=== PATIENT | female | born 1950 | race Caucasian/White ===

== ENCOUNTER 2016-12-21 11:32 | Emergency (ER) | payer MEDICARE ==
[2016-12-21] MEDS ORDERED: SODIUM CHLORIDE 0.9% 500 ML IV STA (11:35)
--- NOTE | 2016-12-21 11:39 | ED ---
General Adult HPI - General Stated complaint: Seizure Time Seen by Provider: 12/21/16 11:32 Source: RN notes reviewed - History of Present Illness Initial comments: This is a 66-year-old female who presents to the emergency department with past medical history significant for a previous stroke 2 years ago. Patient states she has right-sided residual weakness. Patient comes in today stating that at home she started to fade off and she could hear everybody talking around her but she couldn't see them and she couldn't speak family states she did not have any seizure-like activity and they also states she was not responding to them as she is indicated. When EMS arrived she still was difficult to arouse but a sternal rub seemed to awake her and she was able to talk to them and is back at her baseline. Patient currently has no complaints per patient denies any recent fever chills or cough per patient denies any chest pain palpitations or difficulty breathing. Patient denies headache patient denies numbness weakness. Patient denies any syncopal or near syncopal episode. Patient denies any injury or trauma. - Related Data Home Medications Medication Instructions Recorded Confirmed Phenytoin Sodium Extended 200 mg PO BID 08/09/15 12/21/16 [Dilantin] Clopidogrel [Plavix] 75 mg PO DAILY 12/21/16 12/21/16 Gabapentin [Neurontin] 100 mg PO BID 12/21/16 12/21/16 Simvastatin [Zocor] 40 mg PO HS 12/21/16 12/21/16 Allergies Allergy/AdvReac Type Severity Reaction Status Date / Time Iodinated Contrast Media - Allergy Anaphylaxis Verified 12/21/16 12:22 Oral and [Iodinated Contrast Media - IV Dye] Penicillins Allergy Swelling Verified 12/21/16 12:22 Review of Systems ROS Statement: Those systems with pertinent positive or pertinent negative responses have been documented in the HPI. ROS Other: All systems not noted in ROS Statement are negative. Past Medical History Past Medical History: COPD, CVA/TIA, Pneumonia, Seizure Disorder Additional Past Medical History / Comment(s): Pt is being admitted with seizure , CVA, AMS. Other HX: epilepsy- pt believes her last true seizure was 9 yrs ago History of Any Multi-Drug Resistant Organisms: None Reported Past Surgical History: Appendectomy, Tubal Ligation Additional Past Surgical History / Comment(s): part of Right ovary removed Past Anesthesia/Blood Transfusion Reactions: No Reported Reaction Additional Past Anesthesia/Blood Transfusion Reaction / Comment(s): Pt states she has never recieved blood. Past Psychological History: No Psychological Hx Reported Additional Psychological History / Comment(s): Pt states she has no psychological conditions. She lives with her spouse and adult manish. She uses no assistive device. She no longer drives-her spouse and manish take her places. She is independent. Smoking Status: Current every day smoker Past Alcohol Use History: None Reported Additional Past Alcohol Use History / Comment(s): Pt states since May 2015 she has cut down on her smoking to about 5 cigarettes a day. She is trying to quit altogether. Past Drug Use History: None Reported - Past Family History Mother Family Medical History: Respiratory Disorder Additional Family Medical History / Comment(s): Mother had pneumo's. She was a heavy smoker. She comitted suicide at 59yrs of age. Father Family Medical History: Congestive Heart Failure (CHF), Myocardial Infarction ( [place]), Renal Disease Additional Family Medical History / Comment(s): Father was an alcoholic. He had CHF and 7 [place]'s. He had one kidney that never developed after age 2yrs. He of kidney failure. General Exam - General Exam Comments Initial Comments: GENERAL: Patient is well-developed and well-nourished. Patient is nontoxic and well- hydrated and is in no acute distress. ENT: Neck is soft and supple. No significant lymphadenopathy is noted. Oropharynx is clear. Moist mucous membranes. Neck has full range of motion without eliciting any pain. EYES: The sclera were anicteric and conjunctiva were pink and moist. Extraocular movements were intact and pupils were equal round and reactive to light. Eyelids were unremarkable. PULMONARY: Unlabored respirations. Good breath sounds bilaterally. No audible rales rhonchi or wheezing was noted. CARDIOVASCULAR: There is a regular rate and rhythm without any murmurs gallops or rubs. ABDOMEN: Soft and nontender with normal bowel sounds. No palpable organomegaly was noted. There is no palpable pulsatile mass. SKIN: Skin is clear with no lesions or rashes and otherwise unremarkable. NEUROLOGIC: Patient is alert and oriented x3. Cranial nerves II through XII are grossly intact. Patient has some right-sided weakness in her leg when compared to the left however she states this is normal for her and it is not any worse than normal.. Normal speech, volume and content. Symmetrical smile. MUSCULOSKELETAL: Normal extremities with adequate strength and full range of motion. No lower extremity swelling or edema. No calf tenderness. LYMPHATICS: No significant lymphadenopathy is noted PSYCHIATRIC: Normal psychiatric evaluation. Normal interpersonal interactions appears functionally intact in deals appropriately with others. No signs of depression. No signs of anxiety. Course Vital Signs 12/21/16 12/21/16 12/21/16 11:33 12:50 13:41 Temperature 97.4 F L Pulse Rate 81 81 93 Respiratory 16 16 16 Rate Blood Pressure 129/76 137/75 134/77 O2 Sat by Pulse 95 96 96 Oximetry Medical Decision Making - Medical Decision Making EKG shows normal sinus rhythm at 77 bpm OK interval 136 QRS is 70 QT interval 388 QTC is 439 per patient's EKG shows no ST segment elevation or depression or T-wave abdomen is noted. showed up after a little well-nourished spoke with him he was 100% convinced that she had had a seizure at home 2. states he has been witnessing seizures for 45 years and is 100% sure today was a seizure. I loaded the patient with 500 of Dilantin. Patient states she did not take her Dilantin yesterday or today - Lab Data Result diagrams: 12/21/16 11:52 12/21/16 11:52 Lab Results 12/21/16 12/21/16 12/21/16 Range/Units 11:52 11:52 11:52 WBC 8.4 (3.8-10.6) k/uL RBC 5.33 (3.80-5.40) m/uL Hgb 16.7 H (11.4-16.0) gm/dL Hct 50.4 H (34.0-46.0) % MCV 94.6 (80.0-100.0) fL MCH 31.4 (25.0-35.0) pg MCHC 33.2 (31.0-37.0) g/dL RDW 12.1 (11.5-15.5) % Plt Count 184 (150-450) k/uL Neutrophils % 78 % Lymphocytes % 16 % Monocytes % 4 % Eosinophils % 1 % Basophils % 0 % Neutrophils # 6.5 (1.3-7.7) k/uL Lymphocytes # 1.3 (1.0-4.8) k/uL Monocytes # 0.4 (0-1.0) k/uL Eosinophils # 0.1 (0-0.7) k/uL Basophils # 0.0 (0-0.2) k/uL PT (9.0-12.0) sec INR (<1.1) APTT (22.0-30.0) sec Sodium 141 (137-145) mmol/L Potassium 4.4 (3.5-5.1) mmol/L Chloride 103 (98-107) mmol/L Carbon Dioxide 26 (22-30) mmol/L Anion Gap 12 mmol/L BUN 7 (7-17) mg/dL Creatinine 0.53 (0.52-1.04) mg/dL Est GFR (MDRD) Af Amer >60 (>60 ml/min/1.73 sqM) Est GFR (MDRD) Non-Af >60 (>60 ml/min/1.73 sqM) Glucose 165 H (74-99) mg/dL Calcium 9.4 (8.4-10.2) mg/dL Total Bilirubin 0.4 (0.2-1.3) mg/dL AST 25 (14-36) U/L ALT 40 (9-52) U/L Alkaline Phosphatase 139 H (38-126) U/L Total Creatine Kinase 50 (30-135) U/L CK-MB (CK-2) 3.7 H* (0.0-2.4) ng/mL CK-MB (CK-2) Rel Index 7.4 Troponin I <0.012 (0.000-0.034) ng/mL Total Protein 7.1 (6.3-8.2) g/dL Albumin 4.1 (3.5-5.0) g/dL Urine Color Urine Appearance (Clear) Urine pH (5.0-8.0) Ur Specific [place] (1.001-1.035) Urine Protein (Negative) Urine Glucose (UA) (Negative) Urine Ketones (Negative) Urine Blood (Negative) Urine Nitrate (Negative) Urine Bilirubin (Negative) Urine Urobilinogen (<2.0) mg/dL Ur Leukocyte Esterase (Negative) Phenytoin ug/mL 12/21/16 12/21/16 12/21/16 Range/Units 11:52 12:06 12:47 WBC (3.8-10.6) k/uL RBC (3.80-5.40) m/uL Hgb (11.4-16.0) gm/dL Hct (34.0-46.0) % MCV (80.0-100.0) fL MCH (25.0-35.0) pg MCHC (31.0-37.0) g/dL RDW (11.5-15.5) % Plt Count (150-450) k/uL Neutrophils % % Lymphocytes % % Monocytes % % Eosinophils % % Basophils % % Neutrophils # (1.3-7.7) k/uL Lymphocytes # (1.0-4.8) k/uL Monocytes # (0-1.0) k/uL Eosinophils # (0-0.7) k/uL Basophils # (0-0.2) k/uL PT 10.1 (9.0-12.0) sec INR 1.0 (<1.1) APTT 23.6 (22.0-30.0) sec Sodium (137-145) mmol/L Potassium (3.5-5.1) mmol/L Chloride (98-107) mmol/L Carbon Dioxide (22-30) mmol/L Anion Gap mmol/L BUN (7-17) mg/dL Creatinine (0.52-1.04) mg/dL Est GFR (MDRD) Af Amer (>60 ml/min/1.73 sqM) Est GFR (MDRD) Non-Af (>60 ml/min/1.73 sqM) Glucose (74-99) mg/dL Calcium (8.4-10.2) mg/dL Total Bilirubin (0.2-1.3) mg/dL AST (14-36) U/L ALT (9-52) U/L Alkaline Phosphatase (38-126) U/L Total Creatine Kinase (30-135) U/L CK-MB (CK-2) (0.0-2.4) ng/mL CK-MB (CK-2) Rel Index Troponin I (0.000-0.034) ng/mL Total Protein (6.3-8.2) g/dL Albumin (3.5-5.0) g/dL Urine Color Light Yellow Urine Appearance Clear (Clear) Urine pH 6.5 (5.0-8.0) Ur Specific [place] 1.002 (1.001-1.035) Urine Protein Negative (Negative) Urine Glucose (UA) Negative (Negative) Urine Ketones Negative (Negative) Urine Blood Negative (Negative) Urine Nitrate Negative (Negative) Urine Bilirubin Negative (Negative) Urine Urobilinogen <2.0 (<2.0) mg/dL Ur Leukocyte Esterase Negative (Negative) Phenytoin 5.4 ug/mL Disposition Clinical Impression: Generalized seizure Disposition: HOME SELF-CARE Condition: Good Instructions: Recurrent Seizures in Adults (ED) Referrals: Anup Ron DO [Primary Care Provider] - 1-2 days Time of Disposition: 14:14
[2016-12-21 11:41] VITALS: RESP 16
[2016-12-21 12:03] LABS: Basophils % (A) 0 %; CH 32.1; CHCM 34.1; Eosinophils # (A) 0.1 k/uL (0-0.7); Eosinophils % (A) 1 %; HCT 50.4 % (34.0-46.0); HDW 2.36; HGB 16.7 gm/dL (11.4-16.0); Luc # (Auto) 0.08; Luc % (Auto) 1; Lymphocytes # (A) 1.3 k/uL (1.0-4.8); Lymphocytes % (A) 16 %; MCH 31.4 pg (25.0-35.0); MCHC 33.2 g/dL (31.0-37.0); MCV 94.6 fL (80.0-100.0); Mean Platelet Volume 7.4; Monocytes # (A) 0.4 k/uL (0-1.0); Monocytes % (A) 4 %; Neutrophils # (A) 6.5 k/uL (1.3-7.7); Neutrophils % (A) 78 %; RBC 5.33 m/uL (3.80-5.40); RDW 12.1 % (11.5-15.5); WBC 8.4 k/uL (3.8-10.6); WBC (Perox) 8.56
[2016-12-21 12:13] LABS: ALT 40 U/L (9-52); AST 25 U/L (14-36); Alkaline Phosphatase 139 U/L (38-126); Anion Gap 12 mmol/L; Blood Urea Nitrogen 7 mg/dL (7-17); Calcium 9.4 mg/dL (8.4-10.2); Carbon Dioxide 26 mmol/L (22-30); Chloride 103 mmol/L (98-107); Glucose 165 mg/dL (74-99); Non-African American GFR(MDRD) >60 (>60 ml/min/1.73 sqM); Potassium 4.4 mmol/L (3.5-5.1); Sodium 141 mmol/L (137-145); Total Bilirubin 0.4 mg/dL (0.2-1.3); Total Protein 7.1 g/dL (6.3-8.2)
[2016-12-21 12:20] LABS: Appearance,Urine Clear (Clear); Bilirubin,Urine Negative (Negative); Glucose,Urine (UA) Negative (Negative); Ketones,Urine Negative (Negative); Leukocyte Esterase,Urine Negative (Negative); Nitrite,Urine Negative (Negative); PH, Urine 6.5 (5.0-8.0); Protein,Urine Negative (Negative); Specific Gravity,Urine 1.002 (1.001-1.035); UA Billing (MACRO vs. MICRO) CHEM; Urobilinogen,Urine <2.0 mg/dL (<2.0)
[2016-12-21 12:21] LABS: Partial Thromboplastin Time 23.6 sec (22.0-30.0); Prothrombin Time 10.1 sec (9.0-12.0)
[2016-12-21 12:23] LABS: Creatine Kinase 50 U/L (30-135)
--- NOTE | 2016-12-21 12:30 | CT ---
EXAMINATION TYPE: CT brain wo con DATE OF EXAM: 12/21/2016 12:23 PM COMPARISON: 04/15/2016 HISTORY: 66-year-old female, left sided weakness, possible seizure TECHNIQUE: Examination was done in axial plane without intravenous contrast. Coronal and sagittal reconstructio ns performed. CT DLP: 930.8 mGycm Automated exposure control for dose reduction was used. FINDINGS: There is no evidence of acute intracranial hemorrhage, acute ischemic changes, mass, mass-effect, or extra-axial fluid collection. There is no effacement of cerebral sulci or basal subarachnoid cister ns. There is no hydrocephalus. There is no midline shift. Chaves-white matter distinction is preserv ed. Mild cerebral atrophy. Paranasal sinuses and mastoid air cells are well pneumatized. Leftward nasal septal deviation. Orbits and globes are intact. IMPRESSION: No acute intracranial abnormality seen. Similar mild atrophy.
--- NOTE | 2016-12-21 12:34 | XR ---
EXAMINATION TYPE: XR chest 2V DATE OF EXAM: 12/21/2016 12:30 PM COMPARISON: 04/15/2016 HISTORY: 66 year-old female altered mental status, seizure, confusion TECHNIQUE: Frontal and lateral views FINDINGS: Heart is normal size. Mild atelectatic arch calcifications. There is some prominence to the central p ulmonary arteries which could signify underlying pulmonary arterial hypertension. Mild interstitial p rominence and mild hyperinflation are unchanged. No consolidation or pleural effusion. IMPRESSION: Chronic changes, possible underlying COPD. No acute process seen.
[2016-12-21 12:35] LABS: Troponin I <0.012 ng/mL (0.000-0.034)
[2016-12-21 12:47] LABS: Creatine Kinase MB 3.7 ng/mL (0.0-2.4)
[2016-12-21] MEDS ORDERED: PHENYTOIN SODIUM INJ 500 MG in SODIUM CHLORIDE 0.9% 100 ML IVPB STA (14:13)
[2016-12-21 14:30] VITALS: BP 128/73; PULSE 77; TEMP 97.8
== END 2016-12-21 15:06 | disposition home or self-care (01) ==
LOC: EC 11:32
DX: G40.909 Epilepsy, unspecified, not intractable, without status epilepticus (principal); I69.351 Hemiplegia and hemiparesis following cerebral infarction affecting right dominant side; Z79.899 Other long term (current) drug therapy; Z79.02 Long term (current) use of antithrombotics/antiplatelets; Z88.0 Allergy status to penicillin; Z91.041 Radiographic dye allergy status; F17.210 Nicotine dependence, cigarettes, uncomplicated
CPT/HCPCS: 36415; 93005; 80053; 82550; 82553; 80185; 84484; 85025; 85610; 85730; 81003; 71020; 70450; 96365; 96361 ×2; 99285; J1165

== ENCOUNTER 2019-07-23 08:16 | Emergency (ER) | payer MEDICARE ==
[2019-07-23] MEDS ORDERED: SODIUM CHLORIDE 0.9% 500 ML 500 ML IV STA (08:23)
[2019-07-23 08:28] LABS: Glucose,Whole Blood 138 mg/dL (75-99)
[2019-07-23] MEDS ORDERED: FAMOTIDINE 20 MG/2 ML VIAL IV STA (08:30)
[2019-07-23] MEDS ORDERED: diphenhydrAMINE 50 MG/ML 1 ML VIAL IVP STA (08:30)
[2019-07-23] MEDS ORDERED: methylPREDNISolone SOD SUCCI 125 MG/2 ML VIAL IV STA (08:30)
[2019-07-23 08:43] LABS: Basophils # (A) 0.1 k/uL (0-0.2); Basophils % (A) 1 %; Eosinophils # (A) 0.1 k/uL (0-0.7); Eosinophils % (A) 1 %; HCT 46.6 % (34.0-46.0); HGB 16.1 gm/dL (11.4-16.0); Lymphocytes # (A) 1.7 k/uL (1.0-4.8); Lymphocytes % (A) 17 %; MCH 31.9 pg (25.0-35.0); MCHC 34.4 g/dL (31.0-37.0); MCV 92.5 fL (80.0-100.0); Mean Platelet Volume 7.8; Monocytes # (A) 0.4 k/uL (0-1.0); Monocytes % (A) 4 %; Neutrophils # (A) 7.5 k/uL (1.3-7.7); Neutrophils % (A) 76 %; Platelet Count 208 k/uL (150-450); RBC 5.04 m/uL (3.80-5.40); RDW 14.1 % (11.5-15.5); WBC 9.9 k/uL (3.8-10.6)
[2019-07-23 08:48] VITALS: TEMP 98.2
[2019-07-23 08:49] LABS: ALT 37 U/L (9-52); AST 27 U/L (14-36); African American GFR (CKD) >90 (>60 ml/min/1.73 sqM); Albumin 4.2 g/dL (3.5-5.0); Alkaline Phosphatase 159 U/L (38-126); Anion Gap 8 mmol/L; Blood Urea Nitrogen 8 mg/dL (7-17); Calcium 9.3 mg/dL (8.4-10.2); Carbon Dioxide 26 mmol/L (22-30); Chloride 102 mmol/L (98-107); Glucose 140 mg/dL (74-99); Potassium 4.6 mmol/L (3.5-5.1); Sodium 136 mmol/L (137-145); Total Bilirubin 0.5 mg/dL (0.2-1.3); Total Protein 7.3 g/dL (6.3-8.2)
[2019-07-23 08:52] LABS: INR 0.9 (<1.2); Partial Thromboplastin Time 25.8 sec (22.0-30.0); Prothrombin Time 9.7 sec (9.0-12.0)
--- NOTE | 2019-07-23 08:57 | ED ---
General Adult HPI - General Chief complaint: Neuro Symptoms/Deficit Stated complaint: POSS CVA Time Seen by Provider: 07/23/19 08:16 Source: EMS, RN notes reviewed Mode of arrival: EMS Limitations: altered mental status, physical limitation - History of Present Illness Initial comments: This is a 69-year-old female who presents emergency Department strokelike symptoms on the left side. Patient has a past history of a stroke on the right side with residual deficit but to what degree is difficult to assess the is a poor historian and the is unable to tell us. Patient did receive TPA in the past and post-TPA did have a intracranial hemorrhage according to the . Patient also has had occasional seizures since the first stroke. Patient comes in today because she started at 7:00 having some tingling to the left side of her face decreased visual acuity out of the left eye and decreased ability to move the left arm and leg. This history comes from the the patient is unable to give me the history she does not appear to fully understand what is going on at this time. Doing an NIH scale because the patient does not fully seem to understand. states yesterday she was complaining of a left ear ache and she did put something in her ear yesterday but aside from that states she was at her normal baseline. - Related Data Home Medications Medication Instructions Recorded Confirmed Phenytoin Sodium Extended 200 mg PO BID 08/09/15 07/23/19 [Dilantin] Clopidogrel [Plavix] 75 mg PO DAILY 12/21/16 07/23/19 Gabapentin [Neurontin] 200 mg PO QAM 12/21/16 07/23/19 Aspirin EC [Ecotrin Low Dose] 81 mg PO DAILY 07/23/19 07/23/19 Gabapentin [Neurontin] 100 mg PO BID@1400,2100 07/23/19 07/23/19 Allergies Allergy/AdvReac Type Severity Reaction Status Date / Time Iodinated Contrast- Oral and Allergy Anaphylaxis Verified 07/23/19 08:58 IV Dye [Iodinated Contrast Media - IV Dye] Penicillins Allergy Swelling Verified 07/23/19 08:58 Review of Systems ROS Statement: Those systems with pertinent positive or pertinent negative responses have been documented in the HPI. ROS Other: All systems not noted in ROS Statement are negative. Past Medical History Past Medical History: COPD, CVA/TIA, Pneumonia, Seizure Disorder Additional Past Medical History / Comment(s): Pt is being admitted with seizure, CVA, AMS. Other HX: epilepsy- pt believes her last true seizure was 9 yrs ago History of Any Multi-Drug Resistant Organisms: None Reported Past Surgical History: Appendectomy, Tubal Ligation Additional Past Surgical History / Comment(s): part of Right ovary removed Past Anesthesia/Blood Transfusion Reactions: No Reported Reaction Additional Past Anesthesia/Blood Transfusion Reaction / Comment(s): Pt states she has never recieved blood. Past Psychological History: No Psychological Hx Reported Smoking Status: Current every day smoker Past Alcohol Use History: None Reported Past Drug Use History: None Reported - Past Family History Mother Family Medical History: Respiratory Disorder Additional Family Medical History / Comment(s): Mother had pneumo's. She was a heavy smoker. She comitted suicide at 59yrs of age. Father Family Medical History: Congestive Heart Failure (CHF), Myocardial Infarction ([place]), Renal Disease Additional Family Medical History / Comment(s): Father was an alcoholic. He had CHF and 7 [place]'s. He had one kidney that never developed after age 2yrs. He of kidney failure. General Exam - General Exam Comments Initial Comments: GENERAL: Patient is well-developed and well-nourished. Patient is nontoxic and well- hydrated and is in mild distress. ENT: Neck is soft and supple. No significant lymphadenopathy is noted. Oropharynx is clear. Moist mucous membranes. Neck has full range of motion without eliciting any pain. EYES: The sclera were anicteric and conjunctiva were pink and moist. Extraocular movements were intact and pupils were equal round and reactive to light. Eyelids were unremarkable. PULMONARY: Unlabored respirations. Good breath sounds bilaterally. No audible rales rhonc hi or wheezing was noted. CARDIOVASCULAR: There is a regular rate and rhythm without any murmurs gallops or rubs. ABDOMEN: Soft and nontender with normal bowel sounds. No palpable organomegaly was noted. There is no palpable pulsatile mass. SKIN: Skin is clear with no lesions or rashes and otherwise unremarkable. NEUROLOGIC: Patient is alert and oriented times one. For the further specifics of the neurologic exam please see the NIH worksheet. Patient's inability to understand the situation makes it very difficult to do an accurate assessment of her neurologic exam MUSCULOSKELETAL: Patient would not move the right side of her body at all for me but states she has some deficit there but normally can move it a little. LYMPHATICS: No significant lymphadenopathy is noted PSYCHIATRIC: Unable to assess since patient does not appear to understand what is going on in the emergency department. Limitations: altered mental status, physical limitation Course Vital Signs 07/23/19 07/23/19 07/23/19 08:18 08:20 08:35 Temperature 98.2 F Pulse Rate 101 H 90 94 Respiratory 22 20 20 Rate Blood Pressure 179/81 154/88 164/85 O2 Sat by Pulse 92 L 96 96 Oximetry 07/23/19 07/23/19 07/23/19 08:50 09:05 09:20 Temperature Pulse Rate 91 86 83 Respiratory 20 16 16 Rate Blood Pressure 157/80 144/77 133/86 O2 Sat by Pulse 98 98 99 Oximetry 07/23/19 10:02 Temperature Pulse Rate 86 Respiratory 16 Rate Blood Pressure 128/74 O2 Sat by Pulse 99 Oximetry Medical Decision Making - Medical Decision Making EKG shows a normal sinus rhythm at 90 bpm MO interval is 132 QRS is 72 QT interval 366 QTC is 447. Patient's EKG shows no ST segment elevation or depression. After seeing the patient family called us code stroke. I spoke with Dr. Karimi about this patient he reviewed the CAT scans and spoke with the family and the patient's symptoms at this time resolving so he determined that no intervention would be necessary at this time. CT of the brain shows no acute abnormality. CTA of the head and neck shows no acute abnormality. I will begin to reevaluate the patient she had complete resolution of her symptoms. I spoke with [facility] they agreed to accept the patient we transfer the patient. - Lab Data Result diagrams: 07/23/19 08:30 07/23/19 08:30 Lab Results 07/23/19 07/23/19 07/23/19 Range/Units 08:20 08:30 08:30 WBC 9.9 (3.8-10.6) k/uL RBC 5.04 (3.80-5.40) m/uL Hgb 16.1 H (11.4-16.0) gm/dL Hct 46.6 H (34.0-46.0) % MCV 92.5 (80.0-100.0) fL MCH 31.9 (25.0-35.0) pg MCHC 34.4 (31.0-37.0) g/dL RDW 14.1 (11.5-15.5) % Plt Count 208 (150-450) k/uL Neutrophils % 76 % Lymphocytes % 17 % Monocytes % 4 % Eosinophils % 1 % Basophils % 1 % Neutrophils # 7.5 (1.3-7.7) k/uL Lymphocytes # 1.7 (1.0-4.8) k/uL Monocytes # 0.4 (0-1.0) k/uL Eosinophils # 0.1 (0-0.7) k/uL Basophils # 0.1 (0-0.2) k/uL PT (9.0-12.0) sec INR (<1.2) APTT (22.0-30.0) sec Sodium 136 L (137-145) mmol/L Potassium 4.6 (3.5-5.1) mmol/L Chloride 102 (98-107) mmol/L Carbon Dioxide 26 (22-30) mmol/L Anion Gap 8 mmol/L BUN 8 (7-17) mg/dL Creatinine 0.56 (0.52-1.04) mg/dL Est GFR (CKD-EPI)AfAm >90 (>60 ml/min/1.73 sqM) Est GFR (CKD-EPI)NonAf >90 (>60 ml/min/1.73 sqM) Glucose 140 H (74-99) mg/dL POC Glucose (mg/dL) 138 H (75-99) mg/dL POC Glu [employer] [place] Calcium 9.3 (8.4-10.2) mg/dL Total Bilirubin 0.5 (0.2-1.3) mg/dL AST 27 (14-36) U/L ALT 37 (9-52) U/L Alkaline Phosphatase 159 H (38-126) U/L Troponin I (0.000-0.034) ng/mL Total Protein 7.3 (6.3-8.2) g/dL Albumin 4.2 (3.5-5.0) g/dL Urine Color Urine Appearance (Clear) Urine pH (5.0-8.0) Ur Specific [place] (1.001-1.035) Urine Protein (Negative) Urine Glucose (UA) (Negative) Urine Ketones (Negative) Urine Blood (Negative) Urine Nitrite (Negative) Urine Bilirubin (Negative) Urine Urobilinogen (<2.0) mg/dL Ur Leukocyte Esterase (Negative) 07/23/19 07/23/19 07/23/19 Range/Units 08:30 08:30 10:20 WBC (3.8-10.6) k/uL RBC (3.80-5.40) m/uL Hgb (11.4-16.0) gm/dL Hct (34.0-46.0) % MCV (80.0-100.0) fL MCH (25.0-35.0) pg MCHC (31.0-37.0) g/dL RDW (11.5-15.5) % Plt Count (150-450) k/uL Neutrophils % % Lymphocytes % % Monocytes % % Eosinophils % % Basophils % % Neutrophils # (1.3-7.7) k/uL Lymphocytes # (1.0-4.8) k/uL Monocytes # (0-1.0) k/uL Eosinophils # (0-0.7) k/uL Basophils # (0-0.2) k/uL PT 9.7 (9.0-12.0) sec INR 0.9 (<1.2) APTT 25.8 (22.0-30.0) sec Sodium (137-145) mmol/L Potassium (3.5-5.1) mmol/L Chloride (98-107) mmol/L Carbon Dioxide (22-30) mmol/L Anion Gap mmol/L BUN (7-17) mg/dL Creatinine (0.52-1.04) mg/dL Est GFR (CKD-EPI)AfAm (>60 ml/min/1.73 sqM) Est GFR (CKD-EPI)NonAf (>60 ml/min/1.73 sqM) Glucose (74-99) mg/dL POC Glucose (mg/dL) (75-99) mg/dL POC Glu [employer] Calcium (8.4-10.2) mg/dL Total Bilirubin (0.2-1.3) mg/dL AST (14-36) U/L ALT (9-52) U/L Alkaline Phosphatase (38-126) U/L Troponin I <0.012 (0.000-0.034) ng/mL Total Protein (6.3-8.2) g/dL Albumin (3.5-5.0) g/dL Urine Color Light Yellow Urine Appearance Clear (Clear) Urine pH 6.5 (5.0-8.0) Ur Specific [place] 1.016 (1.001-1.035) Urine Protein Negative (Negative) Urine Glucose (UA) Negative (Negative) Urine Ketones Negative (Negative) Urine Blood Negative (Negative) Urine Nitrite Negative (Negative) Urine Bilirubin Negative (Negative) Urine Urobilinogen <2.0 (<2.0) mg/dL Ur Leukocyte Esterase Negative (Negative) Critical Care Time Critical Care Time: Yes Total Critical Care Time: 35 Disposition Clinical Impression: TIA (transient ischemic attack) Disposition: OTHER INSTITUTION NOT DEFINED Instructions (If sedation given, give patient instructions): Transient Ischemic Attack (ED) Referrals: Anup Ron DO [Primary Care Provider] - 1-2 days Time of Disposition: 10:13 - Out of Hospital Transfer - Req. Specs Out of Hospital Transfer - Requested Specifics: Other Emergency Center ([facility])
[2019-07-23 09:16] VITALS: RESP 16
--- NOTE | 2019-07-23 09:21 | CT ---
EXAMINATION TYPE: CT brain wo con for TPA DATE OF EXAM: 07/23/2019 COMPARISON: 12/21/2016 INDICATION: Possible CVA DLP: 1473.4 mGycm, Automated exposure control for dose reduction was used. CONTRAST: None CT of the brain is performed utilizing 3 mm thick sections through the posterior fossa and 3 mm thick sections through the remaining calvarium. Study is performed within 24 hours of arrival to the hosp ital. No abnormal hyperdensity is present to suggest an acute intracranial hemorrhage. No mass lesion is evident. No acute infarcts are evident. Subtle periventricular white matter hypodensity may be present likely on the basis of chronic white matter ischemic changes. Ventricles and sulci are mildly prominent for the patient age. Paranasal sinuses and mastoid air cells within the [id number] are clear. IMPRESSIONS: 1. Age-related atrophy with chronic appearing white matter changes. 2. No acute intracranial process radiographically apparent at this time.
[2019-07-23] MEDS ORDERED: ASPIRIN 325 MG TAB PO STA (09:50)
[2019-07-23] MEDS ORDERED: CLOPIDOGREL 75 MG TAB PO STA (09:50)
--- NOTE | 2019-07-23 09:58 | CT ---
EXAMINATION TYPE: CT angio head neck DATE OF EXAM: 07/23/2019 HISTORY: Possible CVA COMPARISON: None CT DLP: 1473.4 mGycm. Automated Exposure Control for Dose Reduction was Utilized. TECHNIQUE: CTA scan of the neck is performed without and with IV Contrast, patient injected with 50 ml mL of Isovue 370, axial images are obtained, coronal and sagittal reformatted images are reviewed. Three-D reconstructed images are created on an independent workstation and reviewed. Source images are reviewed. FINDINGS: Carotid/Vascular Structures: There is a two-vessel arch with the innominate giving rise to the right subclavian and left common carotid artery. Vertebral arteries are codominant. Internal carotid arteri es appear normal without stenosis. Carotid bifurcations and atheromatous plaquing without significant narrowing. This may be greater on the left. Cervical of [place]: Vertebral basilar system appears normal. Posterior cerebral vasculature is unrema rkable. Internal carotid arteries bifurcate normally into A1 and M1 segments. A2 segments are normal. The anterior communicating artery is patent. Posterior communicating arteries appear absent. Other: Lung apices within the [id number] are clear. Emphysematous changes are present. Portion of the thyroid visualized is normal. Vocal cord level appear symmetrical. IMPRESSION: 1. Atheromatous plaquing without significant flow-limiting stenosis is present on the left carotid bi furcation. The right carotid bifurcation has minimal plaquing. 2. Normal round [place]
[2019-07-23 10:03] VITALS: BP 128/74; PULSE 86
[2019-07-23 10:34] LABS: Appearance,Urine Clear (Clear); Bilirubin,Urine Negative (Negative); Blood,Urine Negative (Negative); Color,Urine Light Yellow; Glucose,Urine (UA) Negative (Negative); Ketones,Urine Negative (Negative); Leukocyte Esterase,Urine Negative (Negative); Nitrite,Urine Negative (Negative); PH, Urine 6.5 (5.0-8.0); Protein,Urine Negative (Negative); Specific Gravity,Urine 1.016 (1.001-1.035); Urobilinogen,Urine <2.0 mg/dL (<2.0)
--- NOTE | 2019-07-23 10:53 | XR ---
EXAMINATION TYPE: XR chest 2V DATE OF EXAM: 07/23/2019 COMPARISON: 12/21/2016 INDICATION: Altered mental status TECHNIQUE: Frontal and lateral views of the chest are obtained. FINDINGS: The heart size is normal. The pulmonary vasculature is normal. The lungs are clear. There is hyperinflation flattening the diaphragms compatible COPD. IMPRESSION: 1. No acute pulmonary process. 2. COPD
== END 2019-07-23 10:55 | disposition short-term general hospital (02) ==
LOC: EC 08:16
DX: G45.9 Transient cerebral ischemic attack, unspecified (principal); H92.02 Otalgia, left ear; G40.909 Epilepsy, unspecified, not intractable, without status epilepticus; F17.200 Nicotine dependence, unspecified, uncomplicated; Z88.0 Allergy status to penicillin; Z91.041 Radiographic dye allergy status; Z79.02 Long term (current) use of antithrombotics/antiplatelets; Z79.82 Long term (current) use of aspirin; Z79.899 Other long term (current) drug therapy; Z86.69 Personal history of other diseases of the nervous system and sense organs; Z53.8 Procedure and treatment not carried out for other reasons
CPT/HCPCS: 36415; 93005; 80053; 84484; 85025; 85610; 85730; 81003; 71046; 70496; 70450; 70498; 99291; Q9967

== ENCOUNTER 2021-06-11 14:32 | Inpatient (IN) | payer MEDICARE ==
--- NOTE | 2021-06-11 15:19 | ED ---
General Adult HPI - General Chief complaint: Weakness Stated complaint: [place], problems urinating Time Seen by Provider: 06/11/21 15:19 Source: patient, family Mode of arrival: wheelchair Limitations: no limitations - History of Present Illness Initial comments: Sarina is a 71-year-old female brought to the ER today for evaluation of abdominal pain, nausea and decreased urine output. Patient was in her usual state of health throughout the day yesterday. They ate hamburgers for dinner. Around bedtime she developed some severe abdominal pain. Pain was right-sided associated with nausea and nonbilious vomiting. Pain persisted throughout the day today. Patient had persistent nausea she's not been eating or drinking well. In addition she does feel the urge to urinate but is only dribbling. She said she may be dehydrated. Patient does have a history of a stroke in the past, she suffers from an acute neurologic pain and has had seizures for which she is on Dilantin. - Related Data Home Medications Medication Instructions Recorded Confirmed Phenytoin Sodium Extended 100 mg PO TID 08/09/15 06/11/21 [Dilantin] Clopidogrel [Plavix] 75 mg PO DAILY 12/21/16 06/11/21 Aspirin EC [Ecotrin Low Dose] 81 mg PO DAILY 07/23/19 06/11/21 Gabapentin [Neurontin] 100 mg PO QID 07/23/19 06/11/21 Ascorbic Acid [Vitamin C] 1,000 mg PO DAILY 06/11/21 06/11/21 Calcium Carb/Mag Ox/Zinc Sulf 1 tab PO DAILY 06/11/21 06/11/21 [Uog-Vwd-Tunn 334-134-5 mg Tab] L.acidoph,Paracasei, B.lactis 1 cap PO DAILY 06/11/21 06/11/21 [Probiotic] Ubidecarenone [Co Q-10] 100 mg PO DAILY 06/11/21 06/11/21 Allergies Allergy/AdvReac Type Severity Reaction Status Date / Time Iodinated Contrast Media Allergy Anaphylaxis Verified 06/11/21 16:16 [Iodinated Contrast Media - IV Dye] Penicillins Allergy Swelling Verified 06/11/21 16:16 Review of Systems ROS Statement: Those systems with pertinent positive or pertinent negative responses have been documented in the HPI. ROS Other: All systems not noted in ROS Statement are negative. Past Medical History Past Medical History: COPD, CVA/TIA, Pneumonia, Seizure Disorder Additional Past Medical History / Comment(s): Pt is being admitted with seizure, CVA, AMS. Other HX: epilepsy- pt believes her last true seizure was 9 yrs ago History of Any Multi-Drug Resistant Organisms: None Reported Past Surgical History: Appendectomy, Tubal Ligation Additional Past Surgical History / Comment(s): part of Right ovary removed Past Anesthesia/Blood Transfusion Reactions: No Reported Reaction Additional Past Anesthesia/Blood Transfusion Reaction / Comment(s): Pt states she has never recieved blood. Past Psychological History: No Psychological Hx Reported Smoking Status: Current every day smoker Past Alcohol Use History: None Reported Past Drug Use History: None Reported - Past Family History Mother Family Medical History: Respiratory Disorder Additional Family Medical History / Comment(s): Mother had pneumo's. She was a heavy smoker. She comitted suicide at 59yrs of age. Father Family Medical History: Congestive Heart Failure (CHF), Myocardial Infarction ([place]), Renal Disease Additional Family Medical History / Comment(s): Father was an alcoholic. He had CHF and 7 [place]'s. He had one kidney that never developed after age 2yrs. He of kidney failure. General Exam - General Exam Comments Initial Comments: Physical Exam GENERAL: Patient is well-developed and well-nourished. Patient is nontoxic and well-hydrated and is in no distress. HENT: Normocephalic, Atraumatic. EYES: PERRL, EOMI PULMONARY: Unlabored respirations. CARDIOVASCULAR: RRR Warm and well perfused extremities ABDOMEN: Tenderness to palpation RUQ Scar in RLQ hx of oopherectomy and appendectomy SKIN: No rashes or bruising : Deferred NEUROLOGIC: Alert and oriented MUSCULOSKELETAL: Moving all extremities with no apparent injury PSYCHIATRIC: No SI/HI Limitations: no limitations Course Vital Signs 06/11/21 06/11/21 15:01 18:18 Temperature 98.2 F 97.9 F Pulse Rate 104 H 109 H Respiratory 20 18 Rate Blood Pressure 155/73 149/70 O2 Sat by Pulse 94 L 94 L Oximetry EKG Findings - EKG Comments: EKG Findings:: EKG was obtained as part of the infectious workup, EKG was obtained at 1509 rate is 105 rhythm is sinus tach normal axis normal intervals. 128 QRS 76 QTC is 411 there is no acute ST elevations or depressions no evidence of ischemia or infarction. Medical Decision Making - Medical Decision Making The patient was seen and evaluated history is obtained from patient and family at bedside Patient with 24 hours of abdominal pain nausea vomiting feels generalized weakness not producing much urine Labs and imaging were obtained Labs and imaging are concerning for acute cholecystitis, no signs of obstructive gallstone, no pancreatitis, no fever or jaundice or elevated bili concern for ascending cholangitis at this time Facial be treated with IV antibiotics admitted to the medicine service with Dr. Gomez consult for likely need for cholecystectomy. This plan was discussed with Dr. Gomez and Linda Youssef of the [facility] hospitalist group who accepts the admission, - Lab Data Result diagrams: 06/11/21 16:06 06/11/21 16:06 Lab Results 06/11/21 06/11/21 06/11/21 Range/Units 16:06 16:06 16:06 WBC 20.1 H (3.8-10.6) k/uL RBC 4.91 (3.80-5.40) m/uL Hgb 15.7 (11.4-16.0) gm/dL Hct 46.1 H (34.0-46.0) % MCV 93.9 (80.0-100.0) fL MCH 31.9 (25.0-35.0) pg MCHC 34.0 (31.0-37.0) g/dL RDW 12.1 (11.5-15.5) % Plt Count 248 (150-450) k/uL MPV 8.3 Neutrophils % 89 % Lymphocytes % 5 % Monocytes % 4 % Eosinophils % 1 % Basophils % 0 % Neutrophils # 17.9 H (1.3-7.7) k/uL Lymphocytes # 1.1 (1.0-4.8) k/uL Monocytes # 0.8 (0-1.0) k/uL Eosinophils # 0.1 (0-0.7) k/uL Basophils # 0.0 (0-0.2) k/uL Sodium 128 L (137-145) mmol/L Potassium 4.2 (3.5-5.1) mmol/L Chloride 95 L (98-107) mmol/L Carbon Dioxide 26 (22-30) mmol/L Anion Gap 7 mmol/L BUN 10 (7-17) mg/dL Creatinine 0.36 L (0.52-1.04) mg/dL Est GFR (CKD-EPI)AfAm >90 (>60 ml/min/1.73 sqM) Est GFR (CKD-EPI)NonAf >90 (>60 ml/min/1.73 sqM) Glucose 144 H (74-99) mg/dL Plasma Lactic Acid Al (0.7-2.0) mmol/L Calcium 9.4 (8.4-10.2) mg/dL Total Bilirubin 0.5 (0.2-1.3) mg/dL AST 26 (14-36) U/L ALT 16 (4-34) U/L Alkaline Phosphatase 131 H (38-126) U/L Troponin I (0.000-0.034) ng/mL Total Protein 6.9 (6.3-8.2) g/dL Albumin 4.3 (3.5-5.0) g/dL Lipase 188 (23-300) U/L Urine Color Yellow Urine Appearance Cloudy H (Clear) Urine pH 5.5 (5.0-8.0) Ur Specific [place] 1.031 (1.001-1.035) Urine Protein 1+ H (Negative) Urine Glucose (UA) Negative (Negative) Urine Ketones Negative (Negative) Urine Blood Small H (Negative) Urine Nitrite Negative (Negative) Urine Bilirubin Negative (Negative) Urine Urobilinogen <2.0 (<2.0) mg/dL Ur Leukocyte Esterase Negative (Negative) Urine RBC 8 H (0-5) /hpf Urine WBC 2 (0-5) /hpf Ur Squamous Epith Cells 1 (0-4) /hpf Urine Bacteria Rare H (None) /hpf Urine Mucus Many H (None) /hpf 06/11/21 06/11/21 Range/Units 16:06 16:06 WBC (3.8-10.6) k/uL RBC (3.80-5.40) m/uL Hgb (11.4-16.0) gm/dL Hct (34.0-46.0) % MCV (80.0-100.0) fL MCH (25.0-35.0) pg MCHC (31.0-37.0) g/dL RDW (11.5-15.5) % Plt Count (150-450) k/uL MPV Neutrophils % % Lymphocytes % % Monocytes % % Eosinophils % % Basophils % % Neutrophils # (1.3-7.7) k/uL Lymphocytes # (1.0-4.8) k/uL Monocytes # (0-1.0) k/uL Eosinophils # (0-0.7) k/uL Basophils # (0-0.2) k/uL Sodium (137-145) mmol/L Potassium (3.5-5.1) mmol/L Chloride (98-107) mmol/L Carbon Dioxide (22-30) mmol/L Anion Gap mmol/L BUN (7-17) mg/dL Creatinine (0.52-1.04) mg/dL Est GFR (CKD-EPI)AfAm (>60 ml/min/1.73 sqM) Est GFR (CKD-EPI)NonAf (>60 ml/min/1.73 sqM) Glucose (74-99) mg/dL Plasma Lactic Acid Al 1.4 (0.7-2.0) mmol/L Calcium (8.4-10.2) mg/dL Total Bilirubin (0.2-1.3) mg/dL AST (14-36) U/L ALT (4-34) U/L Alkaline Phosphatase (38-126) U/L Troponin I <0.012 (0.000-0.034) ng/mL Total Protein (6.3-8.2) g/dL Albumin (3.5-5.0) g/dL Lipase (23-300) U/L Urine Color Urine Appearance (Clear) Urine pH (5.0-8.0) Ur Specific [place] (1.001-1.035) Urine Protein (Negative) Urine Glucose (UA) (Negative) Urine Ketones (Negative) Urine Blood (Negative) Urine Nitrite (Negative) Urine Bilirubin (Negative) Urine Urobilinogen (<2.0) mg/dL Ur Leukocyte Esterase (Negative) Urine RBC (0-5) /hpf Urine WBC (0-5) /hpf Ur Squamous Epith Cells (0-4) /hpf Urine Bacteria (None) /hpf Urine Mucus (None) /hpf Disposition Clinical Impression: Acute cholecystitis Disposition: ADMITTED IP TO THIS HOSP Condition: Serious Is patient prescribed a controlled substance at d/c from ED?: No
[2021-06-11] MEDS ORDERED: SODIUM CHLORIDE 0.9% 1,000 ML IV STA (15:56)
[2021-06-11] MEDS ORDERED: MORPHINE SULFATE 4 MG/ML SYRINGE IV STA (15:56)
[2021-06-11] MEDS ORDERED: ONDANSETRON ODT 8 MG TAB.RAPDIS PO STA (15:56)
[2021-06-11 16:14] LABS: Basophils % (A) 0 %; Eosinophils # (A) 0.1 k/uL (0-0.7); Eosinophils % (A) 1 %; HCT 46.1 % (34.0-46.0); HGB 15.7 gm/dL (11.4-16.0); Lymphocytes # (A) 1.1 k/uL (1.0-4.8); Lymphocytes % (A) 5 %; MCH 31.9 pg (25.0-35.0); MCV 93.9 fL (80.0-100.0); Mean Platelet Volume 8.3; Monocytes # (A) 0.8 k/uL (0-1.0); Monocytes % (A) 4 %; Neutrophils # (A) 17.9 k/uL (1.3-7.7); Neutrophils % (A) 89 %; Platelet Count 248 k/uL (150-450); RBC 4.91 m/uL (3.80-5.40); RDW 12.1 % (11.5-15.5); WBC 20.1 k/uL (3.8-10.6)
[2021-06-11 16:25] LABS: Carbon Dioxide 26 mmol/L (22-30); Chloride 95 mmol/L (98-107); Glucose 144 mg/dL (74-99); Potassium 4.2 mmol/L (3.5-5.1); Sodium 128 mmol/L (137-145)
[2021-06-11 16:26] LABS: ALT 16 U/L (4-34); AST 26 U/L (14-36); African American GFR (CKD) >90 (>60 ml/min/1.73 sqM); Albumin 4.3 g/dL (3.5-5.0); Alkaline Phosphatase 131 U/L (38-126); Anion Gap 7 mmol/L; Blood Urea Nitrogen 10 mg/dL (7-17); Calcium 9.4 mg/dL (8.4-10.2); Lipase 188 U/L (23-300); Non-African American GFR(CKD) >90 (>60 ml/min/1.73 sqM); Total Bilirubin 0.5 mg/dL (0.2-1.3); Total Protein 6.9 g/dL (6.3-8.2)
--- NOTE | 2021-06-11 16:26 | XR ---
EXAMINATION TYPE: XR chest 2V DATE OF EXAM: 06/11/2021 COMPARISON: 07/23/2019 INDICATION: Right rib pain TECHNIQUE: Frontal and lateral views of the chest are obtained. FINDINGS: The heart size is normal. The pulmonary vasculature is normal. The lungs are clear. No pneumothorax is evident. IMPRESSION: 1. No acute pulmonary process.
[2021-06-11] MEDS ORDERED: methylPREDNISolone SOD SUCCI 125 MG/2 ML VIAL IV STA (16:29)
[2021-06-11] MEDS ORDERED: diphenhydrAMINE 50 MG/ML 1 ML VIAL IVP STA (16:29)
[2021-06-11] MEDS ORDERED: FAMOTIDINE 20 MG/2 ML VIAL IV STA (16:29)
--- NOTE | 2021-06-11 17:21 | CT ---
EXAMINATION TYPE: CT abdomen pelvis w con DATE OF EXAM: 06/11/2021 COMPARISON: None HISTORY: Generalized pain. CT DLP: 589.8 mGycm Automated exposure control for dose reduction was used. CONTRAST: Performed with IV Contrast, patient injected with 100 mL of Isovue 300. Images obtained from the diaphragm to the floor the pelvis with IV contrast. Lung bases are clear of infiltrate. Heart size is normal. There is no pericardial effusion. There is no pleural effusion. There is minimal atelectasis right posterior lung base. There are small densities in the dependent gallbladder that are probably gallstones. Gallbladder is d istended and measures 4.4 cm. Liver shows no focal defect. The bile ducts are not dilated. Spleen sto mach pancreas appear intact. Liver is slightly enlarged and measures 20.5 cm. There is 1.5 cm low-density right adrenal mass.. Kidneys show satisfactory contrast opacification. Th ere is no hydronephrosis. Delayed images show normal renal excretion. Ureters are not dilated. There is no retroperitoneal adenopathy. The bladder distends smoothly. There is no inguinal hernia. I see n o free fluid in the pelvis. Appendix is not seen. There is no sign of thickened appendix. There is no mesenteric edema. There is no ascites or free air. There is no evidence of bowel obstruction. There is minimal fat stranding at the hepatic flexure of the colon. Lumbar vertebra have normal alignment. Posterior elements are intact. There is no compression fractur e. Disc spaces are fairly normal. Abdominal aorta is atheromatous. The bony pelvis is intact. Hip gregg nts are intact. IMPRESSION: Mildly dilated gallbladder suspicious for cholecystitis. Mild fat stranding at the hepatic flexure of the colon of uncertain significance. There is mild hepat omegaly. Atherosclerotic vascular disease. Small right adrenal mass is likely benign.
[2021-06-11] MEDS ORDERED: metroNIDAZOLE-NS PMX 500 MG in SALINE 1 100ML.BAG IVPB STA (17:27)
[2021-06-11] MEDS ORDERED: CEFEPIME 2 GM in SODIUM CHLORIDE 0.9% 100 ML IVPB STA (17:27)
[2021-06-11 17:31] LABS: Appearance,Urine Cloudy (Clear); Bacteria,Urine Rare /hpf; Bilirubin,Urine Negative (Negative); Blood,Urine Small (Negative); Color,Urine Yellow; Glucose,Urine (UA) Negative (Negative); Ketones,Urine Negative (Negative); Leukocyte Esterase,Urine Negative (Negative); Mucus,Urine Many /hpf; Nitrite,Urine Negative (Negative); PH, Urine 5.5 (5.0-8.0); Protein,Urine 1+ (Negative); RBC,Urine 8 /hpf (0-5); Specific Gravity,Urine 1.031 (1.001-1.035); Squamous Epithelial Cell,Urine 1 /hpf (0-4); Urobilinogen,Urine <2.0 mg/dL (<2.0); WBC,Urine 2 /hpf (0-5)
[2021-06-11] MEDS ORDERED: NALOXONE 0.4 MG/ML 1 ML VIAL IV PRN (17:50)
[2021-06-11] MEDS: PHENYTOIN SODIUM EXTENDED 100 MG CAP PO SCH (22:03)
[2021-06-11] MEDS: SODIUM CHLORIDE 0.9% 1,000 ML IV SCH (22:03)
[2021-06-12] MEDS ORDERED: MORPHINE SULFATE 4 MG/ML SYRINGE ONE (02:40)
[2021-06-12] MEDS ORDERED: ONDANSETRON 4 MG/2 ML VIAL ONE (02:40)
[2021-06-12] MEDS: SODIUM CHLORIDE 0.9% 1,000 ML IV SCH ×2 (06:12→20:00)
[2021-06-12 07:00] LABS: Glucose,Whole Blood 134 mg/dL (75-99)
[2021-06-12] MEDS: MORPHINE SULFATE 4 MG/ML SYRINGE IV PRN ×4 (07:40→20:01)
[2021-06-12] MEDS: PHENYTOIN SODIUM EXTENDED 100 MG CAP PO SCH ×3 (07:40→20:00)
[2021-06-12 08:21] LABS: Basophils % (A) 0 %; Eosinophils % (A) 0 %; HCT 41.3 % (34.0-46.0); HGB 13.6 gm/dL (11.4-16.0); Lymphocytes # (A) 0.7 k/uL (1.0-4.8); Lymphocytes % (A) 5 %; MCH 31.5 pg (25.0-35.0); MCV 95.5 fL (80.0-100.0); Mean Platelet Volume 8.7; Monocytes # (A) 0.9 k/uL (0-1.0); Monocytes % (A) 6 %; Neutrophils # (A) 13.2 k/uL (1.3-7.7); Neutrophils % (A) 88 %; Platelet Count 169 k/uL (150-450); RBC 4.32 m/uL (3.80-5.40); RDW 12.4 % (11.5-15.5); WBC 14.9 k/uL (3.8-10.6)
[2021-06-12 08:50] LABS: ALT 13 U/L (4-34); AST 24 U/L (14-36); African American GFR (CKD) >90 (>60 ml/min/1.73 sqM); Albumin 3.2 g/dL (3.5-5.0); Albumin/Globulin Ratio 1.3; Alkaline Phosphatase 87 U/L (38-126); Anion Gap 2 mmol/L; Blood Urea Nitrogen 6 mg/dL (7-17); Calcium 8.8 mg/dL (8.4-10.2); Carbon Dioxide 29 mmol/L (22-30); Chloride 102 mmol/L (98-107); Globulin 2.5 g/dL; Glucose 127 mg/dL (74-99); Magnesium 1.7 mg/dL (1.6-2.3); Non-African American GFR(CKD) >90 (>60 ml/min/1.73 sqM); Potassium 4.4 mmol/L (3.5-5.1); Sodium 133 mmol/L (137-145); Total Bilirubin 0.5 mg/dL (0.2-1.3); Total Protein 5.7 g/dL (6.3-8.2)
[2021-06-12] MEDS: FAMOTIDINE 20 MG/2 ML VIAL IV SCH ×2 (10:44→20:01)
[2021-06-12] MEDS: CEFEPIME 2 GM in SODIUM CHLORIDE 0.9% 100 ML IVPB SCH ×3 (10:44→23:11)
[2021-06-12] MEDS: metroNIDAZOLE-NS PMX 500 MG in SALINE 1 100ML.BAG IVPB SCH ×3 (10:44→22:09)
[2021-06-12 11:33] LABS: Glucose,Whole Blood 119 mg/dL (75-99)
--- NOTE | 2021-06-12 11:53 | P.GSCN ---
<Rekha Dumas - Last Filed: 06/12/21 13:53> History of Present Illness Consult date: 06/12/21 History of present illness: CHIEF COMPLAINT: Abdominal pain HISTORY OF PRESENT ILLNESS: This is a 71-year-old female with a history of CVA, seizure, COPD, nicotine dependence. Past surgical history includes appendectomy, tubal ligation and removal of part of her right ovary. Patient presents to the hospital with complaints of right upper quadrant pain. She reports that her symptoms started 3 days ago in the evening after eating hamburger. She admits having nausea and vomiting. She has had prior episodes of right upper quadrant pain after eating but they usually resolve on their own. Patient's pain has remained constant and she reports her pain about 11 out of 10 when she presented to the hospital. She had a computed tomography scan of the abdomen and pelvis showing a mildly dilated gallbladder suspicious for cholecystitis. White count was elevated at 20.1 and she has been mildly tachycardic. LFTs remain normal. Patient denies any fevers. Denies any change in bowel habits. She does take Plavix due to her stroke history. Her last dose of Plavix was on June 10. PAST MEDICAL HISTORY: See list. PAST SURGICAL HISTORY: See list. MEDICATIONS: See list. ALLERGIES: See list. SOCIAL HISTORY: No illicit drug use. REVIEW OF SYSTEMS: CONSTITUTIONAL: Denies fever or chills. HEENT: Denies blurred vision, vision changes, or eye pain. Denies hemoptysis CARDIOVASCULAR: Denies chest pain or pressure. RESPIRATORY: No shortness of breath. GASTROINTESTINAL: See HPI for pertinent findings HEMATOLOGIC: Denies bleeding disorders. GENITOURINARY: Denies any blood in urine or increased urinary frequency. SKIN: Denies pruitis. Denies rash. PHYSICAL EXAM: VITAL SIGNS: Reviewed GENERAL: Well-developed in no acute distress. HEENT: No sclera icterus. Extraocular movements grossly intact. Moist buccal mucosa. Head is atraumatic, normocephalic. No nasal drainage. ABDOMEN: Soft. Nondistended. Tenderness with palpation of the right upper quadrant NEUROLOGIC: Alert and oriented. Cranial nerves II through XII grossly intact. LABORATORY DATA: WBC 20.1 down to 14.9 hemoglobin 13.6 platelets 169 sodium 133 potassium 4.4 creatinine 0.41 lactic 1.4 magnesium 1.7 LFTs remain normal. Lipase normal IMAGING: Computed tomography scan and pelvis mildly dilated gallbladder suspicious for cholecystitis. Mild fat stranding at the hepatic flexure of the colon of unc ertain significance. There is mild hepatomegaly. At this chronic vascular disease. Small right adrenal mass is likely benign. ASSESSMENT: 1. Acute cholecystitis PLAN: -Check abdominal ultrasound -Okay to start clear liquids after ultrasound -Continue antibiotics -Continue IV fluids -Continue pain medication as needed -Continue antiemetics -Due to hold Plavix -Further recommendations forthcoming per surgeon Thank you for this consultation Physician Parent Educator note has been reviewed by physician. Signing provider agrees with the documented findings, assessment, and plan of care. Past Medical History Past Medical History: COPD, CVA/TIA, Pneumonia, Seizure Disorder Additional Past Medical History / Comment(s): CVA 6 years ago with right sided weakness, epilepsy History of Any Multi-Drug Resistant Organisms: None Reported Past Surgical History: Appendectomy, Tubal Ligation Additional Past Surgical History / Comment(s): part of Right ovary removed Past Anesthesia/Blood Transfusion Reactions: No Reported Reaction Additional Past Anesthesia/Blood Transfusion Reaction / Comm: Never received b lood Past Psychological History: No Psychological Hx Reported Additional Psychological History / Comment(s): Pt states she has no psychological conditions. She lives with her spouse and adult daughter. he uses no assistive device. She no longer drives-her spouse and manish take her places. She is independent. Smoking Status: Current every day smoker Past Alcohol Use History: None Reported Additional Past Alcohol Use History / Comment(s): Pt states since May 2015 she has cut down on her smoking to about 5 cigarettes a day. She is trying to quit altogether. Past Drug Use History: None Reported - Past Family History Mother Family Medical History: Respiratory Disorder Additional Family Medical History / Comment(s): Mother had pneumo's. She was a heavy smoker. She comitted suicide at 59yrs of age. Father Family Medical History: Congestive Heart Failure (CHF), Myocardial Infarction ([place]), Renal Disease Additional Family Medical History / Comment(s): Father was an alcoholic. He had CHF and 7 AK's. He had one kidney that never developed after age 2yrs. He of kidney failure. Medications and Allergies Home Medications Medication Instructions Recorded Confirmed Type Phenytoin Sodium Extended 100 mg PO TID 08/09/15 06/11/21 History [Dilantin] Clopidogrel [Plavix] 75 mg PO DAILY 12/21/16 06/11/21 History Aspirin EC [Ecotrin Low Dose] 81 mg PO DAILY 07/23/19 06/11/21 History Gabapentin [Neurontin] 100 mg PO QID 07/23/19 06/11/21 History Ascorbic Acid [Vitamin C] 1,000 mg PO DAILY 06/11/21 06/11/21 History Calcium Carb/Mag Ox/Zinc Sulf 1 tab PO DAILY 06/11/21 06/11/21 History [Ssg-Fzn-Tfnz 334-134-5 mg Tab] L.acidoph,Paracasei, B.lactis 1 cap PO DAILY 06/11/21 06/11/21 History [Probiotic] Ubidecarenone [Co Q-10] 100 mg PO DAILY 06/11/21 06/11/21 History Allergies Allergy/AdvReac Type Severity Reaction Status Date / Time Iodinated Contrast Media Allergy Anaphylaxis Verified 06/11/21 16:16 [Iodinated Contrast Media - IV Dye] Penicillins Allergy Swelling Verified 06/11/21 16:16 Surgical - Exam Vital Signs Temp Pulse Resp BP Pulse Ox 98.2 F 104 H 20 155/73 94 L 06/11/21 15:01 06/11/21 15:01 06/11/21 15:01 06/11/21 15:01 06/11/21 15:01 Results - Labs 06/12/21 07:39 06/12/21 07:39 Abnormal Lab Results - Last 24 Hours (Table) 06/11/21 06/11/21 06/11/21 Range/Units 16:06 16:06 16:06 WBC 20.1 H (3.8-10.6) k/uL Hct 46.1 H (34.0-46.0) % Neutrophils # 17.9 H (1.3-7.7) k/uL Lymphocytes # (1.0-4.8) k/uL Sodium 128 L (137-145) mmol/L Chloride 95 L (98-107) mmol/L BUN (7-17) mg/dL Creatinine 0.36 L (0.52-1.04) mg/dL Glucose 144 H (74-99) mg/dL POC Glucose (mg/dL) (75-99) mg/dL Alkaline Phosphatase 131 H (38-126) U/L Total Protein (6.3-8.2) g/dL Albumin (3.5-5.0) g/dL Urine Appearance Cloudy H (Clear) Urine Protein 1+ H (Negative) Urine Blood Small H (Negative) Urine RBC 8 H (0-5) /hpf Urine Bacteria Rare H (None) /hpf Urine Mucus Many H (None) /hpf 06/12/21 06/12/21 06/12/21 Range/Units 06:58 07:39 07:39 WBC 14.9 H (3.8-10.6) k/uL Hct (34.0-46.0) % Neutrophils # 13.2 H (1.3-7.7) k/uL Lymphocytes # 0.7 L (1.0-4.8) k/uL Sodium 133 L (137-145) mmol/L Chloride (98-107) mmol/L BUN 6 L (7-17) mg/dL Creatinine 0.41 L (0.52-1.04) mg/dL Glucose 127 H (74-99) mg/dL POC Glucose (mg/dL) 134 H (75-99) mg/dL Alkaline Phosphatase (38-126) U/L Total Protein 5.7 L (6.3-8.2) g/dL Albumin 3.2 L (3.5-5.0) g/dL Urine Appearance (Clear) Urine Protein (Negative) Urine Blood (Negative) Urine RBC (0-5) /hpf Urine Bacteria (None) /hpf Urine Mucus (None) /hpf 06/12/21 Range/Units 11:21 WBC (3.8-10.6) k/uL Hct (34.0-46.0) % Neutrophils # (1.3-7.7) k/uL Lymphocytes # (1.0-4.8) k/uL Sodium (137-145) mmol/L Chloride (98-107) mmol/L BUN (7-17) mg/dL Creatinine (0.52-1.04) mg/dL Glucose (74-99) mg/dL POC Glucose (mg/dL) 119 H (75-99) mg/dL Alkaline Phosphatase (38-126) U/L Total Protein (6.3-8.2) g/dL Albumin (3.5-5.0) g/dL Urine Appearance (Clear) Urine Protein (Negative) Urine Blood (Negative) Urine RBC (0-5) /hpf Urine Bacteria (None) /hpf Urine Mucus (None) /hpf Diabetes panel 06/11/21 06/12/21 Range/Units 16:06 07:39 Sodium 128 L 133 L (137-145) mmol/L Potassium 4.2 4.4 (3.5-5.1) mmol/L Chloride 95 L 102 (98-107) mmol/L Carbon Dioxide 26 29 (22-30) mmol/L BUN 10 6 L (7-17) mg/dL Creatinine 0.36 L 0.41 L (0.52-1.04) mg/dL Glucose 144 H 127 H (74-99) mg/dL Calcium 9.4 8.8 (8.4-10.2) mg/dL AST 26 24 (14-36) U/L ALT 16 13 (4-34) U/L Alkaline Phosphatase 131 H 87 (38-126) U/L Total Protein 6.9 5.7 L (6.3-8.2) g/dL Albumin 4.3 3.2 L (3.5-5.0) g/dL Calcium panel 06/11/21 06/12/21 Range/Units 16:06 07:39 Calcium 9.4 8.8 (8.4-10.2) mg/dL Albumin 4.3 3.2 L (3.5-5.0) g/dL Pituitary panel 06/11/21 06/12/21 Range/Units 16:06 07:39 Sodium 128 L 133 L (137-145) mmol/L Potassium 4.2 4.4 (3.5-5.1) mmol/L Chloride 95 L 102 (98-107) mmol/L Carbon Dioxide 26 29 (22-30) mmol/L BUN 10 6 L (7-17) mg/dL Creatinine 0.36 L 0.41 L (0.52-1.04) mg/dL Glucose 144 H 127 H (74-99) mg/dL Calcium 9.4 8.8 (8.4-10.2) mg/dL Adrenal panel 06/11/21 06/12/21 Range/Units 16:06 07:39 Sodium 128 L 133 L (137-145) mmol/L Potassium 4.2 4.4 (3.5-5.1) mmol/L Chloride 95 L 102 (98-107) mmol/L Carbon Dioxide 26 29 (22-30) mmol/L BUN 10 6 L (7-17) mg/dL Creatinine 0.36 L 0.41 L (0.52-1.04) mg/dL Glucose 144 H 127 H (74-99) mg/dL Calcium 9.4 8.8 (8.4-10.2) mg/dL Total Bilirubin 0.5 0.5 (0.2-1.3) mg/dL AST 26 24 (14-36) U/L ALT 16 13 (4-34) U/L Alkaline Phosphatase 131 H 87 (38-126) U/L Total Protein 6.9 5.7 L (6.3-8.2) g/dL Albumin 4.3 3.2 L (3.5-5.0) g/dL <Shay Bronson - Last Filed: 06/12/21 18:47> History of Present Illness History of present illness: As above. Patient with right upper quadrant pain. CAT scan and ultrasound reviewed. Diagnostics certainly suggest acute cholecystitis. Continue antibiotics. Hold anticoagulation. Recheck labs tomorrow. Anticipate cholecystectomy Thursday or Thursday. Surgical - Exam Vital Signs Temp Pulse Resp BP Pulse Ox 98.2 F 104 H 20 155/73 94 L 06/11/21 15:01 06/11/21 15:01 06/11/21 15:01 06/11/21 15:01 06/11/21 15:01 Results - Labs 06/12/21 07:39 06/12/21 07:39 Abnormal Lab Results - Last 24 Hours (Table) 06/12/21 06/12/21 06/12/21 Range/Units 06:58 07:39 07:39 WBC 14.9 H (3.8-10.6) k/uL Neutrophils # 13.2 H (1.3-7.7) k/uL Lymphocytes # 0.7 L (1.0-4.8) k/uL Sodium 133 L (137-145) mmol/L BUN 6 L (7-17) mg/dL Creatinine 0.41 L (0.52-1.04) mg/dL Glucose 127 H (74-99) mg/dL POC Glucose (mg/dL) 134 H (75-99) mg/dL Total Protein 5.7 L (6.3-8.2) g/dL Albumin 3.2 L (3.5-5.0) g/dL 06/12/21 Range/Units 11:21 WBC (3.8-10.6) k/uL Neutrophils # (1.3-7.7) k/uL Lymphocytes # (1.0-4.8) k/uL Sodium (137-145) mmol/L BUN (7-17) mg/dL Creatinine (0.52-1.04) mg/dL Glucose (74-99) mg/dL POC Glucose (mg/dL) 119 H (75-99) mg/dL Total Protein (6.3-8.2) g/dL Albumin (3.5-5.0) g/dL Diabetes panel 06/12/21 Range/Units 07:39 Sodium 133 L (137-145) mmol/L Potassium 4.4 (3.5-5.1) mmol/L Chloride 102 (98-107) mmol/L Carbon Dioxide 29 (22-30) mmol/L BUN 6 L (7-17) mg/dL Creatinine 0.41 L (0.52-1.04) mg/dL Glucose 127 H (74-99) mg/dL Calcium 8.8 (8.4-10.2) mg/dL AST 24 (14-36) U/L ALT 13 (4-34) U/L Alkaline Phosphatase 87 (38-126) U/L Total Protein 5.7 L (6.3-8.2) g/dL Albumin 3.2 L (3.5-5.0) g/dL Calcium panel 06/12/21 Range/Units 07:39 Calcium 8.8 (8.4-10.2) mg/dL Albumin 3.2 L (3.5-5.0) g/dL Pituitary panel 06/12/21 Range/Units 07:39 Sodium 133 L (137-145) mmol/L Potassium 4.4 (3.5-5.1) mmol/L Chloride 102 (98-107) mmol/L Carbon Dioxide 29 (22-30) mmol/L BUN 6 L (7-17) mg/dL Creatinine 0.41 L (0.52-1.04) mg/dL Glucose 127 H (74-99) mg/dL Calcium 8.8 (8.4-10.2) mg/dL Adrenal panel 06/12/21 Range/Units 07:39 Sodium 133 L (137-145) mmol/L Potassium 4.4 (3.5-5.1) mmol/L Chloride 102 (98-107) mmol/L Carbon Dioxide 29 (22-30) mmol/L BUN 6 L (7-17) mg/dL Creatinine 0.41 L (0.52-1.04) mg/dL Glucose 127 H (74-99) mg/dL Calcium 8.8 (8.4-10.2) mg/dL Total Bilirubin 0.5 (0.2-1.3) mg/dL AST 24 (14-36) U/L ALT 13 (4-34) U/L Alkaline Phosphatase 87 (38-126) U/L Total Protein 5.7 L (6.3-8.2) g/dL Albumin 3.2 L (3.5-5.0) g/dL
--- NOTE | 2021-06-12 16:01 | US ---
EXAMINATION TYPE: US gallbladder DATE OF EXAM: 06/12/2021 COMPARISON: NONE CLINICAL HISTORY: ruq pain. ruq pain EXAM MEASUREMENTS: Liver Length: 17 cm Gallbladder Wall: .5 cm CBD: .4 cm Right Kidney: 10.3 x 4.6 x 4.9 cm Pancreas: Obscured by bowel gas Liver: wnl Gallbladder: Multiple stones seen. Thickened wall. Evidence for sonographic Almeida's sign: No CBD: wnl Right Kidney: wnl IMPRESSION: 1. Cholelithiasis. Gallbladder wall thickening is diffusely present. Correlate for acute cholecystiti s.
--- NOTE | 2021-06-12 17:10 | P.HPIM ---
History of Present Illness This is a pleasant 71 years old female with past medical history of COPD, CVA/TIA with right hemiparesis, seizure disorder, cigarette smoker Presents because of right upper quadrant abdominal pain of one-day duration, rated as 10/10 by patient on admission no better controlled with pain medication, felt like burning associated with vomiting twice. Pain is nonradiating. She has tried shoulder pain but this is chronic as per patient with no history of recent trauma Vitas looks stable, she is mildly tachycardic with heart rate 98-109. Patient is afebrile. Leukocytosis of 20.1 down to 14.9 K. CBC, liver enzymes and basic metabolic panel are unremarkable. Lipase is normal. Urinalysis is not suspicious of infection. EKG showed sinus tachycardia and [address]-T changes and QTC of 401 CT of the abdomen and pelvis showing moderately dilated gallbladder suspicious for cholecystitis. Mild past stranding of the hepatic flexure of the colon of uncertain significance. There is mild hepatomegaly. Atherosclerotic vascular disease. Small right adrenal mass is likely benign Review of Systems CONSTITUTIONAL: No fever, no malaise, no fatigue. HEENT: No recent visual problems or hearing problems. Denied any sore throat. CARDIOVASCULAR: No orthopnea, PND, no palpitations, no syncope. PULMONARY: No shortness of breath, no cough, no hemoptysis. GASTROINTESTINAL: No diarrhea, no nausea, Normoactive bowel sounds. NEUROLOGICAL: No headaches, no weakness, no numbness. HEMATOLOGICAL: Denies any bleeding or petechiae. GENITOURINARY: Denies any burning micturition, frequency, or urgency. MUSCULOSKELETAL/RHEUMATOLOGICAL: Denies any joint pain, swelling, or any muscle pain. ENDOCRINE: Denies any polyuria or polydipsia. Past Medical History Past Medical History: COPD, CVA/TIA, Pneumonia, Seizure Disorder Additional Past Medical History / Comment(s): CVA 6 years ago with right sided weakness, epilepsy History of Any Multi-Drug Resistant Organisms: None Reported Past Surgical History: Appendectomy, Tubal Ligation Additional Past Surgical History / Comment(s): part of Right ovary removed Past Anesthesia/Blood Transfusion Reactions: No Reported Reaction Additional Past Anesthesia/Blood Transfusion Reaction / Comment(s): Never received blood Past Psychological History: No Psychological Hx Reported Additional Psychological History / Comment(s): Pt states she has no psychological conditions. She lives with her spouse and adult daughter. he uses no assistive device. She no longer drives-her spouse and manish take her places. She is independent. Smoking Status: Current every day smoker Past Alcohol Use History: None Reported Additional Past Alcohol Use History / Comment(s): Pt states since May 2015 she has cut down on her smoking to about 5 cigarettes a day. She is trying to quit altogether. Past Drug Use History: None Reported - Past Family History Mother Family Medical History: Respiratory Disorder Additional Family Medical History / Comment(s): Mother had pneumo's. She was a heavy smoker. She comitted suicide at 59yrs of age. Father Family Medical History: Congestive Heart Failure (CHF), Myocardial Infarction (CA), Renal Disease Additional Family Medical History / Comment(s): Father was an alcoholic. He had CHF and 7 CA's. He had one kidney that never developed after age 2yrs. He of kidney failure. Medications and Allergies Home Medications Medication Instructions Recorded Confirmed Type Phenytoin Sodium Extended 100 mg PO TID 08/09/15 06/11/21 History [Dilantin] Clopidogrel [Plavix] 75 mg PO DAILY 12/21/16 06/11/21 History Aspirin EC [Ecotrin Low Dose] 81 mg PO DAILY 07/23/19 06/11/21 History Gabapentin [Neurontin] 100 mg PO QID 07/23/19 06/11/21 History Ascorbic Acid [Vitamin C] 1,000 mg PO DAILY 06/11/21 06/11/21 History Calcium Carb/Mag Ox/Zinc Sulf 1 tab PO DAILY 06/11/21 06/11/21 History [Hig-Vgg-Klsx 334-134-5 mg Tab] L.acidoph,Paracasei, B.lactis 1 cap PO DAILY 06/11/21 06/11/21 History [Probiotic] Ubidecarenone [Co Q-10] 100 mg PO DAILY 06/11/21 06/11/21 History Allergies Allergy/AdvReac Type Severity Reaction Status Date / Time Iodinated Contrast Media Allergy Anaphylaxis Verified 06/11/21 16:16 [Iodinated Contrast Media - IV Dye] Penicillins Allergy Swelling Verified 06/11/21 16:16 Physical Exam Vitals: Vital Signs Temp Pulse Pulse Resp BP BP Pulse Ox 06/12/21 07:41 98.6 F 98 16 105/62 96 06/11/21 18:18 97.9 F 109 H 18 149/70 94 L 06/11/21 15:01 98.2 F 104 H 20 155/73 94 L Intake and Output 06/11/21 06/12/21 06/12/21 22:59 06:59 14:59 Other: # Voids 1 Weight 56.245 kg 56.245 kg GENERAL: The patient is alert and oriented x3, not in any acute distress. Well developed, well nourished. HEENT: Pupils are round and equally reacting to light. EOMI. No scleral icterus. No conjunctival pallor. Normocephalic, atraumatic. No pharyngeal erythema. No thyromegaly. CARDIOVASCULAR: S1 and S2 present. No murmurs, rubs, or gallops. PULMONARY: Chest is clear to auscultation, no wheezing or crackles. -ABDOMEN: Soft, RUQ tenderness with positive Almeida sign, nondistended, normoactive bowel sounds. No palpable organomegaly. MUSCULOSKELETAL: No joint swelling or deformity. EXTREMITIES: No cyanosis, clubbing, or pedal edema. NEUROLOGICAL: Gross neurological examination did not reveal any focal deficits. SKIN: No rashes. No petechiae Results CBC & Chem 7: 06/12/21 07:39 06/12/21 07:39 Labs: Abnormal Lab Results - Last 24 Hours (Table) 06/11/21 06/11/21 06/11/21 Range/Units 16:06 16:06 16:06 WBC 20.1 H (3.8-10.6) k/uL Hct 46.1 H (34.0-46.0) % Neutrophils # 17.9 H (1.3-7.7) k/uL Lymphocytes # (1.0-4.8) k/uL Sodium 128 L (137-145) mmol/L Chloride 95 L (98-107) mmol/L BUN (7-17) mg/dL Creatinine 0.36 L (0.52-1.04) mg/dL Glucose 144 H (74-99) mg/dL POC Glucose (mg/dL) (75-99) mg/dL Alkaline Phosphatase 131 H (38-126) U/L Total Protein (6.3-8.2) g/dL Albumin (3.5-5.0) g/dL Urine Appearance Cloudy H (Clear) Urine Protein 1+ H (Negative) Urine Blood Small H (Negative) Urine RBC 8 H (0-5) /hpf Urine Bacteria Rare H (None) /hpf Urine Mucus Many H (None) /hpf 06/12/21 06/12/21 06/12/21 Range/Units 06:58 07:39 07:39 WBC 14.9 H (3.8-10.6) k/uL Hct (34.0-46.0) % Neutrophils # 13.2 H (1.3-7.7) k/uL Lymphocytes # 0.7 L (1.0-4.8) k/uL Sodium 133 L (137-145) mmol/L Chloride (98-107) mmol/L BUN 6 L (7-17) mg/dL Creatinine 0.41 L (0.52-1.04) mg/dL Glucose 127 H (74-99) mg/dL POC Glucose (mg/dL) 134 H (75-99) mg/dL Alkaline Phosphatase (38-126) U/L Total Protein 5.7 L (6.3-8.2) g/dL Albumin 3.2 L (3.5-5.0) g/dL Urine Appearance (Clear) Urine Protein (Negative) Urine Blood (Negative) Urine RBC (0-5) /hpf Urine Bacteria (None) /hpf Urine Mucus (None) /hpf Thrombosis Risk Factor Assmnt - Choose All That Apply Any of the Below Risk Factors Present?: No Other Risk Factors: Yes Each Risk Factor Represents 2 Points: Age 61-74 years Other congenital or acquired thrombophilia - If yes, enter type in comment: No Thrombosis Risk Factor Assessment Total Risk Factor Score: 2 Thrombosis Risk Factor Assessment Level: Low Risk Assessment and Plan Assessment: Acute cholecystitis Nicotine dependence Small right adrenal mass is likely benign, patient was informed with recommendation to follow up with her PCP and she agrees COPD, no acute exacerbation History of stroke with right hemiparesis Of seizure disorder Plan: This is a pleasant 71 years old female presents with acute cholecystitis. Surgical consult Nothing by mouth Bowel rest and IV fluids. Continue with antibiotics, currently with cefepime and Flagyl Labs and medication were reviewed.. Continue same treatment. Continue with symptomatic treatment. Resume home medication. Monitor lytes and vitals. DVT and GI prophylaxis. Further recommendations depends on the clinical course of the patient DVT prophylaxis: Subcutaneous heparin GI Prophylaxis: Pepcid Prognosis is guarded
[2021-06-13] MEDS: metroNIDAZOLE-NS PMX 500 MG in SALINE 1 100ML.BAG IVPB SCH ×3 (06:08→23:25)
[2021-06-13] MEDS: CEFEPIME 2 GM in SODIUM CHLORIDE 0.9% 100 ML IVPB SCH ×3 (07:33→23:25)
[2021-06-13] MEDS: HEPARIN SODIUM,PORCINE/PF 5,000 UNIT/0.5 ML SYRINGE SQ SCH ×2 (07:34→21:06)
[2021-06-13] MEDS: SODIUM CHLORIDE 0.9% 1,000 ML IV SCH ×2 (07:34→23:25)
[2021-06-13] MEDS: PHENYTOIN SODIUM EXTENDED 100 MG CAP PO SCH ×3 (07:34→21:06)
[2021-06-13] MEDS: FAMOTIDINE 20 MG/2 ML VIAL IV SCH ×2 (07:34→21:06)
[2021-06-13] MEDS: MORPHINE SULFATE 4 MG/ML SYRINGE IV PRN ×3 (07:36→18:05)
[2021-06-13 09:13] LABS: HGB 13.6 g/dL (12.0-15.0); MCHC 31.6 g/dL (32.0-37.0); MCV 97.9 fL (80.0-97.0); Mean Platelet Volume 11.5 fL (9.5-12.2); Platelet Count 153 X 10*3/uL (140-440); RBC 4.39 X 10*6/uL (4.10-5.20); RDW 12.6 % (11.5-14.5); WBC 18.46 X 10*3/uL (4.50-10.00)
[2021-06-13] MEDS: KETOROLAC 15 MG/ML 1 ML VIAL IVP PRN ×2 (10:07→16:26)
[2021-06-13 11:15] LABS: Basophils # (A) 0.04 X 10*3/uL (0.00-0.10); Basophils % (A) 0.2 %; Eosinophils # (A) 0.01 X 10*3/uL (0.04-0.35); Eosinophils % (A) 0.1 %; Lymphocytes % (A) 6.5 %; Monocytes # (A) 1.58 X 10*3/uL (0.20-1.00); Monocytes % (A) 8.6 %; Neutrophils # (A) 15.55 X 10*3/uL (1.80-7.70); Neutrophils % (A) 84.2 %
--- NOTE | 2021-06-13 11:36 | P.PN ---
<Rekha Dumas - Last Filed: 06/13/21 14:04> Subjective Progress Note Date: 06/13/21 CHIEF COMPLAINT: Abdominal pain HISTORY OF PRESENT ILLNESS: Patient reports that her abdominal pain is about the same. She denies any nausea or vomiting. She has been requiring the morphine. But she reports that it is affecting her memory. She denies any nausea or vomiting. He she is on a clear liquid diet and has not eaten much. Afebrile. Heart rate 106 WBC 18.46 amylase and CMP pending gallbladder ultrasound showing cholelithiasis. Gallbladder wall thickening. Correlate for acute cholecystitis. PHYSICAL EXAM: VITAL SIGNS: Reviewed. GENERAL: Well-developed in no acute distress. HEENT: No sclera icterus. Extraocular movements grossly intact. Moist buccal mucosa. Head is atraumatic, normocephalic. ABDOMEN: Soft. Nondistended. Tenderness right upper quadrant and lower abdomen NEUROLOGIC: Alert and oriented. Cranial nerves II through XII grossly intact. ASSESSMENT: 1. Acute cholecystitis PLAN: -Continue clear liquid diet -Continue antibiotics -Continue to hold Plavix -Possible laparoscopic cholecystectomy Thursday or Thursday. -Further recommendations forthcoming per surgeon -Add Toradol for pain control Physician Knitting Machine Tender note has been reviewed by physician. Signing provider agrees with the documented findings, assessment, and plan of care. Objective - Vital Signs Vital signs: Vital Signs Temp 98.5 F 06/13/21 07:10 Pulse 97 06/13/21 07:10 Resp 17 06/13/21 07:10 BP 120/74 06/13/21 07:10 Pulse Ox 95 06/13/21 07:10 Intake & Output 06/12/21 06/13/21 06/13/21 18:59 06:59 18:59 Intake Total 480 480 Balance 480 480 Weight 56.245 kg Intake: Oral 480 480 Other: Voiding Method Toilet # Voids 4 4 - Labs CBC & Chem 7: 06/13/21 05:36 06/12/21 07:39 Labs: Abnormal Lab Results - Last 24 Hours (Table) 06/12/21 06/13/21 Range/Units 11:21 05:36 WBC 18.46 H (4.50-10.00) X 10*3/uL MCV 97.9 H (80.0-97.0) fL MCHC 31.6 L (32.0-37.0) g/dL Immature Gran # 0.08 H (0.00-0.04) X 10*3/uL Neutrophils # 15.55 H (1.80-7.70) X 10*3/uL Monocytes # 1.58 H (0.20-1.00) X 10*3/uL Eosinophils # 0.01 L (0.04-0.35) X 10*3/uL POC Glucose (mg/dL) 119 H (75-99) mg/dL <Shay Bronson - Last Filed: 06/13/21 14:15> Subjective As above. Patient still having pain and had some episodes of vomiting. White blood cell count remains elevated. CMP and amylase are pending. Spoke with the patient and her by phone. We'll schedule for laparoscopic, possible open cholecystectomy tomorrow. Risks of bleeding, infection, bile leak, bile duct injury, retained common bile duct stone, trocar injury, conversion to an open procedure, hernia, anesthesia related complications were reviewed. The patient understands and wishes to proceed. Objective - Vital Signs Vital signs: Vital Signs Temp 98.7 F 06/13/21 13:18 Pulse 93 06/13/21 13:18 Resp 17 06/13/21 13:18 BP 125/73 06/13/21 13:18 Pulse Ox 90 L 06/13/21 13:18 Intake & Output 06/12/21 06/13/21 06/13/21 18:59 06:59 18:59 Intake Total 480 960 Balance 480 960 Weight 56.245 kg Intake: Oral 480 960 Other: Voiding Method Toilet # Voids 4 4 - Labs CBC & Chem 7: 06/13/21 05:36 06/12/21 07:39 Labs: Abnormal Lab Results - Last 24 Hours (Table) 06/13/21 Range/Units 05:36 WBC 18.46 H (4.50-10.00) X 10*3/uL MCV 97.9 H (80.0-97.0) fL MCHC 31.6 L (32.0-37.0) g/dL Immature Gran # 0.08 H (0.00-0.04) X 10*3/uL Neutrophils # 15.55 H (1.80-7.70) X 10*3/uL Monocytes # 1.58 H (0.20-1.00) X 10*3/uL Eosinophils # 0.01 L (0.04-0.35) X 10*3/uL
[2021-06-13] MEDS: ONDANSETRON 4 MG/2 ML VIAL IVP PRN ×2 (12:22→21:06)
[2021-06-13 19:55] LABS: African American GFR (CKD) 112.1 (60.0-200.0); Albumin 3.5 g/dL (3.80-4.90); Albumin/Globulin Ratio 1.52 (1.60-3.17); Anion Gap 16.1 mmol/L (4.00-12.00); Calcium 8.8 mg/dL (8.7-10.3); Carbon Dioxide 18.9 mmol/L (21.6-31.8); Globulin 2.3 g/dL (1.6-3.3); Non-African American GFR(CKD) 96.7 (60.0-200.0); Total Bilirubin 0.5 mg/dL (0.2-1.2); Total Protein 5.8 g/dL (6.2-8.2)
--- NOTE | 2021-06-13 19:57 | P.PN ---
Subjective This is a pleasant 71 years old female with past medical history of COPD, CVA/TIA with right hemiparesis, seizure disorder, cigarette smoker Presents because of right upper quadrant abdominal pain of one-day duration, rated as 10/10 by patient on admission no better controlled with pain medication, felt like burning associated with vomiting twice. Pain is nonradiating. She has tried shoulder pain but this is chronic as per patient with no history of recent trauma Vitas looks stable, she is mildly tachycardic with heart rate 98-109. Patient is afebrile. Leukocytosis of 20.1 down to 14.9 K. CBC, liver enzymes and basic metabolic panel are unremarkable. Lipase is normal. Urinalysis is not suspicious of infection. EKG showed sinus tachycardia and [address]-T changes and QTC of 401 CT of the abdomen and pelvis showing moderately dilated gallbladder suspicious for cholecystitis. Mild past stranding of the hepatic flexure of the colon of uncertain significance. There is mild hepatomegaly. Atherosclerotic vascular d isease. Small right adrenal mass is likely benign 06/13/2021 patient is with acute cholecystitis and right upper quadrant abdominal pain and tenderness, however lap kwesi is postponed till Thursday or Thursday because patient was on Plavix which is on hold now to decrease risk of bleeding. Vitals are stable and patient is afebrile. She remains with leukocytosis which is slightly increased to 18.4 , rest of labs are stable. Patient remains on cefepime, Flagyl and normal saline at 75 mL/h Objective - Vital Signs Vital signs: Vital Signs Temp 98.7 F 06/13/21 13:18 Pulse 93 06/13/21 13:18 Resp 17 06/13/21 13:18 BP 125/73 06/13/21 13:18 Pulse Ox 90 L 06/13/21 13:18 Intake & Output 06/12/21 06/13/21 06/13/21 18:59 06:59 18:59 Intake Total 480 960 Balance 480 960 Weight 56.245 kg Intake: Oral 480 960 Other: Voiding Method Toilet # Voids 4 4 - Exam GENERAL: The patient is alert and oriented x3, not in any acute distress. Well developed, well nourished. HEENT: Pupils are round and equally reacting to light. EOMI. No scleral icterus. No conjunctival pallor. Normocephalic, atraumatic. No pharyngeal erythema. No thyromegaly. CARDIOVASCULAR: S1 and S2 present. No murmurs, rubs, or gallops. PULMONARY: Chest is clear to auscultation, no wheezing or crackles. -ABDOMEN: Soft, RUQ tenderness with positive Almeida sign, nondistended, normoactive bowel sounds. No palpable organomegaly. MUSCULOSKELETAL: No joint swelling or deformity. EXTREMITIES: No cyanosis, clubbing, or pedal edema. NEUROLOGICAL: Gross neurological examination did not reveal any focal deficits. SKIN: No rashes. No petechiae - Labs CBC & Chem 7: 06/13/21 05:36 06/12/21 07:39 Labs: Abnormal Lab Results - Last 24 Hours (Table) 06/13/21 Range/Units 05:36 WBC 18.46 H (4.50-10.00) X 10*3/uL MCV 97.9 H (80.0-97.0) fL MCHC 31.6 L (32.0-37.0) g/dL Immature Gran # 0.08 H (0.00-0.04) X 10*3/uL Neutrophils # 15.55 H (1.80-7.70) X 10*3/uL Monocytes # 1.58 H (0.20-1.00) X 10*3/uL Eosinophils # 0.01 L (0.04-0.35) X 10*3/uL Assessment and Plan Assessment: Acute cholecystitis Nicotine dependence Small right adrenal mass is likely benign, patient was informed with recommendation to follow up with her PCP and she agrees COPD, no acute exacerbation History of stroke with right hemiparesis Of seizure disorder Plan: This is a pleasant 71 years old female presents with acute cholecystitis. Surgical consult on the case On a clear liquid diet Continue with IV fluids IV fluids. Continue with antibiotics, currently with cefepime and Flagyl Laparoscopic cholecystectomy on Thursday or Thursday Labs and medication were reviewed.. Continue same treatment. Continue with symptomatic treatment. Resume home medication. Monitor lytes and vitals. DVT and GI prophylaxis. Further recommendations depends on the clinical course of the patient DVT prophylaxis: Subcutaneous heparin GI Prophylaxis: Pepcid Prognosis is guarded
[2021-06-14] MEDS: MORPHINE SULFATE 4 MG/ML SYRINGE IV PRN ×2 (00:23→11:36)
[2021-06-14 05:33] LABS: Prothrombin Time 10.3 sec (9.0-12.0)
[2021-06-14 06:09] LABS: ALT 11 U/L (4-34); AST 23 U/L (14-36); African American GFR (CKD) >90 (>60 ml/min/1.73 sqM); Albumin 2.5 g/dL (3.5-5.0); Alkaline Phosphatase 84 U/L (38-126); Anion Gap 3 mmol/L; Blood Urea Nitrogen 13 mg/dL (7-17); Calcium 8.4 mg/dL (8.4-10.2); Carbon Dioxide 26 mmol/L (22-30); Chloride 108 mmol/L (98-107); Globulin 2.4 g/dL; Glucose 86 mg/dL (74-99); Non-African American GFR(CKD) >90 (>60 ml/min/1.73 sqM); Potassium 4.3 mmol/L (3.5-5.1); Sodium 137 mmol/L (137-145); Total Bilirubin 0.3 mg/dL (0.2-1.3); Total Protein 4.9 g/dL (6.3-8.2)
[2021-06-14 08:06] LABS: Basophils % (A) 0 %; Eosinophils # (A) 0.1 k/uL (0-0.7); Eosinophils % (A) 1 %; HCT 37.6 % (34.0-46.0); HGB 12.3 gm/dL (11.4-16.0); Lymphocytes % (A) 11 %; MCH 32.1 pg (25.0-35.0); MCHC 32.7 g/dL (31.0-37.0); MCV 97.9 fL (80.0-100.0); Mean Platelet Volume 9.3; Monocytes # (A) 0.6 k/uL (0-1.0); Monocytes % (A) 6 %; Neutrophils # (A) 7.6 k/uL (1.3-7.7); Neutrophils % (A) 81 %; Platelet Count 145 k/uL (150-450); RBC 3.83 m/uL (3.80-5.40); RDW 12.4 % (11.5-15.5); WBC 9.4 k/uL (3.8-10.6)
[2021-06-14] MEDS: ONDANSETRON 4 MG/2 ML VIAL IVP PRN (08:13)
[2021-06-14] MEDS: KETOROLAC 15 MG/ML 1 ML VIAL IVP PRN ×2 (08:13→15:15)
[2021-06-14] MEDS: PHENYTOIN SODIUM EXTENDED 100 MG CAP PO SCH ×2 (08:14→15:14)
[2021-06-14] MEDS: FAMOTIDINE 20 MG/2 ML VIAL IV SCH (08:14)
[2021-06-14] MEDS: metroNIDAZOLE-NS PMX 500 MG in SALINE 1 100ML.BAG IVPB SCH ×2 (08:15→15:14)
[2021-06-14] MEDS: CEFEPIME 2 GM in SODIUM CHLORIDE 0.9% 100 ML IVPB SCH ×2 (08:15→15:14)
[2021-06-14] MEDS: HEPARIN SODIUM,PORCINE/PF 5,000 UNIT/0.5 ML SYRINGE SQ SCH (08:32)
[2021-06-14] MEDS: SODIUM CHLORIDE 0.9% 1,000 ML IV SCH ×2 (15:13→22:09)
[2021-06-14] MEDS ORDERED: LIDOCAINE 1% INJ 10MG/ML (20 ML MDV) ONE (20:15)
[2021-06-14] MEDS ORDERED: fentaNYL (PF) 50 MCG/ML 2 ML AMP ONE (20:15)
[2021-06-14] MEDS ORDERED: MIDAZOLAM 2 MG/2 ML VIAL ONE (20:15)
[2021-06-14] MEDS ORDERED: PROPOFOL 10 MG/ML 20 ML VIAL IV ONE (20:15)
[2021-06-14] MEDS ORDERED: SUCCINYLCHOLINE CHLORIDE 100 MG/5 ML SYR IV ONE (20:15)
[2021-06-14] MEDS ORDERED: KETOROLAC 15 MG/ML 1 ML VIAL ONE (20:15)
[2021-06-14] MEDS ORDERED: GLYCOPYRROLATE 0.2 MG/ML 2 ML VIAL ONE (20:15)
[2021-06-14] MEDS ORDERED: ROCURONIUM 10 MG/ML (5 ML VIAL) IV ONE (20:15)
[2021-06-14] MEDS ORDERED: NEOSTIGMINE 1 MG/ML 10 ML VIAL ONE (20:15)
[2021-06-14] MEDS ORDERED: ONDANSETRON 4 MG/2 ML VIAL ONE (20:15)
[2021-06-14] MEDS ORDERED: SODIUM CHLORIDE 0.9% 1,000 ML IV ONE (20:15)
[2021-06-14] MEDS ORDERED: DEXAMETHASONE SOD PHOSPHATE 10 MG/ML 1 ML VIAL ONE (20:15)
[2021-06-14] MEDS ORDERED: BUPIVACAINE (PF) 0.25% 30 ML VIAL SQ ONE (21:00)
--- NOTE | 2021-06-14 21:57 | P.OP ---
Date of Procedure: 06/14/21 Procedure(s) Performed: PREOPERATIVE DIAGNOSIS: Acute cholecystitis POSTOPERATIVE DIAGNOSIS: Same PROCEDURE: Laparoscopic cholecystectomy SURGEON: Audie EBL: 50 mL ANESTHESIA: Gen. COMPLICATIONS: None OPERATIVE PROCEDURE: The patient was brought and placed on the operating room table in the supine position. The patient was placed under general anesthesia at that time. The abdomen was prepped and draped in the usual sterile fashion. A small vertical infraumbilical incision was made. The fascia was grasped with the Pat forceps. The fascia was retracted anteriorly. The Veress needle was advanced into the peritoneal cavity. The saline drop test was abnormal. At that time I switched to an optical 5 mm trocar and this was advanced into the right upper quadrant under direct visualization. The umbilicus was inspected. The patient had some adhesions to the omentum there and I suspect this is what was giving us difficulty with the Veress needle. A 5 mm trocar was placed there under direct visualization. A 12 mm trocar in the epigastrium and a lateral 5 mm upper quadrant trocar was then placed. The patient's gallbladder was significantly distended and acutely inflamed. I was able to mobilize this using a combination of blunt dissection and the LigaSure device. The gallbladder was retracted superiorly and laterally. The peritoneum overlying the infundibulum was bluntly dissected. The patient's cystic duct was visualized. The junction between the cystic duct common and hepatic duct was identified. The critical view of safety was achieved after blunt dissection. The cystic duct was edematous. It was ligated after the placement of a 2-0 Ethibond stitch tied down using the timeout device and a 12 mm clip on the patient's side as well as a 12 mm clip on the specimen side. The cystic artery was identified and clipped as well. A small vessel was seen along the gallbladder fossa and clipped as well. The gallbladder was then removed from the liver bed using electrocautery and the LigaSure device. The gallbladder was then removed from the epigastric trocar site with an Endo Catch bag. The gallbladder fossa was irrigated with saline. There was no evidence of any bleeding or biliary drainage seen. A drain was placed in the gallbladder fossa. This exited through the lateral 5 mm trocar site and was sutured to the skin using a 3-0 silk stitch. The fascia at the 12 millimeter site was closed using a short running 0 Vicryl stitch. The trochars were then removed. The skin at all 3 sites was closed using a 4-0 Monocryl stitch. Skin glue was utilized on the incision sites. At the end of this procedure the sponge and needle counts were correct. DISPOSITION: Stable to the recovery room
--- NOTE | 2021-06-14 22:44 | P.PN ---
Subjective This is a pleasant 71 years old female with past medical history of COPD, CVA/TIA with right hemiparesis, seizure disorder, cigarette smoker Presents because of right upper quadrant abdominal pain of one-day duration, rated as 10/10 by patient on admission no better controlled with pain medication, felt like burning associated with vomiting twice. Pain is nonradiating. She has tried shoulder pain but this is chronic as per patient with no history of recent trauma Vitas looks stable, she is mildly tachycardic with heart rate 98-109. Patient is afebrile. Leukocytosis of 20.1 down to 14.9 K. CBC, liver enzymes and basic metabolic panel are unremarkable. Lipase is normal. Urinalysis is not suspicious of infection. EKG showed sinus tachycardia and [address]-T changes and QTC of 401 CT of the abdomen and pelvis showing moderately dilated gallbladder suspicious for cholecystitis. Mild past stranding of the hepatic flexure of the colon of uncertain significance. There is mild hepatomegaly. Atherosclerotic vascular d isease. Small right adrenal mass is likely benign 06/13/2021 patient is with acute cholecystitis and right upper quadrant abdominal pain and tenderness, however lap kwesi is postponed till Thursday or Thursday because patient was on Plavix which is on hold now to decrease risk of bleeding. Vitals are stable and patient is afebrile. She remains with leukocytosis which is slightly increased to 18.4 , rest of labs are stable. Patient remains on cefepime, Flagyl and normal saline at 75 mL/h 06/14/2021 Patient with the same abdominal pain. She is hemodynamically stable. Leukocytosis back to normal. Planned for lap cholecystectomy today Objective - Vital Signs Vital signs: Vital Signs Temp 98 F 06/14/21 13:32 Pulse 92 06/14/21 13:32 Resp 17 06/14/21 13:32 BP 124/71 06/14/21 13:32 Pulse Ox 90 L 06/14/21 13:32 Intake & Output 06/13/21 06/14/21 06/14/21 18:59 06:59 18:59 Intake Total 960 900 Balance 960 900 Weight 56.245 kg Intake: Intake, IV Titration 900 Amount Sodium Chloride 0.9% 1, 900 000 ml @ 75 mls/hr IV . [id number] [facility], [facility] Rx#:[id number] Oral 960 Other: Voiding Method Toilet Toilet # Voids 2 - Exam GENERAL: The patient is alert and oriented x3, not in any acute distress. Well developed, well nourished. HEENT: Pupils are round and equally reacting to light. EOMI. No scleral icterus. No conjunctival pallor. Normocephalic, atraumatic. No pharyngeal erythema. No thyromegaly. CARDIOVASCULAR: S1 and S2 present. No murmurs, rubs, or gallops. PULMONARY: Chest is clear to auscultation, no wheezing or crackles. -ABDOMEN: Soft, RUQ tenderness with positive Almeida sign, nondistended, normoactive bowel sounds. No palpable organomegaly. MUSCULOSKELETAL: No joint swelling or deformity. EXTREMITIES: No cyanosis, clubbing, or pedal edema. NEUROLOGICAL: Gross neurological examination did not reveal any focal deficits. SKIN: No rashes. No petechiae - Labs CBC & Chem 7: 06/14/21 07:14 06/14/21 05:06 Labs: Abnormal Lab Results - Last 24 Hours (Table) 06/13/21 06/14/21 06/14/21 Range/Units 05:36 05:06 07:14 Plt Count 145 L (150-450) k/uL Chloride 108 H (98-107) mmol/L Carbon Dioxide 18.9 L (21.6-31.8) mmol/L Anion Gap 16.10 H (4.00-12.00) mmol/L BUN 8.0 L (9.0-27.0) mg/dL Creatinine 0.5 L 0.35 L (0.6-1.5) mg/dL Total Protein 5.8 L 4.9 L (6.2-8.2) g/dL Albumin 3.50 L 2.5 L (3.80-4.90) g/dL Albumin/Globulin Ratio 1.52 L (1.60-3.17) g/dL Amylase 22 L (23-121) U/L Assessment and Plan Assessment: Acute cholecystitis Nicotine dependence Small right adrenal mass is likely benign, patient was informed with recommendation to follow up with her PCP and she agrees COPD, no acute exacerbation History of stroke with right hemiparesis Of seizure disorder Plan: This is a pleasant 71 years old female presents with acute cholecystitis. Surgical consult on the case On a clear liquid diet Continue with IV fluids IV fluids. Continue with antibiotics, currently with cefepime and Flagyl Laparoscopic cholecystectomy on Thursday or Thursday Labs and medication were reviewed.. Continue same treatment. Continue with symptomatic treatment. Resume home medication. Monitor lytes and vitals. DVT and GI prophylaxis. Further recommendations depends on the clinical course of the patient DVT prophylaxis: Subcutaneous heparin GI Prophylaxis: Pepcid Prognosis is guarded
[2021-06-15] MEDS: HEPARIN SODIUM,PORCINE/PF 5,000 UNIT/0.5 ML SYRINGE SQ SCH ×3 (00:12→20:59)
[2021-06-15] MEDS: PHENYTOIN SODIUM EXTENDED 100 MG CAP PO SCH ×4 (00:16→21:02)
[2021-06-15] MEDS: metroNIDAZOLE-NS PMX 500 MG in SALINE 1 100ML.BAG IVPB SCH ×4 (00:16→23:02)
[2021-06-15] MEDS: FAMOTIDINE 20 MG/2 ML VIAL IV SCH ×3 (00:16→20:58)
[2021-06-15] MEDS: CEFEPIME 2 GM in SODIUM CHLORIDE 0.9% 100 ML IVPB SCH ×4 (01:46→23:02)
[2021-06-15] MEDS: MORPHINE SULFATE 4 MG/ML SYRINGE IV PRN ×3 (02:20→16:53)
[2021-06-15] MEDS: KETOROLAC 15 MG/ML 1 ML VIAL IVP PRN ×2 (06:02→19:14)
[2021-06-15] MEDS: ACETAMINOPHEN TAB 500 MG TAB PO PRN (07:54)
--- NOTE | 2021-06-15 10:44 | P.PN ---
Subjective Progress Note Date: 06/15/21 Principal diagnosis: Acute cholecystitis Patient doing fairly well today. Her pain is improved. HANNAH drain is serosanguineous. Labs pending. She is afebrile. Objective - Vital Signs Vital signs: Vital Signs Temp 98.2 F 06/15/21 08:00 Pulse 87 06/15/21 08:00 Resp 17 06/15/21 08:00 BP 125/65 06/15/21 08:00 Pulse Ox 95 06/15/21 08:00 Intake & Output 06/14/21 06/15/21 06/15/21 18:59 06:59 18:59 Intake Total 1620 Output Total 640 Balance 980 Weight 56.245 kg Intake: IV 820 Intake, IV Titration 800 Amount Cefepime 2 gm In Sodium 100 Chloride 0.9% 100 ml @ 25 mls/hr IVPB Q8HR [facility] Rx# :[id number] Sodium Chloride 0.9% 1, 600 000 ml @ 75 mls/hr IV . [id number] [facility] Rx#:[id number] PMX 500 100 mg In Saline 1 100ml.bag @ 100 mls/hr IVPB Q8HR@ 0700,1500,2300 [facility] Rx#: [id number] Output: Drainage 90 Abdomen 90 Urine 500 Estimated Blood Loss 50 Other: Voiding Method Toilet Toilet Toilet # Voids 2 1 - Exam Abdomen: Soft, mild tenderness, incisions clean and dry, HANNAH serosanguineous - Labs CBC & Chem 7: 06/14/21 07:14 06/14/21 05:06 Assessment and Plan (1) Acute cholecystitis Narrative/Plan: Patient doing pretty well this morning. Continue advancing diet. Continue pain control. Recheck labs tomorrow. Possible discharge tomorrow. Current Visit: Yes Status: Acute Code(s): K81.0 - ACUTE CHOLECYSTITIS SNOMED Code(s): 41344323
[2021-06-15 11:53] LABS: Basophils # (A) 0.03 X 10*3/uL (0.00-0.10); Basophils % (A) 0.3 %; Eosinophils # (A) 0.01 X 10*3/uL (0.04-0.35); Eosinophils % (A) 0.1 %; HCT 38.8 % (37.2-46.3); HGB 12.2 g/dL (12.0-15.0); Lymphocytes # (A) 0.91 X 10*3/uL (0.90-5.00); Lymphocytes % (A) 8.6 %; MCH 31.1 pg (27.0-32.0); MCHC 31.4 g/dL (32.0-37.0); Mean Platelet Volume 11.8 fL (9.5-12.2); Monocytes # (A) 1.09 X 10*3/uL (0.20-1.00); Monocytes % (A) 10.3 %; Neutrophils # (A) 8.56 X 10*3/uL (1.80-7.70); Neutrophils % (A) 80.4 %; Platelet Count 164 X 10*3/uL (140-440); RBC 3.92 X 10*6/uL (4.10-5.20); RDW 12.5 % (11.5-14.5); WBC 10.63 X 10*3/uL (4.50-10.00)
[2021-06-15] MEDS ORDERED: SODIUM CHLORIDE 0.9% 500 ML 500 ML IV ONE (13:14)
[2021-06-15] MEDS: SODIUM CHLORIDE 0.9% 1,000 ML IV SCH (14:55)
[2021-06-15 16:32] LABS: African American GFR (CKD) 105.5 (60.0-200.0); Albumin 3.1 g/dL (3.80-4.90); Albumin/Globulin Ratio 1.48 (1.60-3.17); Anion Gap 11.3 mmol/L (4.00-12.00); BUN/Creat Ratio 23.33 Ratio (12.00-20.00); Calcium 8.2 mg/dL (8.7-10.3); Carbon Dioxide 23.7 mmol/L (21.6-31.8); Globulin 2.1 g/dL (1.6-3.3); Non-African American GFR(CKD) 91.1 (60.0-200.0); Potassium 4.3 mmol/L (3.5-5.5); Total Bilirubin 0.3 mg/dL (0.2-1.2); Total Protein 5.2 g/dL (6.2-8.2)
--- NOTE | 2021-06-15 20:37 | XR ---
EXAMINATION TYPE: XR chest 1V DATE OF EXAM: 06/15/2021 COMPARISON: 06/11/2021 HISTORY: Short of breath TECHNIQUE: FINDINGS: Heart size is normal. There is mild blunting right costophrenic angle. There is no gross he art failure. There are no hilar masses. Thoracic aorta is atheromatous. There is flattening of the di aphragm. There are chest leads. IMPRESSION: COPD. There is a new right pleural effusion compared to recent exam. No obvious heart maritza lure.
[2021-06-15] MEDS: METOPROLOL TARTRATE 25 MG TAB PO SCH (20:58)
[2021-06-15] MEDS ORDERED: FUROSEMIDE 10 MG/ML 4 ML VIAL IV STA (21:02)
[2021-06-15] MEDS ORDERED: methylPREDNISolone SOD SUCCI 125 MG/2 ML VIAL IV STA (21:24)
--- NOTE | 2021-06-15 21:32 | P.PN ---
Subjective This is a pleasant 71 years old female with past medical history of COPD, CVA/TIA with right hemiparesis, seizure disorder, cigarette smoker Presents because of right upper quadrant abdominal pain of one-day duration, rated as 10/10 by patient on admission no better controlled with pain medication, felt like burning associated with vomiting twice. Pain is nonradiating. She has tried shoulder pain but this is chronic as per patient with no history of recent trauma Vitas looks stable, she is mildly tachycardic with heart rate 98-109. Patient is afebrile. Leukocytosis of 20.1 down to 14.9 K. CBC, liver enzymes and basic metabolic panel are unremarkable. Lipase is normal. Urinalysis is not suspicious of infection. EKG showed sinus tachycardia and [address]-T changes and QTC of 401 CT of the abdomen and pelvis showing moderately dilated gallbladder suspicious for cholecystitis. Mild past stranding of the hepatic flexure of the colon of uncertain significance. There is mild hepatomegaly. Atherosclerotic vascular d isease. Small right adrenal mass is likely benign 06/13/2021 patient is with acute cholecystitis and right upper quadrant abdominal pain and tenderness, however lap kwesi is postponed till Thursday or Thursday because patient was on Plavix which is on hold now to decrease risk of bleeding. Vitals are stable and patient is afebrile. She remains with leukocytosis which is slightly increased to 18.4 , rest of labs are stable. Patient remains on cefepime, Flagyl and normal saline at 75 mL/h 06/14/2021 Patient with the same abdominal pain. She is hemodynamically stable. Leukocytosis back to normal. Planned for lap cholecystectomy today 06/15/2021 Patient was complaining of from some expected pain and tenderness at the surgical site. She is a status post laparoscopic cholecystectomy today is postoperative day #1. She was started on diet However patient started becoming tachycardic through the day and night and went up to 150 at time and was fluctuating. Also patient was mildly hypoxic with oxygen saturation in the low 90s related also she was still dyspneic. Repeat chest x-ray from today showed right pleural effusion, some increased congestion when I looked at the chest x-ray. And COPD IV fluid was stopped, 1 dose of Lasix and 1 dose of salmeterol was provided. Also metoprolol is given. Patient also on Toradol received 1 dose today. We will check d-dimer and if positive we will consider VQ scan. Patient is already on DVT prophylaxis and getting it today Patient the meantime kept on cefepime and Flagyl Surgical team on the case Review of systems CONSTITUTIONAL: No fever, no malaise, no fatigue. HEENT: No recent visual problems or hearing problems. Denied any sore throat. CARDIOVASCULAR: No orthopnea, PND, no palpitations, no syncope. PULMONARY: No chest wall tenderness, no hemoptysis. GASTROINTESTINAL: No diarrhea, no nausea, no vomiting, no abdominal pain. Normoactive bowel sounds. NEUROLOGICAL: No headaches, no weakness, no numbness. Active Medications Generic Name Dose Route Start Last Admin Trade Name Freq PRN Reason Stop Dose Admin Acetaminophen 500 mg 06/14/21 21:51 06/15/21 07:54 Acetaminophen Tab 500 Mg Tab PO 500 mg Q4HR PRN Administration Fever and/ or Pain Famotidine 20 mg 06/12/21 09:00 06/15/21 20:58 Famotidine 20 Mg/2 Ml Vial IV 20 mg Q12HR CRISTY Administration Heparin Sodium (Porcine) 5,000 unit 06/13/21 09:00 06/15/21 20:59 Heparin Sodium,Porcine/Pf 5,000 Unit/0.5 Ml Syringe SQ 5,000 unit Q12HR CRISTY Administration Cefepime HCl 2 gm/ Sodium 100 mls @ 25 mls/hr 06/12/21 09:15 06/15/21 16:51 Chloride IVPB 25 mls/hr Q8HR CRISTY Administration Metronidazole 500 mg/ IV 100 mls @ 100 mls/hr 06/12/21 09:30 06/15/21 14:54 Solution IVPB 100 mls/hr Q8HR@0700,1500,2300 CRISTY Administration Ketorolac Tromethamine 15 mg 06/13/21 09:24 06/15/21 19:14 Ketorolac 15 Mg/Ml 1 Ml Vial IVP 06/16/21 09:25 15 mg Q6HR PRN Administration Pain Metoprolol Tartrate 25 mg 06/15/21 20:00 06/15/21 20:58 Metoprolol Tartrate 25 Mg Tab PO 25 mg BID CRISTY Administration Morphine Sulfate 4 mg 06/11/21 17:50 06/15/21 16:53 Morphine Sulfate 4 Mg/Ml Syringe IV 4 mg Q4HR PRN Administration Severe Pain Naloxone HCl 0.2 mg 06/11/21 17:50 Naloxone 0.4 Mg/Ml 1 Ml Vial IV Q2M PRN Opioid Reversal Ondansetron HCl 4 mg 06/11/21 17:50 06/14/21 08:13 Ondansetron 4 Mg/2 Ml Vial IVP 4 mg Q8HR PRN Administration Nausea And Vomiting Phenytoin Sodium 100 mg 06/11/21 22:00 06/15/21 21:02 Phenytoin Sodium Extended 100 Mg Cap PO 100 mg TID CRISTY Administration Objective - Vital Signs Vital signs: Vital Signs Temp 98.0 F 06/15/21 13:25 Pulse 93 06/15/21 13:25 Resp 18 06/15/21 13:25 BP 133/73 06/15/21 13:25 Pulse Ox 94 L 06/15/21 13:25 Intake & Output 06/14/21 06/15/21 06/15/21 18:59 06:59 18:59 Intake Total 1620 Output Total 640 Balance 980 Weight 56.245 kg Intake: IV 820 Intake, IV Titration 800 Amount Cefepime 2 gm In Sodium 100 Chloride 0.9% 100 ml @ 25 mls/hr IVPB Q8HR [facility] Rx# :[id number] Sodium Chloride 0.9% 1, 600 000 ml @ 75 mls/hr IV . [id number] [facility] Rx#:[id number] metroNIDAZOLE-NS PMX 500 100 mg In Saline 1 100ml.bag @ 100 mls/hr IVPB Q8HR@ 0700,1500,2300 [facility] Rx#: [id number] Output: Drainage 90 Abdomen 90 Urine 500 Estimated Blood Loss 50 Other: Voiding Method Toilet Toilet Toilet # Voids 2 1 - Exam GENERAL: The patient is alert and oriented x3, not in any acute distress. Well developed, well nourished. HEENT: Pupils are round and equally reacting to light. EOMI. No scleral icterus. No conjunctival pallor. Normocephalic, atraumatic. No pharyngeal erythema. No thyromegaly. CARDIOVASCULAR: S1 and S2 present. No murmurs, rubs, or gallops. PULMONARY: Chest is clear to auscultation, no wheezing or crackles. -ABDOMEN: Soft, RUQ tenderness with positive Almeida sign, nondistended, normoactive bowel sounds. No palpable organomegaly. MUSCULOSKELETAL: No joint swelling or deformity. EXTREMITIES: No cyanosis, clubbing, or pedal edema. NEUROLOGICAL: Gross neurological examination did not reveal any focal deficits. SKIN: No rashes. No petechiae - Labs CBC & Chem 7: 06/15/21 07:04 06/15/21 07:09 Labs: Abnormal Lab Results - Last 24 Hours (Table) 06/15/21 Range/Units 07:04 WBC 10.63 H (4.50-10.00) X 10*3/uL RBC 3.92 L (4.10-5.20) X 10*6/uL MCV 99.0 H (80.0-97.0) fL MCHC 31.4 L (32.0-37.0) g/dL Neutrophils # 8.56 H (1.80-7.70) X 10*3/uL Monocytes # 1.09 H (0.20-1.00) X 10*3/uL Eosinophils # 0.01 L (0.04-0.35) X 10*3/uL Assessment and Plan Assessment: Acute cholecystitis, status post laparoscopic cholecystectomy on 06/14 Mild pulmonary congestion with tachycardia, secondary to IV fluids which were stopped Nicotine dependence Small right adrenal mass is likely benign, patient was informed with recommendation to follow up with her PCP and she agrees COPD, mild postoperative acute exacerbation History of stroke with right hemiparesis Of seizure disorder Plan: This is a pleasant 71 years old female presents with acute cholecystitis. Surgical consult on the case On a low-fat diet Discontinue IV fluids and 1 dose of IV Lasix 1 dose I IV steroids No suspicion for PE most likely patient tachycardia and dyspnea is a due to COPD/mild CHF. If d-dimer positive will consider VQ scan Continue with antibiotics, currently with cefepime and Flagyl Labs and medication were reviewed.. Continue same treatment. Continue with symptomatic treatment. Resume home medication. Monitor lytes and vitals. DVT and GI prophylaxis. Further recommendations depends on the clinical course of the patient DVT prophylaxis: Subcutaneous heparin GI Prophylaxis: Pepcid Prognosis is guarded
[2021-06-16] MEDS ORDERED: HEPARIN SODIUM,PORCINE/PF 5,000 UNIT/0.5 ML SYRINGE SQ STA (01:18)
[2021-06-16] MEDS ORDERED: HEPARIN SODIUM 1,000 UN/ML (10ML VL) IV PRN ×2 (01:38→10:33)
[2021-06-16] MEDS ORDERED: HEPARIN SODIUM 1,000 UN/ML (10ML VL) IV ONE (01:38)
[2021-06-16] MEDS ORDERED: HEPARIN SOD,PORK IN 0.45% NACL 25,000 UNIT in 0.45% NACL 1 250ML.BAG IV SCH ×2 (01:45→10:45)
[2021-06-16 02:06] LABS: INR 0.9 (<1.2); Prothrombin Time 9.7 sec (9.0-12.0)
[2021-06-16 04:23] LABS: Basophils % (A) 0 %; Eosinophils % (A) 0 %; HCT 41.1 % (34.0-46.0); HGB 13.6 gm/dL (11.4-16.0); Lymphocytes # (A) 0.9 k/uL (1.0-4.8); Lymphocytes % (A) 10 %; MCH 31.8 pg (25.0-35.0); MCHC 33.1 g/dL (31.0-37.0); MCV 96.1 fL (80.0-100.0); Mean Platelet Volume 8.7; Monocytes # (A) 0.4 k/uL (0-1.0); Monocytes % (A) 5 %; Neutrophils # (A) 7.3 k/uL (1.3-7.7); Neutrophils % (A) 83 %; Platelet Count 212 k/uL (150-450); RBC 4.28 m/uL (3.80-5.40); RDW 12.2 % (11.5-15.5); WBC 8.8 k/uL (3.8-10.6)
[2021-06-16] MEDS: ALPRAZolam 0.5 MG TAB PO PRN ×2 (06:46→20:03)
[2021-06-16] MEDS: METOPROLOL TARTRATE 25 MG TAB PO SCH ×2 (06:46→20:02)
[2021-06-16] MEDS: PHENYTOIN SODIUM EXTENDED 100 MG CAP PO SCH ×3 (06:47→20:02)
[2021-06-16] MEDS: FAMOTIDINE 20 MG/2 ML VIAL IV SCH ×2 (06:47→20:02)
[2021-06-16] MEDS: metroNIDAZOLE-NS PMX 500 MG in SALINE 1 100ML.BAG IVPB SCH ×3 (06:50→23:09)
[2021-06-16] MEDS: ACETAMINOPHEN TAB 500 MG TAB PO PRN ×3 (06:55→20:03)
[2021-06-16 07:56] LABS: Basophils % (A) 0 %; Eosinophils % (A) 1 %; HCT 40.5 % (34.0-46.0); HGB 13.5 gm/dL (11.4-16.0); Lymphocytes # (A) 1.5 k/uL (1.0-4.8); Lymphocytes % (A) 17 %; MCH 31.9 pg (25.0-35.0); MCHC 33.2 g/dL (31.0-37.0); MCV 96.1 fL (80.0-100.0); Mean Platelet Volume 8.5; Monocytes # (A) 0.7 k/uL (0-1.0); Monocytes % (A) 7 %; Neutrophils # (A) 6.7 k/uL (1.3-7.7); Neutrophils % (A) 73 %; Platelet Count 235 k/uL (150-450); RBC 4.22 m/uL (3.80-5.40); RDW 12.2 % (11.5-15.5); WBC 9.1 k/uL (3.8-10.6)
[2021-06-16] MEDS ORDERED: HEPARIN SODIUM,PORCINE/PF 5,000 UNIT/0.5 ML SYRINGE SQ SCH (08:00)
[2021-06-16] MEDS: CEFEPIME 2 GM in SODIUM CHLORIDE 0.9% 100 ML IVPB SCH ×3 (09:31→23:09)
--- NOTE | 2021-06-16 09:42 | NM ---
EXAMINATION TYPE: NM pul vent and perfuse DATE OF EXAM: 06/16/2021 COMPARISON: 06/15/2021 HISTORY: Shortness of breath TECHNIQUE: Utilizing inhalation of 30.4 mCi Tc 99m DTPA aerosol and intravenous injection of 5.2 mCi of Tc 99m MAA, ventilation and perfusion images are acquired post injection in multiple projections. FINDINGS: There is limited uptake and ventilation images. There are numerous matched perfusion and ventilation defects. No sizable mismatched defects noted. IMPRESSION: 1. Limited exam due to reduced ventilation uptake. However there are numerous perfusion and ventilati on matched defects. Findings felt to be compatible with a intermediate to high probability for pulmon lora embolus.
--- NOTE | 2021-06-16 10:39 | P.PN ---
Subjective Progress Note Date: 06/16/21 Principal diagnosis: Acute cholecystitis Patient had episodes last night of tachycardia and some mild tachypnea. VQ scan was performed showing possible PE. Patient now on heparin drip. Otherwise she feels well. Denies pain. HANNAH is serosanguineous. Objective - Vital Signs Vital signs: Vital Signs Temp 97.7 F 06/16/21 08:00 Pulse 89 06/16/21 08:00 Resp 16 06/16/21 08:00 BP 112/68 06/16/21 08:00 Pulse Ox 93 L 06/16/21 08:00 Intake & Output 06/15/21 06/16/21 06/16/21 18:59 06:59 18:59 Intake Total 53.992 Output Total 30 Balance -30 53.992 Intake: Intake, IV Titration 53.992 Amount Heparin Sod,Pork in 0.45% 53.992 NaCl 25,000 unit In 0.45 % NaCl 1 250ml.bag @ 12 UNITS/KG/HR 6.749 mls/hr IV .Q24H CRISTY Rx#: [id number] Output: Drainage 30 Abdomen 30 Other: Voiding Method Toilet Toilet Toilet # Voids 5 5 # Bowel Movements 1 - Exam Abdomen: Soft, nondistended, mild tenderness, incisions clean and dry - Labs CBC & Chem 7: 06/16/21 07:33 06/15/21 07:09 Labs: Abnormal Lab Results - Last 24 Hours (Table) 06/15/21 06/15/21 06/15/21 Range/Units 07:04 07:09 21:01 WBC 10.63 H (4.50-10.00) X 10*3/uL RBC 3.92 L (4.10-5.20) X 10*6/uL MCV 99.0 H (80.0-97.0) fL MCHC 31.4 L (32.0-37.0) g/dL Neutrophils # 8.56 H (1.80-7.70) X 10*3/uL Lymphocytes # (1.0-4.8) k/uL Monocytes # 1.09 H (0.20-1.00) X 10*3/uL Eosinophils # 0.01 L (0.04-0.35) X 10*3/uL D-Dimer 2.66 H (<0.60) mg/L FEU BUN/Creatinine Ratio 23.33 H (12.00-20.00) Ratio Calcium 8.2 L (8.7-10.3) mg/dL AST 38 H (13-35) U/L Total Protein 5.2 L (6.2-8.2) g/dL Albumin 3.10 L (3.80-4.90) g/dL Albumin/Globulin Ratio 1.48 L (1.60-3.17) g/dL 06/16/21 Range/Units 03:48 WBC (4.50-10.00) X 10*3/uL RBC (4.10-5.20) X 10*6/uL MCV (80.0-97.0) fL MCHC (32.0-37.0) g/dL Neutrophils # (1.80-7.70) X 10*3/uL Lymphocytes # 0.9 L (1.0-4.8) k/uL Monocytes # (0.20-1.00) X 10*3/uL Eosinophils # (0.04-0.35) X 10*3/uL D-Dimer (<0.60) mg/L FEU BUN/Creatinine Ratio (12.00-20.00) Ratio Calcium (8.7-10.3) mg/dL AST (13-35) U/L Total Protein (6.2-8.2) g/dL Albumin (3.80-4.90) g/dL Albumin/Globulin Ratio (1.60-3.17) g/dL Assessment and Plan (1) Acute cholecystitis Narrative/Plan: Patient with episodes of tachycardia last night. VQ scan suggests possible pulmonary embolism. Continue anticoagulation. Continue low-fat diet. Current Visit: Yes Status: Acute Code(s): K81.0 - ACUTE CHOLECYSTITIS SNOMED Code(s): 34368602
--- NOTE | 2021-06-16 10:39 | P.PN ---
Subjective This is a pleasant 71 years old female with past medical history of COPD, CVA/TIA with right hemiparesis, seizure disorder, cigarette smoker Presents because of right upper quadrant abdominal pain of one-day duration, rated as 10/10 by patient on admission no better controlled with pain medication, felt like burning associated with vomiting twice. Pain is nonradiating. She has tried shoulder pain but this is chronic as per patient with no history of recent trauma Vitas looks stable, she is mildly tachycardic with heart rate 98-109. Patient is afebrile. Leukocytosis of 20.1 down to 14.9 K. CBC, liver enzymes and basic metabolic panel are unremarkable. Lipase is normal. Urinalysis is not suspicious of infection. EKG showed sinus tachycardia and [address]-T changes and QTC of 401 CT of the abdomen and pelvis showing moderately dilated gallbladder suspicious for cholecystitis. Mild past stranding of the hepatic flexure of the colon of uncertain significance. There is mild hepatomegaly. Atherosclerotic vascular d isease. Small right adrenal mass is likely benign 06/13/2021 patient is with acute cholecystitis and right upper quadrant abdominal pain and tenderness, however lap kwesi is postponed till Thursday or Thursday because patient was on Plavix which is on hold now to decrease risk of bleeding. Vitals are stable and patient is afebrile. She remains with leukocytosis which is slightly increased to 18.4 , rest of labs are stable. Patient remains on cefepime, Flagyl and normal saline at 75 mL/h 06/14/2021 Patient with the same abdominal pain. She is hemodynamically stable. Leukocytosis back to normal. Planned for lap cholecystectomy today 06/15/2021 Patient was complaining of from some expected pain and tenderness at the surgical site. She is a status post laparoscopic cholecystectomy today is postoperative day #1. She was started on diet However patient started becoming tachycardic through the day and night and went up to 150 at time and was fluctuating. Also patient was mildly hypoxic with oxygen saturation in the low 90s related also she was still dyspneic. Repeat chest x-ray from today showed right pleural effusion, some increased congestion when I looked at the chest x-ray. And COPD IV fluid was stopped, 1 dose of Lasix and 1 dose of salmeterol was provided. Also metoprolol is given. Patient also on Toradol received 1 dose today. We will check d-dimer and if positive we will consider VQ scan. Patient is already on DVT prophylaxis and getting it today Patient the meantime kept on cefepime and Flagyl Surgical team on the case 06/16/2021 yesterday during the day patient heart rate was 90 to 120 And during the night increased to 150 at times, during the night also she was a little more dyspneic than usual Chest x-ray was showing COPD and little bit more congestion with some right pleural effusion of small amount, but does not improved much with 1 dose of IV L asix and Solu-Medrol 125 mg 1. Also heart rate was still elevated despite start patient on metoprolol 25 mg. During the night her heart rate jumped 126. Ordered d-dimer which was elevated 2.6, because of this we started the patient on low intensity heparin drip and ordered a VQ scan which call him back in to me to high intensity this morning, heparin drip to high intensity and consult pulmonary service. Patient yesterday did not want to do the CTA of the chest because of history of contrast ALLERGY many years ago causing her to cardiac rash and her throat closes. Also patient was on Toradol which was stopped, we'll check and her creatinine today which is still pending. Her creatinine increased yesterday 0.3 up to 0.6 which is still within the reference range. No episodes of hypotension This morning patient was still short of breath especially with exertion, no chest pain no coughing or hemoptysis. Patient was on heparin DVT prophylaxis since admission and held only during the surgery. Patient denies any leg pain or swelling or induration. She is a status post laparoscopic cholecystectomy today postop day #2. Her is low risk for bleeding, however surgery team or informed about the patient of this and is currently on heparin drip. Wiliam pain is improving, patient feels hungry and wants to eat, patient on diet now but she does not have bowel movements. But a lot of gas. Her HANNAH drain showing only scant amount of serosanguineous secretions, no active bleeding. Abdomen looks soft with minimal tenderness at the surgical site which is expected. Review of systems CONSTITUTIONAL: No fever, no malaise, no fatigue. HEENT: No recent visual problems or hearing problems. Denied any sore throat. CARDIOVASCULAR: PND, no palpitations, no syncope. PULMONARY: No chest wall tenderness, no hemoptysis. GASTROINTESTINAL: No diarrhea, no nausea, no vomiting, no abdominal pain. Normoactive bowel sounds. NEUROLOGICAL: No headaches, no weakness, no numbness. Active Medications Generic Name Dose Route Start Last Admin Trade Name Freq PRN Reason Stop Dose Admin Acetaminophen 500 mg 06/14/21 21:51 06/16/21 06:55 Acetaminophen Tab 500 Mg Tab PO 500 mg Q4HR PRN Administration Fever and/ or Pain Alprazolam 0.5 mg 06/16/21 06:30 06/16/21 06:46 Alprazolam 0.5 Mg Tab PO 0.5 mg BID PRN Administration Anxiety Famotidine 20 mg 06/12/21 09:00 06/16/21 06:47 Famotidine 20 Mg/2 Ml Vial IV 20 mg Q12HR CRISTY Administration Heparin Sodium (Porcine) 0 unit 06/16/21 01:38 06/16/21 10:14 Heparin Sodium 1,000 Un/Ml (10ml Vl) IV 2,800 unit PER PROTOCOL PRN Administration Low PTT Protocol Cefepime HCl 2 gm/ Sodium 100 mls @ 25 mls/hr 06/12/21 09:15 06/16/21 09:31 Chloride IVPB 25 mls/hr Q8HR CRISTY Administration Metronidazole 500 mg/ IV 100 mls @ 100 mls/hr 06/12/21 09:30 06/16/21 06:50 Solution IVPB 100 mls/hr Q8HR@0700,1500,2300 CRISTY Administration Heparin Sodium/Sodium Chloride 250 mls @ 6.749 mls/hr 06/16/21 01:45 06/16/21 10:13 25,000 unit/ Sodium Chloride IV 15 units/kg/hr .Q24H CRISTY 8.437 mls/hr Titration Protocol 12 UNITS/KG/HR Metoprolol Tartrate 25 mg 06/15/21 20:00 06/16/21 06:46 Metoprolol Tartrate 25 Mg Tab PO 25 mg BID CRISTY Administration Morphine Sulfate 4 mg 06/11/21 17:50 06/15/21 16:53 Morphine Sulfate 4 Mg/Ml Syringe IV 4 mg Q4HR PRN Administration Severe Pain Naloxone HCl 0.2 mg 06/11/21 17:50 Naloxone 0.4 Mg/Ml 1 Ml Vial IV Q2M PRN Opioid Reversal Ondansetron HCl 4 mg 06/11/21 17:50 06/14/21 08:13 Ondansetron 4 Mg/2 Ml Vial IVP 4 mg Q8HR PRN Administration Nausea And Vomiting Phenytoin Sodium 100 mg 06/11/21 22:00 06/16/21 06:47 Phenytoin Sodium Extended 100 Mg Cap PO 100 mg TID CRISTY Administration Objective - Vital Signs Vital signs: Vital Signs Temp 97.7 F 06/16/21 08:00 Pulse 89 06/16/21 08:00 Resp 16 06/16/21 08:00 BP 112/68 06/16/21 08:00 Pulse Ox 93 L 06/16/21 08:00 Intake & Output 06/15/21 06/16/21 06/16/21 18:59 06:59 18:59 Intake Total 53.992 Output Total 30 Balance -30 53.992 Intake: Intake, IV Titration 53.992 Amount Heparin Sod,Pork in 0.45% 53.992 NaCl 25,000 unit In 0.45 % NaCl 1 250ml.bag @ 12 UNITS/KG/HR 6.749 mls/hr IV .Q24H [facility] Rx#: [id number] Output: Drainage 30 Abdomen 30 Other: Voiding Method Toilet Toilet Toilet # Voids 5 5 # Bowel Movements 1 - Exam GENERAL: The patient is alert and oriented x3, not in any acute distress. Well developed, well nourished. HEENT: Pupils are round and equally reacting to light. EOMI. No scleral icterus. No conjunctival pallor. Normocephalic, atraumatic. No pharyngeal erythema. No thyromegaly. CARDIOVASCULAR: S1 and S2 present. No murmurs, rubs, or gallops. -PULMONARY: Chest is clear to auscultation, no wheezing or crackles. Patient tachypneic And orthopnic -ABDOMEN: Soft, mild tenderness at the surgical site, abdomen soft with no rebound tenderness, nondistended, normoactive bowel sounds. No palpable organomegaly. MUSCULOSKELETAL: No joint swelling or deformity. EXTREMITIES: No cyanosis, clubbing, or pedal edema. NEUROLOGICAL: Gross neurological examination did not reveal any focal deficits. SKIN: No rashes. No petechiae - Labs CBC & Chem 7: 06/16/21 07:33 06/15/21 07:09 Labs: Abnormal Lab Results - Last 24 Hours (Table) 06/15/21 06/15/21 06/15/21 Range/Units 07:04 07:09 21:01 WBC 10.63 H (4.50-10.00) X 10*3/uL RBC 3.92 L (4.10-5.20) X 10*6/uL MCV 99.0 H (80.0-97.0) fL MCHC 31.4 L (32.0-37.0) g/dL Neutrophils # 8.56 H (1.80-7.70) X 10*3/uL Lymphocytes # (1.0-4.8) k/uL Monocytes # 1.09 H (0.20-1.00) X 10*3/uL Eosinophils # 0.01 L (0.04-0.35) X 10*3/uL D-Dimer 2.66 H (<0.60) mg/L FEU BUN/Creatinine Ratio 23.33 H (12.00-20.00) Ratio Calcium 8.2 L (8.7-10.3) mg/dL AST 38 H (13-35) U/L Total Protein 5.2 L (6.2-8.2) g/dL Albumin 3.10 L (3.80-4.90) g/dL Albumin/Globulin Ratio 1.48 L (1.60-3.17) g/dL 06/16/21 Range/Units 03:48 WBC (4.50-10.00) X 10*3/uL RBC (4.10-5.20) X 10*6/uL MCV (80.0-97.0) fL MCHC (32.0-37.0) g/dL Neutrophils # (1.80-7.70) X 10*3/uL Lymphocytes # 0.9 L (1.0-4.8) k/uL Monocytes # (0.20-1.00) X 10*3/uL Eosinophils # (0.04-0.35) X 10*3/uL D-Dimer (<0.60) mg/L FEU BUN/Creatinine Ratio (12.00-20.00) Ratio Calcium (8.7-10.3) mg/dL AST (13-35) U/L Total Protein (6.2-8.2) g/dL Albumin (3.80-4.90) g/dL Albumin/Globulin Ratio (1.60-3.17) g/dL Assessment and Plan Assessment: Acute cholecystitis, status post laparoscopic cholecystectomy on 06/14 Intermediate to high probability for pulmonary embolism per VQ scan Nicotine dependence Small right adrenal mass is likely benign, patient was informed with recommendation to follow up with her PCP and she agrees COPD, mild postoperative acute exacerbation History of stroke with right hemiparesis Of seizure disorder Plan: This is a pleasant 71 years old female presents with acute cholecystitis. Surgical consult on the case On a low-fat diet Discontinue IV fluids Continue with heparin drip and increased to high intensity. Consult pulmonary services Check ultrasound of the legs and richardson for Continue with antibiotics, currently with cefepime and Flagyl Labs and medication were reviewed.. Continue same treatment. Continue with symptomatic treatment. Resume home medication. Monitor lytes and vitals. DVT and GI prophylaxis. Further recommendations depends on the clinical course of the patient DVT prophylaxis: heparin drip GI Prophylaxis: Pepcid Prognosis is guarded Patient discussed her problems and management plan and she agrees. Also I explained to her risk of bleeding with heparin drip including but not limited to bleeding into the brain and she verbalized understanding and acceptance
[2021-06-16 10:54] LABS: African American GFR (CKD) 112.1 (60.0-200.0); Albumin 3.3 g/dL (3.80-4.90); Albumin/Globulin Ratio 1.5 (1.60-3.17); Anion Gap 9.9 mmol/L (4.00-12.00); Calcium 8.4 mg/dL (8.7-10.3); Carbon Dioxide 24.1 mmol/L (21.6-31.8); Globulin 2.2 g/dL (1.6-3.3); Non-African American GFR(CKD) 96.7 (60.0-200.0); Potassium 3.8 mmol/L (3.5-5.5); Total Bilirubin 0.3 mg/dL (0.2-1.2); Total Protein 5.5 g/dL (6.2-8.2)
--- NOTE | 2021-06-16 11:18 | US ---
EXAMINATION TYPE: US venous doppler duplex LE DATE OF EXAM: 06/16/2021 11:11 AM COMPARISON: NONE CLINICAL HISTORY: Rule out DVT. Probable PE SIDE PERFORMED: Bilateral TECHNIQUE: The lower extremity deep venous system is examined utilizing real time linear array sonog nikhil with graded compression, doppler sonography and color-flow sonography. VESSELS IMAGED: Common Femoral Vein Deep Femoral Vein Greater Saphenous Vein * Femoral Vein Popliteal Vein Small Saphenous Vein * Proximal Calf Veins (* superficial vessels) Right Leg: Negative for DVT Left Leg: Negative for DVT IMPRESSION: Grayscale, color doppler, spectral doppler imaging performed of the deep veins of the lo wer extremities. There is normal flow, compressibility, vascular waveforms.
[2021-06-16] MEDS ORDERED: PREGABALIN 50 MG CAP PO SCH (11:30)
--- NOTE | 2021-06-16 12:37 | P.CNPUL ---
History of Present Illness Consult date: 06/16/21 Reason for consult: dyspnea History of present illness: I was consulted on this 69-year-old female patient with a possibility of pulmonary embolism. The patient is known to have COPD. The patient is known to have previous history of CVA with some right-sided weakness. Apparently she had TPA back in 2014 for a CVA and she had bleeding complication. Her memory is not the best. She has history of seizure disorder. She came into the hospital because of abdominal pain and nausea and emesis. She had leukocytosis. CAT scan of the abdomen and pelvis showed moderately dilated gallbladder suspicious for cholecystitis. There was mild hepatomegaly. The patient was diagnosed having acute cholecystitis. The patient was started on IV antibiotics. Gen. surgery was consulted. She was given a combination of cefepime and Flagyl. Following that, the patient underwent a laparoscopic cholecystectomy on 06/14/2021. Postop, the patient was having some difficulties in breathing. Chest x-ray showed air COPD with some mild pulmonary vascular congestion. She was given a dose of Lasix. She was given Solu-Medrol. She was given breathing treatments of albuterol updrafts. Later on, she was given a d-dimer that came back at 2.6. The patient was given a VQ scan that came back multiple matching filling defect and this was called to be of an intermediate probability. CT angiogram was not done as the patient has significant ALLERGIES hours contrast material. Doppler of the lower extremity negative. The patient is currently on room air oxygen with a pulse ox of 95%. She is on IV heparin. No swelling in the lower extremities. No calf pain or swelling in the lower extremities. She is postop day #2 for now. She has adequate pain control. HANNAH drain is putting out serous extremities material at the surgical wound site. Review of Systems Constitutional: Reports fatigue, Reports weakness Eyes: denies as per HPI, denies blurred vision, denies bulging eye, denies decreased vision, denies diplopia, denies discharge, denies dry eye, denies irritation, denies itching, denies pain, denies photophobia, denies loss of peripheral vision, denies loss of vision, denies tunnel vision/blind spots Ears: deny: decreased hearing, ear discharge, earache, tinnitus Ears, nose, mouth and throat: Reports as per HPI Breasts: absent: as per HPI, change in shape, gynecomastia, masses, nipple discharge, pain, skin changes, swelling Cardiovascular: Reports decreased exercise tolerance, Reports dyspnea on exertion Respiratory: Reports cough, Reports dyspnea Gastrointestinal: Reports abdominal pain, Reports nausea, Reports vomiting Genitourinary: Reports as per HPI Menstruation: Reports as per HPI Musculoskeletal: Reports as per HPI Musculoskeletal: absent: ankle pain, ankle stiffness, ankle swelling Integumentary: Reports as per HPI Neurological: Reports weakness Psychiatric: Reports as per HPI Endocrine: Reports as per HPI Hematologic/Lymphatic: Reports as per HPI Allergic/Immunologic: Reports as per HPI Past Medical History Past Medical History: COPD, CVA/TIA, Pneumonia, Seizure Disorder Additional Past Medical History / Comment(s): CVA 6 years ago with right sided weakness, epilepsy History of Any Multi-Drug Resistant Organisms: None Reported Past Surgical History: Appendectomy, Tubal Ligation Additional Past Surgical History / Comment(s): part of Right ovary removed Past Anesthesia/Blood Transfusion Reactions: No Reported Reaction Additional Past Anesthesia/Blood Transfusion Reaction / Comment(s): Never received blood Past Psychological History: No Psychological Hx Reported Additional Psychological History / Comment(s): Pt states she has no psychological conditions. She lives with her spouse and adult daughter. he uses no assistive device. She no longer drives-her spouse and manish take her places. She is independent. Smoking Status: Current every day smoker Past Alcohol Use History: None Reported Additional Past Alcohol Use History / Comment(s): Pt states since May 2015 she has cut down on her smoking to about 5 cigarettes a day. She is trying to quit altogether. Past Drug Use History: None Reported - Past Family History Mother Family Medical History: Respiratory Disorder Additional Family Medical History / Comment(s): Mother had pneumo's. She was a heavy smoker. She comitted suicide at 59yrs of age. Father Family Medical History: Congestive Heart Failure (CHF), Myocardial Infarction ([place]), Renal Disease Additional Family Medical History / Comment(s): Father was an alcoholic. He had CHF and 7 AR's. He had one kidney that never developed after age 2yrs. He of kidney failure. Medications and Allergies Home Medications Medication Instructions Recorded Confirmed Type Phenytoin Sodium Extended 100 mg PO TID 08/09/15 06/11/21 History [Dilantin] Clopidogrel [Plavix] 75 mg PO DAILY 12/21/16 06/11/21 History Aspirin EC [Ecotrin Low Dose] 81 mg PO DAILY 07/23/19 06/11/21 History Gabapentin [Neurontin] 100 mg PO QID 07/23/19 06/11/21 History Ascorbic Acid [Vitamin C] 1,000 mg PO DAILY 06/11/21 06/11/21 History Calcium Carb/Mag Ox/Zinc Sulf 1 tab PO DAILY 06/11/21 06/11/21 History [Ibn-Fnm-Xfxo 334-134-5 mg Tab] L.acidoph,Paracasei, B.lactis 1 cap PO DAILY 06/11/21 06/11/21 History [Probiotic] Ubidecarenone [Co Q-10] 100 mg PO DAILY 06/11/21 06/11/21 History Allergies Allergy/AdvReac Type Severity Reaction Status Date / Time Iodinated Contrast Media Allergy Anaphylaxis Verified 06/11/21 16:16 [Iodinated Contrast Media - IV Dye] Penicillins Allergy Swelling Verified 06/11/21 16:16 Physical Exam Vitals: Vital Signs Temp Pulse Resp BP Pulse Ox 06/16/21 08:00 97.7 F 89 16 112/68 93 L 06/16/21 07:45 16 06/16/21 05:58 130 H 18 100/65 95 06/16/21 03:31 122 H 115/73 93 L 06/16/21 01:28 97.6 F 126 H 18 104/73 92 L 06/15/21 22:31 108/70 06/15/21 20:00 93 18 06/15/21 19:00 98.4 F 96 123/67 91 L 06/15/21 14:45 126/75 06/15/21 13:25 98.0 F 93 18 133/73 94 L Intake and Output 06/15/21 06/16/21 06/16/21 22:59 06:59 14:59 Intake Total 53.992 Output Total 40 Balance 13.992 Intake: Intake, IV Titration 53.992 Amount Heparin Sod,Pork in 0.45% 53.992 NaCl 25,000 unit In 0.45 % NaCl 1 250ml.bag @ 12 UNITS/KG/HR 6.749 mls/hr IV .Q24H [facility] Rx#: [id number] Output: Drainage 40 Abdomen 40 Other: Voiding Method Toilet Toilet # Voids 5 5 # Bowel Movements 1 In appearance the patient is calm and comfortable. She is not having any sign ificant respiratory distress at this point in time. Head exam was generally normal. There was no scleral icterus or corneal arcus. Mucous membranes were moist. Neck was supple and without jugular venous distension, thyromegaly, or carotid bruits. Carotids were easily palpable bilaterally. There was no adenopathy. Lungs sounds are diminished and the patient scattered rhonchi scattered expiratory wheezes throughout the lung his bilaterally Cardiac exam revealed the PMI to be normally situated and sized. The rhythm was regular and no extrasystoles were noted during several minutes of auscultation. The first and second heart sounds were normal and physiologic splitting of the second heart sound was noted. There were no murmurs, rubs, clicks, or gallops. Abdomen abdomen surgical wound site is dry clean and intact and the patient has no direct tenderness or rebound tensile guarding. HANNAH drain is in place Examination of the extremities revealed easily palpable radial, femoral and pedal pulses. There was no cyanosis, clubbing or edema. Examination of the skin revealed no evidence of significant rashes, suspicious appearing nevi or other concerning lesions. Neurologically the patient has some right-sided weakness rates to previous CVA. Results - Laboratory Findings CBC and BMP: 06/16/21 07:33 06/16/21 03:48 PT/INR, D-dimer PT 9.7 sec (9.0-12.0) 06/15/21 21:01 INR 0.9 (<1.2) 06/15/21 21:01 D-Dimer 2.66 mg/L FEU (<0.60) H 06/15/21 21:01 Abnormal lab findings: Abnormal Labs 06/11/21 06/11/21 06/11/21 16:06 16:06 16:06 WBC 20.1 H RBC Hct 46.1 H MCV MCHC Plt Count Immature Gran # Neutrophils # 17.9 H Lymphocytes # Monocytes # Eosinophils # D-Dimer Sodium 128 L Chloride 95 L Carbon Dioxide Anion Gap BUN Creatinine 0.36 L BUN/Creatinine Ratio Glucose 144 H POC Glucose (mg/dL) Calcium AST Alkaline Phosphatase 131 H Total Protein Albumin Albumin/Globulin Ratio Amylase Urine Appearance Cloudy H Urine Protein 1+ H Urine Blood Small H Urine RBC 8 H Urine Bacteria Rare H Urine Mucus Many H 06/12/21 06/12/21 06/12/21 06:58 07:39 07:39 WBC 14.9 H RBC Hct MCV MCHC Plt Count Immature Gran # Neutrophils # 13.2 H Lymphocytes # 0.7 L Monocytes # Eosinophils # D-Dimer Sodium 133 L Chloride Carbon Dioxide Anion Gap BUN 6 L Creatinine 0.41 L BUN/Creatinine Ratio Glucose 127 H POC Glucose (mg/dL) 134 H Calcium AST Alkaline Phosphatase Total Protein 5.7 L Albumin 3.2 L Albumin/Globulin Ratio Amylase Urine Appearance Urine Protein Urine Blood Urine RBC Urine Bacteria Urine Mucus 06/12/21 06/13/21 06/13/21 11:21 05:36 05:36 WBC 18.46 H RBC Hct MCV 97.9 H MCHC 31.6 L Plt Count Immature Gran # 0.08 H Neutrophils # 15.55 H Lymphocytes # Monocytes # 1.58 H Eosinophils # 0.01 L D-Dimer Sodium Chloride Carbon Dioxide 18.9 L Anion Gap 16.10 H BUN 8.0 L Creatinine 0.5 L BUN/Creatinine Ratio Glucose POC Glucose (mg/dL) 119 H Calcium AST Alkaline Phosphatase Total Protein 5.8 L Albumin 3.50 L Albumin/Globulin Ratio 1.52 L Amylase 22 L Urine Appearance Urine Protein Urine Blood Urine RBC Urine Bacteria Urine Mucus 06/14/21 06/14/21 06/15/21 05:06 07:14 07:04 WBC 10.63 H RBC 3.92 L Hct MCV 99.0 H MCHC 31.4 L Plt Count 145 L Immature Gran # Neutrophils # 8.56 H Lymphocytes # Monocytes # 1.09 H Eosinophils # 0.01 L D-Dimer Sodium Chloride 108 H Carbon Dioxide Anion Gap BUN Creatinine 0.35 L BUN/Creatinine Ratio Glucose POC Glucose (mg/dL) Calcium AST Alkaline Phosphatase Total Protein 4.9 L Albumin 2.5 L Albumin/Globulin Ratio Amylase Urine Appearance Urine Protein Urine Blood Urine RBC Urine Bacteria Urine Mucus 06/15/21 06/15/21 06/16/21 07:09 21:01 03:48 WBC RBC Hct MCV MCHC Plt Count Immature Gran # Neutrophils # Lymphocytes # Monocytes # Eosinophils # D-Dimer 2.66 H Sodium Chloride Carbon Dioxide Anion Gap BUN Creatinine 0.5 L BUN/Creatinine Ratio 23.33 H Glucose 162 H POC Glucose (mg/dL) Calcium 8.2 L 8.4 L AST 38 H Alkaline Phosphatase Total Protein 5.2 L 5.5 L Albumin 3.10 L 3.30 L Albumin/Globulin Ratio 1.48 L 1.50 L Amylase Urine Appearance Urine Protein Urine Blood Urine RBC Urine Bacteria Urine Mucus 06/16/21 03:48 WBC RBC Hct MCV MCHC Plt Count Immature Gran # Neutrophils # Lymphocytes # 0.9 L Monocytes # Eosinophils # D-Dimer Sodium Chloride Carbon Dioxide Anion Gap BUN Creatinine BUN/Creatinine Ratio Glucose POC Glucose (mg/dL) Calcium AST Alkaline Phosphatase Total Protein Albumin Albumin/Globulin Ratio Amylase Urine Appearance Urine Protein Urine Blood Urine RBC Urine Bacteria Urine Mucus - Diagnostic Findings Chest x-ray: image reviewed Assessment and Plan Plan: 1 laparoscopic cholecystectomy for acute cholecystitis. The patient is postop day #2 2 shortness of breath likely on the basis of COPD. The patient has advanced emphysematous changes bilaterally. Pulse ox is 95% on room air. Doppler of the lower extremities negative. D-dimer is mildly elevated and this is anticipated post cholecystectomy and post cholecystitis. Intermediate VQ scan is of no value in terms of diagnosing pulmonary embolism or ruling in or out the possibility of pulmonary embolism. Clinical suspicion is low. Presentation is more typical of COPD. Doppler of lower extremity edema negative 3 previous history of CVA with right-sided weakness 4 history of seizure disorder 5 history of smoking Plan Discontinue IV heparin Lovenox 40 mg subcu for DVT prophylaxis DuoNeb nebulized treatments around the clock Incentive spirometer Continue same antibiotic coverage monitor the output from the HANNAH drain Pain control We'll follow No need for CT angiogram of the chest pressure with the patient's significant contrast ALLERGIES. May consider CT angiogram with premedication if there is any change in her breathing status.
[2021-06-16] MEDS ORDERED: ENOXAPARIN 40 MG/0.4 ML SYRINGE SQ SCH (12:45)
[2021-06-16] MEDS: ONDANSETRON 4 MG/2 ML VIAL IVP PRN (13:42)
[2021-06-16] MEDS: IPRATROPIUM-ALBUTEROL 3 ML NEB INHALATION SCH ×2 (15:09→18:17)
--- NOTE | 2021-06-16 15:09 | P.CRDCN ---
History of Present Illness History of present illness: HISTORY OF PRESENTING ILLNESS This is a pleasant 71-year-old with past medical history significant for COPD, stroke, seizure disorder, tobacco abuse who presented with right upper quadrant pain and was found to have acute cholecystitis. She underwent cholecystectomy and had been recovering well. She started feeling "unwell" and then had palpitations and fluttering of her chest. Telemetry revealed new tachycardia with heart rates in the 130s to 140s. Telemetry reveals intermittent atrial flutter with variable conduction. By the time EKG was performed only shows sinus rhythm with PACs however telemetry clearly shows atrial flutter. Unclear if typical or atypical. She is concerned about coming off of Plavix that she has been on this for her stroke however discussed that her stroke may have in fact been from atrial flutter in the past. REVIEW OF SYSTEMS At the time of my exam: CONSTITUTIONAL: Denies fever or chills. CARDIOVASCULAR: Denies chest pain, shortness of breath, orthopnea, PND or +palpitations. RESPIRATORY: Denies cough. GASTROINTESTINAL: Denies abdominal pain, diarrhea, constipation, nausea or vomiting. MUSCULOSKELETAL: Denies myalgias. NEUROLOGIC: Denies numbness, tingling or weakness. ENDOCRINE: Denies fatigue, weight change, polydipsia or polyurina. GENITOURINARY: Denies burning, hematuria or urgency with micturation. HEMATOLOGIC: Denies history of anemia or bleeding. PHYSICAL EXAMINATION Vital signs reviewed. CONSTITUTIONAL: No apparent distress. HEENT: Head is normocephalic. Pupils are equal, round. Sclerae anicteric. Mucous membranes of the mouth are moist. No JVD. No carotid bruit. CHEST EXAMINATION: Lungs are clear to auscultation. No chest wall tenderness is noted on palpation or with deep breathing. HEART EXAMINATION: Regular rate and rhythm. S1, S2 heard. No murmurs, gallops or rub. ABDOMEN: Soft, nontender. Positive bowel sounds. EXTREMITIES: 2+ peripheral pulses, no lower extremity edema and no calf tenderness. NEUROLOGIC EXAMINATION: Patient is awake, alert and oriented x3. ASSESSMENT 1. New-onset atrial flutter, unclear if typical or atypical. Currently sinus rhythm 2. Acute cholecystitis status post cholecystectomy 3. Hypertension 4. History of stroke 5. History of seizure disorder 6. COPD PLAN Currently heart rates appear controlled on Lopressor twice a day. Continue with Lopressor for rate control. Telemetry clearly shows flutter waves and therefore we will proceed with anticoagulation. Stop aspirin and Plavix and initiate Eliquis 5 mg twice a day. Check 2-D echo. Further recommendations of follow- up. Past Medical History Past Medical History: COPD, CVA/TIA, Pneumonia, Seizure Disorder Additional Past Medical History / Comment(s): CVA 6 years ago with right sided weakness, epilepsy History of Any Multi-Drug Resistant Organisms: None Reported Past Surgical History: Appendectomy, Tubal Ligation Additional Past Surgical History / Comment(s): part of Right ovary removed Past Anesthesia/Blood Transfusion Reactions: No Reported Reaction Additional Past Anesthesia/Blood Transfusion Reaction / Comment(s): Never received blood Past Psychological History: No Psychological Hx Reported Additional Psychological History / Comment(s): Pt states she has no psychological conditions. She lives with her spouse and adult daughter. he uses no assistive device. She no longer drives-her spouse and manish take her places. She is independent. Smoking Status: Current every day smoker Past Alcohol Use History: None Reported Additional Past Alcohol Use History / Comment(s): Pt states since May 2015 she has cut down on her smoking to about 5 cigarettes a day. She is trying to quit altogether. Past Drug Use History: None Reported - Past Family History Mother Family Medical History: Respiratory Disorder Additional Family Medical History / Comment(s): Mother had pneumo's. She was a heavy smoker. She comitted suicide at 59yrs of age. Father Family Medical History: Congestive Heart Failure (CHF), Myocardial Infarction ([place]), Renal Disease Additional Family Medical History / Comment(s): Father was an alcoholic. He had CHF and 7 OH's. He had one kidney that never developed after age 2yrs. He of kidney failure. Medications and Allergies Home Medications Medication Instructions Recorded Confirmed Type Phenytoin Sodium Extended 100 mg PO TID 08/09/15 06/11/21 History [Dilantin] Clopidogrel [Plavix] 75 mg PO DAILY 12/21/16 06/11/21 History Aspirin EC [Ecotrin Low Dose] 81 mg PO DAILY 07/23/19 06/11/21 History Gabapentin [Neurontin] 100 mg PO QID 07/23/19 06/11/21 History Ascorbic Acid [Vitamin C] 1,000 mg PO DAILY 06/11/21 06/11/21 History Calcium Carb/Mag Ox/Zinc Sulf 1 tab PO DAILY 06/11/21 06/11/21 History [Ftw-Msz-Wezy 334-134-5 mg Tab] L.acidoph,Paracasei, B.lactis 1 cap PO DAILY 06/11/21 06/11/21 History [Probiotic] Ubidecarenone [Co Q-10] 100 mg PO DAILY 06/11/21 06/11/21 History Allergies Allergy/AdvReac Type Severity Reaction Status Date / Time Iodinated Contrast Media Allergy Anaphylaxis Verified 06/11/21 16:16 [Iodinated Contrast Media - IV Dye] Penicillins Allergy Swelling Verified 06/11/21 16:16 Physical Exam Vitals: Vital Signs Temp Pulse Resp BP Pulse Ox 06/16/21 14:00 98.2 F 82 16 116/63 95 06/16/21 08:00 97.7 F 89 16 112/68 93 L 06/16/21 07:45 16 06/16/21 05:58 130 H 18 100/65 95 06/16/21 03:31 122 H 115/73 93 L 06/16/21 01:28 97.6 F 126 H 18 104/73 92 L 06/15/21 22:31 108/70 06/15/21 20:00 93 18 06/15/21 19:00 98.4 F 96 123/67 91 L Intake and Output 06/16/21 06/16/21 06/16/21 06:59 14:59 22:59 Intake Total 53.992 Output Total 40 Balance 13.992 Intake: Intake, IV Titration 53.992 Amount Heparin Sod,Pork in 0.45% 53.992 NaCl 25,000 unit In 0.45 % NaCl 1 250ml.bag @ 12 UNITS/KG/HR 6.749 mls/hr IV .Q24H [facility] Rx#: [id number] Output: Drainage 40 Abdomen 40 Other: Voiding Method Toilet # Voids 5 # Bowel Movements 1 Results 06/16/21 07:33 06/16/21 03:48 Cardiac Enzymes 06/15/21 06/16/21 Range/Units 07:09 03:48 AST 38 H 24 (13-35) U/L Coagulation 06/15/21 06/16/21 Range/Units 21:01 07:33 PT 9.7 (9.0-12.0) sec APTT 25.0 25.6 (22.0-30.0) sec CBC 06/16/21 06/16/21 Range/Units 03:48 07:33 WBC 8.8 9.1 (3.8-10.6) k/uL RBC 4.28 4.22 (3.80-5.40) m/uL Hgb 13.6 13.5 (11.4-16.0) gm/dL Hct 41.1 40.5 (34.0-46.0) % Plt Count 212 235 (150-450) k/uL Comprehensive Metabolic Panel 06/15/21 06/16/21 Range/Units 07:09 03:48 Sodium 142 140 (135-145) mmol/L Potassium 4.3 3.8 (3.5-5.5) mmol/L Chloride 107 106 (96-109) mmol/L Carbon Dioxide 23.7 24.1 (21.6-31.8) mmol/L BUN 14.0 10.0 (9.0-27.0) mg/dL Creatinine 0.6 0.5 L (0.6-1.5) mg/dL Glucose 94 162 H (70-110) mg/dL Calcium 8.2 L 8.4 L (8.7-10.3) mg/dL AST 38 H 24 (13-35) U/L ALT 26 22 (8-44) U/L Alkaline Phosphatase 91 91 (41-126) U/L Total Protein 5.2 L 5.5 L (6.2-8.2) g/dL Albumin 3.10 L 3.30 L (3.80-4.90) g/dL Current Medications Generic Name Dose Route Start Last Admin Trade Name Freq PRN Reason Stop Dose Admin Acetaminophen 500 mg 06/14/21 21:51 06/16/21 14:12 Acetaminophen Tab 500 Mg Tab PO 500 mg Q4HR PRN Administration Fever and/ or Pain Albuterol/Ipratropium 3 ml 06/16/21 16:00 Ipratropium-Albuterol 3 Ml Neb INHALATION RT-QID [facility] Alprazolam 0.5 mg 06/16/21 06:30 06/16/21 06:46 Alprazolam 0.5 Mg Tab PO 0.5 mg BID PRN Administration Anxiety Enoxaparin Sodium 40 mg 06/16/21 12:45 06/16/21 12:49 Enoxaparin 40 Mg/0.4 Ml Syringe SQ 40 mg DAILY [facility] Administration Famotidine 20 mg 06/12/21 09:00 06/16/21 06:47 Famotidine 20 Mg/2 Ml Vial IV 20 mg Q12HR [facility] Administration Heparin Sodium (Porcine) 0 unit 06/16/21 01:38 06/16/21 10:14 Heparin Sodium 1,000 Un/Ml (10ml Vl) IV 2,800 unit PER PROTOCOL PRN Administration Low PTT Protocol Heparin Sodium (Porcine) 0 unit 06/16/21 10:33 Heparin Sodium 1,000 Un/Ml (10ml Vl) IV PER PROTOCOL PRN Low PTT Protocol Cefepime HCl 2 gm/ Sodium 100 mls @ 25 mls/hr 06/12/21 09:15 06/16/21 09:31 Chloride IVPB 25 mls/hr Q8HR [facility] Administration Metronidazole 500 mg/ IV 100 mls @ 100 mls/hr 06/12/21 09:30 06/16/21 06:50 Solution IVPB 100 mls/hr Q8HR@0700,1500,2300 [facility] Administration Metoprolol Tartrate 25 mg 06/15/21 20:00 06/16/21 06:46 Metoprolol Tartrate 25 Mg Tab PO 25 mg BID [facility] Administration Morphine Sulfate 4 mg 06/11/21 17:50 06/15/21 16:53 Morphine Sulfate 4 Mg/Ml Syringe IV 4 mg Q4HR PRN Administration Severe Pain Naloxone HCl 0.2 mg 06/11/21 17:50 Naloxone 0.4 Mg/Ml 1 Ml Vial IV Q2M PRN Opioid Reversal Ondansetron HCl 4 mg 06/11/21 17:50 06/16/21 13:42 Ondansetron 4 Mg/2 Ml Vial IVP 4 mg Q8HR PRN Administration Nausea And Vomiting Phenytoin Sodium 100 mg 06/11/21 22:00 06/16/21 06:47 Phenytoin Sodium Extended 100 Mg Cap PO 100 mg TID [facility] Administration Intake and Output 06/16/21 06/16/21 06/16/21 06:59 14:59 22:59 Intake Total 53.992 Output Total 40 Balance 13.992 Intake: Intake, IV Titration 53.992 Amount Heparin Sod,Pork in 0.45% 53.992 NaCl 25,000 unit In 0.45 % NaCl 1 250ml.bag @ 12 UNITS/KG/HR 6.749 mls/hr IV .Q24H [facility] Rx#: [id number] Output: Drainage 40 Abdomen 40 Other: Voiding Method Toilet # Voids 5 # Bowel Movements 1 06/16/21 07:33 06/16/21 03:48
[2021-06-16] MEDS: APIXABAN 5 MG TAB PO SCH (20:02)
[2021-06-17] MEDS: ACETAMINOPHEN TAB 500 MG TAB PO PRN ×2 (01:57→09:00)
[2021-06-17 05:55] LABS: Basophils % (A) 1 %; Eosinophils # (A) 0.2 k/uL (0-0.7); Eosinophils % (A) 3 %; HCT 37.9 % (34.0-46.0); Lymphocytes # (A) 1.9 k/uL (1.0-4.8); Lymphocytes % (A) 23 %; MCH 32.6 pg (25.0-35.0); MCHC 34.3 g/dL (31.0-37.0); Mean Platelet Volume 8.5; Monocytes # (A) 0.7 k/uL (0-1.0); Monocytes % (A) 9 %; Neutrophils # (A) 5.2 k/uL (1.3-7.7); Neutrophils % (A) 63 %; Platelet Count 207 k/uL (150-450); RBC 3.99 m/uL (3.80-5.40); RDW 12.1 % (11.5-15.5); WBC 8.2 k/uL (3.8-10.6)
[2021-06-17 06:19] LABS: INR 0.9 (<1.2); Prothrombin Time 10.1 sec (9.0-12.0)
[2021-06-17] MEDS: METOPROLOL TARTRATE 25 MG TAB PO SCH (08:48)
[2021-06-17] MEDS: FAMOTIDINE 20 MG/2 ML VIAL IV SCH ×2 (08:48→20:50)
[2021-06-17] MEDS: PHENYTOIN SODIUM EXTENDED 100 MG CAP PO SCH ×3 (08:48→20:50)
[2021-06-17] MEDS: APIXABAN 5 MG TAB PO SCH ×2 (08:48→20:49)
[2021-06-17] MEDS: metroNIDAZOLE-NS PMX 500 MG in SALINE 1 100ML.BAG IVPB SCH (08:49)
[2021-06-17] MEDS ORDERED: METOPROLOL TARTRATE 25 MG TAB PO STA (09:13)
[2021-06-17] MEDS: IPRATROPIUM-ALBUTEROL 3 ML NEB INHALATION SCH ×4 (09:20→19:43)
[2021-06-17] MEDS: CEFEPIME 2 GM in SODIUM CHLORIDE 0.9% 100 ML IVPB SCH ×3 (11:02→23:06)
--- NOTE | 2021-06-17 11:06 | P.PN ---
Subjective Progress Note Date: 06/17/21 Principal diagnosis: Acute cholecystitis Patient doing well today. Denies abdominal pain. No trouble breathing or shortness of breath at this time. She is afebrile. HANNAH drain serosanguineous. Objective - Vital Signs Vital signs: Vital Signs Temp 98.2 F 06/17/21 08:00 Pulse 77 06/17/21 08:00 Resp 16 06/17/21 08:00 BP 157/79 06/17/21 08:00 Pulse Ox 94 L 06/17/21 08:00 Intake & Output 06/16/21 06/17/21 06/17/21 18:59 06:59 18:59 Intake Total 53.992 Output Total 40 Balance 13.992 Intake: Intake, IV Titration 53.992 Amount Heparin Sod,Pork in 0.45% 53.992 NaCl 25,000 unit In 0.45 % NaCl 1 250ml.bag @ 12 UNITS/KG/HR 6.749 mls/hr IV .Q24H [facility] Rx#: [id number] Output: Drainage 40 Abdomen 40 Other: Voiding Method Toilet Toilet Toilet # Voids 5 3 - Exam Abdomen: Soft, nondistended, incisions clean and dry - Labs CBC & Chem 7: 06/17/21 05:21 06/16/21 03:48 Assessment and Plan (1) Acute cholecystitis Narrative/Plan: Patient doing well from our standpoint. May discharge from a surgical point of view. Remove HANNAH drain prior to discharge. Current Visit: Yes Status: Acute Code(s): K81.0 - ACUTE CHOLECYSTITIS SNOMED Code(s): 20054608
--- NOTE | 2021-06-17 12:03 | P.PN ---
Subjective This is a pleasant 71 years old female with past medical history of COPD, CVA/TIA with right hemiparesis, seizure disorder, cigarette smoker Presents because of right upper quadrant abdominal pain of one-day duration, rated as 10/10 by patient on admission no better controlled with pain medication, felt like burning associated with vomiting twice. Pain is nonradiating. She has tried shoulder pain but this is chronic as per patient with no history of recent trauma Vitas looks stable, she is mildly tachycardic with heart rate 98-109. Patient is afebrile. Leukocytosis of 20.1 down to 14.9 K. CBC, liver enzymes and basic metabolic panel are unremarkable. Lipase is normal. Urinalysis is not suspicious of infection. EKG showed sinus tachycardia and [address]-T changes and QTC of 401 CT of the abdomen and pelvis showing moderately dilated gallbladder suspicious for cholecystitis. Mild past stranding of the hepatic flexure of the colon of uncertain significance. There is mild hepatomegaly. Atherosclerotic vascular d isease. Small right adrenal mass is likely benign 06/13/2021 patient is with acute cholecystitis and right upper quadrant abdominal pain and tenderness, however lap kwesi is postponed till Thursday or Thursday because patient was on Plavix which is on hold now to decrease risk of bleeding. Vitals are stable and patient is afebrile. She remains with leukocytosis which is slightly increased to 18.4 , rest of labs are stable. Patient remains on cefepime, Flagyl and normal saline at 75 mL/h 06/14/2021 Patient with the same abdominal pain. She is hemodynamically stable. Leukocytosis back to normal. Planned for lap cholecystectomy today 06/15/2021 Patient was complaining of from some expected pain and tenderness at the surgical site. She is a status post laparoscopic cholecystectomy today is postoperative day #1. She was started on diet However patient started becoming tachycardic through the day and night and went up to 150 at time and was fluctuating. Also patient was mildly hypoxic with oxygen saturation in the low 90s related also she was still dyspneic. Repeat chest x-ray from today showed right pleural effusion, some increased congestion when I looked at the chest x-ray. And COPD IV fluid was stopped, 1 dose of Lasix and 1 dose of salmeterol was provided. Also metoprolol is given. Patient also on Toradol received 1 dose today. We will check d-dimer and if positive we will consider VQ scan. Patient is already on DVT prophylaxis and getting it today Patient the meantime kept on cefepime and Flagyl Surgical team on the case 06/16/2021 yesterday during the day patient heart rate was 90 to 120 And during the night increased to 150 at times, during the night also she was a little more dyspneic than usual Chest x-ray was showing COPD and little bit more congestion with some right pleural effusion of small amount, but does not improved much with 1 dose of IV L asix and Solu-Medrol 125 mg 1. Also heart rate was still elevated despite start patient on metoprolol 25 mg. During the night her heart rate jumped 126. Ordered d-dimer which was elevated 2.6, because of this we started the patient on low intensity heparin drip and ordered a VQ scan which call him back in to me to high intensity this morning, heparin drip to high intensity and consult pulmonary service. Patient yesterday did not want to do the CTA of the chest because of history of contrast ALLERGY many years ago causing her to cardiac rash and her throat closes. Also patient was on Toradol which was stopped, we'll check and her creatinine today which is still pending. Her creatinine increased yesterday 0.3 up to 0.6 which is still within the reference range. No episodes of hypotension This morning patient was still short of breath especially with exertion, no chest pain no coughing or hemoptysis. Patient was on heparin DVT prophylaxis since admission and held only during the surgery. Patient denies any leg pain or swelling or induration. She is a status post laparoscopic cholecystectomy today postop day #2. Her is low risk for bleeding, however surgery team or informed about the patient of this and is currently on heparin drip. Wiliam pain is improving, patient feels hungry and wants to eat, patient on diet now but she does not have bowel movements. But a lot of gas. Her HANNAH drain showing only scant amount of serosanguineous secretions, no active bleeding. Abdomen looks soft with minimal tenderness at the surgical site which is expected. 06/17/2021 I discussed the case with pulmonary team yesterday, patient most likely with no PE but acute COPD exacerbation. Heparin drip was stopped However telemetry showing A. fib, cardiology started her on metoprolol 25 mg twice a day and Eliquis 5 mg twice a day. Risk of bleeding are explained for the patient's lack yesterday and she verbalized understanding and acceptance to continue with Eliquis. Heart rate was still going up at 2 days or increase her metoprolol to 50 mg twice a day. Hemoglobin is stable with no bleeding. Surgery team cleared The patient. Patient told me she is willing to quit smoking Possible discharge in 24-48 hours if she keeps improved Objective - Vital Signs Vital signs: Vital Signs Temp 98.2 F 06/17/21 08:00 Pulse 77 06/17/21 08:00 Resp 16 06/17/21 08:00 BP 157/79 06/17/21 08:00 Pulse Ox 94 L 06/17/21 08:00 Intake & Output 06/16/21 06/17/21 06/17/21 18:59 06:59 18:59 Intake Total 53.992 Output Total 40 Balance 13.992 Intake: Intake, IV Titration 53.992 Amount Heparin Sod,Pork in 0.45% 53.992 NaCl 25,000 unit In 0.45 % NaCl 1 250ml.bag @ 12 UNITS/KG/HR 6.749 mls/hr IV .Q24H C[facility]STY Rx#: [id number] Output: Drainage 40 Abdomen 40 Other: Voiding Method Toilet Toilet Toilet # Voids 5 3 - Exam GENERAL: The patient is alert and oriented x3, not in any acute distress. Well developed, well nourished. HEENT: Pupils are round and equally reacting to light. EOMI. No scleral icterus. No conjunctival pallor. Normocephalic, atraumatic. No pharyngeal erythema. No thyromegaly. CARDIOVASCULAR: S1 and S2 present. No murmurs, rubs, or gallops. -PULMONARY: Chest is clear to auscultation, no wheezing or crackles. Patient tachypneic And orthopnic -ABDOMEN: Soft, mild tenderness at the surgical site, abdomen soft with no rebound tenderness, nondistended, normoactive bowel sounds. No palpable organomegaly. MUSCULOSKELETAL: No joint swelling or deformity. EXTREMITIES: No cyanosis, clubbing, or pedal edema. NEUROLOGICAL: Gross neurological examination did not reveal any focal deficits. SKIN: No rashes. No petechiae - Labs CBC & Chem 7: 08/02/21 05:21 06/16/21 03:48 Assessment and Plan Assessment: Acute cholecystitis, status post laparoscopic cholecystectomy on 06/14 Intermediate to high probability for pulmonary embolism per VQ scan Nicotine dependence Small right adrenal mass is likely benign, patient was informed with recommendation to follow up with her PCP and she agrees COPD, mild postoperative acute exacerbation History of stroke with right hemiparesis Of seizure disorder Plan: This is a pleasant 71 years old female presents with acute cholecystitis. Surgical consult on the case. The patient for discharge Continue with breathing treatment as needed Discontinue heparin drip Increase metoprolol to 50 mg twice a day. Continue with the Eliquis. Continue with antibiotics, currently with cefepime and Flagyl. Switch to oral antibiotics upon discharge, foreshortened oral course Labs and medication were reviewed.. Continue same treatment. Continue with symptomatic treatment. Resume home medication. Monitor lytes and vitals. DVT and GI prophylaxis. Further recommendations depends on the clinical course of the patient DVT prophylaxis: Eliquis GI Prophylaxis: Pepcid Prognosis is guarded Patient discussed her problems and management plan and she agrees. Also I explained to her risk of bleeding with heparin drip including but not limited to bleeding into the brain and she verbalized understanding and acceptance
--- NOTE | 2021-06-17 12:57 | P.PN ---
Subjective Progress Note Date: 06/17/21 Principal diagnosis: Dyspnea I was consulted on this 69-year-old female patient with a possibility of pulmonary embolism. The patient is known to have COPD. The patient is known to have previous history of CVA with some right-sided weakness. Apparently she had TPA back in 2014 for a CVA and she had bleeding complication. Her memory is not the best. She has history of seizure disorder. She came into the hospital because of abdominal pain and nausea and emesis. She had leukocytosis. CAT scan of the abdomen and pelvis showed moderately dilated gallbladder suspicious for cholecystitis. There was mild hepatomegaly. The patient was diagnosed having acute cholecystitis. The patient was started on IV antibiotics. Gen. surgery was consulted. She was given a combination of cefepime and Flagyl. Following that, the patient underwent a laparoscopic cholecystectomy on 06/14/2021. Postop, the patient was having some difficulties in breathing. Chest x-ray showed air COPD with some mild pulmonary vascular congestion. She was given a dose of Lasix. She was given Solu-Medrol. She was given breathing treatments of albuterol updrafts. Later on, she was given a d-dimer that came back at 2.6. The patient was given a VQ scan that came back multiple matching filling defect and this was called to be of an intermediate probability. CT angiogram was not done as the patient has significant ALLERGIES hours contrast material. Doppler of the lower extremity negative. The patient is currently on room air oxygen with a pulse ox of 95%. She is on IV heparin. No swelling in the lower extremities. No calf pain or swelling in the lower extremities. She is postop day #2 for now. She has adequate pain control. HANNAH drain is putting out serous extremities material at the surgical wound site. On 06/17/2021 patient seen in follow-up on medical surgical floor. She is breathing comfortably. Her lung sounds are clear to auscultation on today's exam, her sats are 94-96% on room air, she is resting quietly in bed, she is responding appropriately, she denies any issues with her breathing, no cough, no chest pain. She is on 0.9 normal saline at a rate of 20 ML per hour, patient Is status post laparoscopic cholecystectomy for acute cholecystitis, and today is postoperative day number 3. She was found to have new onset atrial flutter in the postoperative period, she was having symptoms of chest palpitations, fluttering in her chest and some shortness of breath related to that. Patient was started on oral anticoagulation in the form of Eliquis, Lopressor was used for rate control. Patient had since converted back to sinus mechanism, in which she remains today. She is breathing quite comfortably. Her Dopplers of lower extremities were negative, she had a mildly elevated d-dimer however she is already started on oral Eliquis. Her chest x-ray from 06/15/2021 showed a new mild blunting of the right costophrenic angle consistent with the small right pleural effusion. Incentive spirometer will be provided and use will be encouraged. Today she seems completely asymptomatic from pulmonary perspective. Recovering well from her cholecystectomy. Abdomen is soft, her incisions are clean dry and intact, she still has a HANNAH drain in the right abdomen with thin serosanguineous output. Objective - Vital Signs Vital signs: Vital Signs Temp 98.2 F 06/17/21 08:00 Pulse 77 06/17/21 08:00 Resp 16 06/17/21 08:00 BP 157/79 06/17/21 08:00 Pulse Ox 94 L 06/17/21 08:00 Intake & Output 06/16/21 06/17/21 06/17/21 18:59 06:59 18:59 Intake Total 53.992 Output Total 40 Balance 13.992 Intake: Intake, IV Titration 53.992 Amount Heparin Sod,Pork in 0.45% 53.992 NaCl 25,000 unit In 0.45 % NaCl 1 250ml.bag @ 12 UNITS/KG/HR 6.749 mls/hr IV .Q24H [facility]ST[facility] Rx#: [id number] Output: Drainage 40 Abdomen 40 Other: Voiding Method Toilet Toilet Toilet # Voids 5 3 - Exam GENERAL EXAM: Alert, very pleasant, 71-year-old white female, on room air, with pulse ox of 94% comfortable in no apparent distress. HEAD: Normocephalic/atraumatic. EYES: Normal reaction of pupils, equal size. Conjunctiva pink, sclera white. NOSE: Clear with pink turbinates. THROAT: No erythema or exudates. NECK: No masses, no JVD, no thyroid enlargement, no adenopathy. CHEST: No chest wall deformity. Symmetrical expansion. LUNGS: Equal air entry with no crackles, wheeze, rhonchi or dullness. CVS: Regular rate and rhythm, normal S1 and S2, no gallops, no murmurs, no rubs ABDOMEN: Soft, nontender. No hepatosplenomegaly, normal bowel sounds, no guarding or rigidity. Laparoscopic abdominal incisions are clean dry and intact, there is a HANNAH drain in the right upper quadrant, with a small amount of serosanguineous and output EXTREMITIES: No clubbing, no edema, no cyanosis, 2+ pulses and upper and lower extremities. MUSCULOSKELETAL: Muscle strength and tone normal. SPINE: No scoliosis or deformity SKIN: No rashes CENTRAL NERVOUS SYSTEM: Alert and oriented -3. No focal deficits, tone is normal in all 4 extremities. PSYCHIATRIC: Alert and oriented -3. Appropriate affect. Intact judgment and insight. - Labs CBC & Chem 7: 06/17/21 05:21 06/16/21 03:48 Assessment and Plan Plan: Assessment: #1. Shortness of breath, possibly related to mild exacerbation of COPD, and new onset A. fib flutter. Chest x-ray showed small right pleural effusion. D-dimer was mildly elevated however this was nonspecific, and lower extremity Dopplers were negative for DVT. Patient had been started on Eliquis for new onset atrial flutter #2. New onset atrial flutter, patient is currently on Lopressor and Eliquis, has converted to sinus mechanism #3. Acute cholecystitis, status post laparoscopic cholecystectomy, postoperative day #3 #4. Previous history of CVA with right-sided weakness #5. History of seizure disorder #6. History of smoking Plan: She is breathing comfortably on today's exam Lung sounds are clear Encourage deep breathing and coughing Patient has been started on oral anticoagulation for new onset A. fib flutter, no need for CTA chest She is currently on room air, Continue encouraging deep breathing and coughing Incentive spirometry use I performed a history & physical examination of the patient and discussed their management with my nurse practitioner, Aliza Mcintyre. I reviewed the nurse practitioner's note and agree with the documented findings and plan of care. Lung sounds are positive for clear breath sounds throughout the lung love. The findings and the impression was discussed with the patient. I attest to the documentation by the nurse practitioner. Time with Patient: Less than 30
[2021-06-17] MEDS: ALPRAZolam 0.5 MG TAB PO PRN (13:19)
--- NOTE | 2021-06-17 13:30 | P.PN ---
Subjective Progress Note Date: 06/17/21 HISTORY OF PRESENT ILLNESS: This is a pleasant 71-year-old with past medical history significant for COPD, stroke, seizure disorder, tobacco abuse who presented with right upper quadrant pain and was found to have acute cholecystitis. She underwent cholecystectomy and had been recovering well. She started feeling "unwell" and then had palpitations and fluttering of her chest. Telemetry revealed new tachycardia with heart rates in the 130s to 140s. Telemetry reveals intermittent atrial flutter with variable conduction. By the time EKG was performed only shows sinus rhythm with PACs however telemetry clearly shows atrial flutter. Unclear if typical or atypical. She is concerned about coming off of Plavix that she has been on this for her stroke however discussed that her stroke may have in fact been from atrial flutter in the past. 06/17/2021 Patient examined this morning at the bedside. She denies chest pain or pressure. Denies shortness of breath. Telemetry reveals sinus mechanism with frequent PACs. She has been started on Eliquis. However, her co-pay is $120 a month which she states she can not afford. PHYSICAL EXAM: VITAL SIGNS: Reviewed. GENERAL: Well-developed in no acute distress. NECK: Supple. No JVD or thyromegaly LUNGS: Respirations even and unlabored. Lungs essentially clear to auscultation bilaterally. HEART: Telemetry reveals sinus mechanism with frequent PACs. Irregular rate and rhythm. S1 and S2 heard. EXTREMITIES: Normal range of motion. No clubbing or cyanosis. Peripheral pulses intact. No lower extremity edema ASSESSMENT: 1. New-onset paroxysmal atrial flutter, unclear if typical or atypical 2. Acute cholecystitis status post cholecystectomy 3. Hypertension 4. History of stroke 5. History of seizure disorder 6. COPD PLAN: Continue telemetry monitoring. Continue Eliquis. Patient will be given a 1 month supply of Eliquis at discharge. She is to follow up with Dr. Villalobos. Anticoagulation options can be discussed further at her follow up appointment. Nurse practitioner note has been reviewed by physician. Signing provider agrees with the documented findings, assessment, and plan of care. Objective - Vital Signs Vital signs: Vital Signs Temp 98.2 F 06/17/21 08:00 Pulse 77 06/17/21 08:00 Resp 16 06/17/21 08:00 BP 157/79 06/17/21 08:00 Pulse Ox 94 L 06/17/21 08:00 Intake & Output 06/16/21 06/17/21 06/17/21 18:59 06:59 18:59 Intake Total 53.992 Output Total 40 Balance 13.992 Intake: Intake, IV Titration 53.992 Amount Heparin Sod,Pork in 0.45% 53.992 NaCl 25,000 unit In 0.45 % NaCl 1 250ml.bag @ 12 UNITS/KG/HR 6.749 mls/hr IV .Q24H [facility] Rx#: [id number] Output: Drainage 40 Abdomen 40 Other: Voiding Method Toilet Toilet Toilet # Voids 5 3 - Labs CBC & Chem 7: 06/17/21 05:21 06/16/21 03:48
[2021-06-17] MEDS: metroNIDAZOLE 500 MG TAB PO SCH ×2 (16:44→20:49)
[2021-06-17 20:39] LABS: Glucose,Whole Blood 104 mg/dL (75-99)
[2021-06-17] MEDS: GABAPENTIN 100 MG CAP PO SCH ×2 (20:49→23:06)
[2021-06-17] MEDS: METOPROLOL TARTRATE 50 MG TAB PO SCH (20:49)
[2021-06-18] MEDS: ALPRAZolam 0.5 MG TAB PO PRN (04:23)
[2021-06-18] MEDS: IPRATROPIUM-ALBUTEROL 3 ML NEB INHALATION SCH ×3 (07:19→15:31)
[2021-06-18] MEDS: APIXABAN 5 MG TAB PO SCH (08:10)
[2021-06-18] MEDS: METOPROLOL TARTRATE 50 MG TAB PO SCH (08:10)
[2021-06-18] MEDS: GABAPENTIN 100 MG CAP PO SCH ×2 (08:10→14:14)
[2021-06-18] MEDS: PHENYTOIN SODIUM EXTENDED 100 MG CAP PO SCH ×2 (08:10→15:47)
[2021-06-18] MEDS: metroNIDAZOLE 500 MG TAB PO SCH ×2 (08:11→15:47)
[2021-06-18] MEDS: CEFEPIME 2 GM in SODIUM CHLORIDE 0.9% 100 ML IVPB SCH (10:01)
[2021-06-18] MEDS: FAMOTIDINE 20 MG/2 ML VIAL IV SCH (10:01)
--- NOTE | 2021-06-18 11:36 | P.PN ---
Subjective Progress Note Date: 06/18/21 Principal diagnosis: Dyspnea I was consulted on this 69-year-old female patient with a possibility of pulmonary embolism. The patient is known to have COPD. The patient is known to have previous history of CVA with some right-sided weakness. Apparently she had TPA back in 2014 for a CVA and she had bleeding complication. Her memory is not the best. She has history of seizure disorder. She came into the hospital because of abdominal pain and nausea and emesis. She had leukocytosis. CAT scan of the abdomen and pelvis showed moderately dilated gallbladder suspicious for cholecystitis. There was mild hepatomegaly. The patient was diagnosed having acute cholecystitis. The patient was started on IV antibiotics. Gen. surgery was consulted. She was given a combination of cefepime and Flagyl. Following that, the patient underwent a laparoscopic cholecystectomy on 06/14/2021. Postop, the patient was having some difficulties in breathing. Chest x-ray showed air COPD with some mild pulmonary vascular congestion. She was given a dose of Lasix. She was given Solu-Medrol. She was given breathing treatments of albuterol updrafts. Later on, she was given a d-dimer that came back at 2.6. The patient was given a VQ scan that came back multiple matching filling defect and this was called to be of an intermediate probability. CT angiogram was not done as the patient has significant ALLERGIES hours contrast material. Doppler of the lower extremity negative. The patient is currently on room air oxygen with a pulse ox of 95%. She is on IV heparin. No swelling in the lower extremities. No calf pain or swelling in the lower extremities. She is postop day #2 for now. She has adequate pain control. HANNAH drain is putting out serous extremities material at the surgical wound site. On 06/17/2021 patient seen in follow-up on medical surgical floor. She is breathing comfortably. Her lung sounds are clear to auscultation on today's exam, her sats are 94-96% on room air, she is resting quietly in bed, she is responding appropriately, she denies any issues with her breathing, no cough, no chest pain. She is on 0.9 normal saline at a rate of 20 ML per hour, patient Is status post laparoscopic cholecystectomy for acute cholecystitis, and today is postoperative day number 3. She was found to have new onset atrial flutter in the postoperative period, she was having symptoms of chest palpitations, fluttering in her chest and some shortness of breath related to that. Patient was started on oral anticoagulation in the form of Eliquis, Lopressor was used for rate control. Patient had since converted back to sinus mechanism, in which she remains today. She is breathing quite comfortably. Her Dopplers of lower extremities were negative, she had a mildly elevated d-dimer however she is already started on oral Eliquis. Her chest x-ray from 06/15/2021 showed a new mild blunting of the right costophrenic angle consistent with the small right pleural effusion. Incentive spirometer will be provided and use will be encouraged. Today she seems completely asymptomatic from pulmonary perspective. Recovering well from her cholecystectomy. Abdomen is soft, her incisions are clean dry and intact, she still has a HNANAH drain in the right abdomen with thin serosanguineous output. On 06/18/2021 patient seen in follow-up on medical surgical floor. She is awake and alert, in no acute distress, she is breathing comfortably on today's exam, she is on room air pulse ox of 95%, she's had no fever or chills, blood pressure is been stable, she is still slightly tachycardic on the monitor, with a rate of 110-120 BPM, and patient is currently on a beta scott with metoprolol 50 mg twice daily and being followed by cardiology, she was also started on Eliquis. She remains on combination of cefepime and Flagyl. She denies any difficulty breathing, no cough or congestion, no phlegm production, lung sounds are diminished at the bases, no wheezing, no rhonchi. She states she never really had shortness of breath, she does report some heart palpitations when the heart rate increases, no chest pain. She remains on nebulized bronchodilators. She's been working on incentive spirometer. Objective - Vital Signs Vital signs: Vital Signs Temp 97.6 F 06/18/21 08:02 Pulse 106 H 06/18/21 08:02 Resp 18 06/18/21 08:02 BP 114/70 06/18/21 08:02 Pulse Ox 95 06/18/21 09:20 Intake & Output 06/17/21 06/18/21 06/18/21 18:59 06:59 18:59 Intake Total 600 Output Total 30 560 Balance 570 -560 Weight 56.245 kg Intake: Intake, IV Titration 200 Amount Cefepime 2 gm In Sodium 100 Chloride 0.9% 100 ml @ 25 mls/hr IVPB Q8HR [facility] Rx# :[id number] metroNIDAZOLE-NS PMX 500 100 mg In Saline 1 100ml.bag @ 100 mls/hr IVPB Q8HR@ 0700,1500,2300 [facility] Rx#: [id number] Oral 400 Output: Drainage 30 60 Abdomen 30 60 Urine 500 Other: Voiding Method Toilet Toilet # Voids 5 3 - Exam GENERAL EXAM: Alert, very pleasant, 71-year-old white female, on room air, with pulse ox of 94% comfortable in no apparent distress. HEAD: Normocephalic/atraumatic. EYES: Normal reaction of pupils, equal size. Conjunctiva pink, sclera white. NOSE: Clear with pink turbinates. THROAT: No erythema or exudates. NECK: No masses, no JVD, no thyroid enlargement, no adenopathy. CHEST: No chest wall deformity. Symmetrical expansion. LUNGS: Equal air entry with no crackles, wheeze, rhonchi or dullness. CVS: Regular rate and rhythm, normal S1 and S2, no gallops, no murmurs, no rubs ABDOMEN: Soft, nontender. No hepatosplenomegaly, normal bowel sounds, no guarding or rigidity. Laparoscopic abdominal incisions are clean dry and intact, there is a HANNAH drain in the right upper quadrant, with a small amount of serosanguineous and output EXTREMITIES: No clubbing, no edema, no cyanosis, 2+ pulses and upper and lower extremities. MUSCULOSKELETAL: Muscle strength and tone normal. SPINE: No scoliosis or deformity SKIN: No rashes CENTRAL NERVOUS SYSTEM: Alert and oriented -3. No focal deficits, tone is no rmal in all 4 extremities. PSYCHIATRIC: Alert and oriented -3. Appropriate affect. Intact judgment and insight. - Labs CBC & Chem 7: 06/17/21 05:21 06/16/21 03:48 Labs: Abnormal Lab Results - Last 24 Hours (Table) 06/17/21 Range/Units 20:35 POC Glucose (mg/dL) 104 H (75-99) mg/dL Assessment and Plan Plan: Assessment: #1. Shortness of breath, possibly related to mild exacerbation of COPD, and new onset A. fib flutter. Chest x-ray showed small right pleural effusion. D-dimer was mildly elevated however this was nonspecific, and lower extremity Dopplers were negative for DVT. Patient had been started on Eliquis for new onset atrial flutter #2. New onset atrial flutter, patient is currently on Lopressor and Eliquis, has converted to sinus mechanism, still a bit tachycardic, she received an extra dose of Lopressor 25 mg today #3. Acute cholecystitis, status post laparoscopic cholecystectomy, postoperative day #5 #4. Previous history of CVA with right-sided weakness #5. History of seizure disorder #6. History of smoking Plan: She encouraging deep breathing and coughing and incentive spirometry use She reports no shortness of breath, no cough, no phlegm production Vital signs are stable She is maintaining stable O2 saturations on room air She still a bit tachycardic on the monitor, she was given an extra dose of Lopressor today and she has been started on Eliquis Increase activity as tolerated, No fever or chills, no pulmonary symptoms Continue current medical treatment I performed a history & physical examination of the patient and discussed their management with my nurse practitioner, Aliza Mcintyre. I reviewed the nurse pra ctitioner's note and agree with the documented findings and plan of care. Lung sounds are positive for clear breath sounds throughout the lung love. The findings and the impression was discussed with the patient. I attest to the documentation by the nurse practitioner. Time with Patient: Less than 30
--- NOTE | 2021-06-18 11:44 | P.PN ---
<Rekha Dumas - Last Filed: 06/18/21 11:37> Subjective Progress Note Date: 06/18/21 CHIEF COMPLAINT: Abdominal pain HISTORY OF PRESENT ILLNESS: Patient is status post laparoscopic cholecystectomy. Postop day #4. Patient sitting up at bedside chair. She denies any abdominal pain. Denies any nausea or vomiting. She tolerated breakfast. She is having flatus and did have a bowel movement this morning. She has been up and ambulating. She's afebrile. HANNAH drain with serosanguineous output. She had 60 mL through the night and 60 mL this morning. PHYSICAL EXAM: VITAL SIGNS: Reviewed. GENERAL: Well-developed in no acute distress. HEENT: No sclera icterus. Extraocular movements grossly intact. Moist buccal mucosa. Head is atraumatic, normocephalic. ABDOMEN: Soft. Nondistended. Incision sites clean dry and intact NEUROLOGIC: Alert and oriented. Cranial nerves II through XII grossly intact. ASSESSMENT: 1. Acute cholecystitis status post laparoscopic cholecystectomy PLAN: -Patient stable from surgical standpoint for discharge Physician Water Quality Control Engineer note has been reviewed by physician. Signing provider agrees with the documented findings, assessment, and plan of care. Objective - Vital Signs Vital signs: Vital Signs Temp 97.6 F 06/18/21 08:02 Pulse 106 H 06/18/21 08:02 Resp 18 06/18/21 08:02 BP 114/70 06/18/21 08:02 Pulse Ox 95 06/18/21 09:20 Intake & Output 06/17/21 06/18/21 06/18/21 18:59 06:59 18:59 Intake Total 600 Output Total 30 560 Balance 570 -560 Weight 56.245 kg Intake: Intake, IV Titration 200 Amount Cefepime 2 gm In Sodium 100 Chloride 0.9% 100 ml @ 25 mls/hr IVPB Q8HR [facility] Rx# :[id number] metroNIDAZOLE-NS PMX 500 100 mg In Saline 1 100ml.bag @ 100 mls/hr IVPB Q8HR@ 0700,1500,2300 [facility] Rx#: [id number] Oral 400 Output: Drainage 30 60 Abdomen 30 60 Urine 500 Other: Voiding Method Toilet Toilet # Voids 5 3 - Labs CBC & Chem 7: 06/17/21 05:21 06/16/21 03:48 Labs: Abnormal Lab Results - Last 24 Hours (Table) 06/17/21 Range/Units 20:35 POC Glucose (mg/dL) 104 H (75-99) mg/dL <Shay Bronson - Last Filed: 06/18/21 15:55> Subjective As above. Patient doing well today. May remove the HANNAH drain and discharge from our point of view. Follow-up one week Objective - Vital Signs Vital signs: Vital Signs Temp 97.9 F 06/18/21 14:00 Pulse 85 06/18/21 14:00 Resp 16 06/18/21 14:00 BP 109/66 06/18/21 14:00 Pulse Ox 94 L 06/18/21 14:00 Intake & Output 06/17/21 06/18/21 06/18/21 18:59 06:59 18:59 Intake Total 600 Output Total 30 560 60 Balance 570 -560 -60 Weight 56.245 kg Intake: Intake, IV Titration 200 Amount Cefepime 2 gm In Sodium 100 Chloride 0.9% 100 ml @ 25 mls/hr IVPB Q8HR [facility] Rx# :[id number] metroNIDAZOLE-NS PMX 500 100 mg In Saline 1 100ml.bag @ 100 mls/hr IVPB Q8HR@ 0700,1500,2300 [facility] Rx#: [id number] Oral 400 Output: Drainage 30 60 60 Abdomen 30 60 60 Urine 500 Other: Voiding Method Toilet Toilet # Voids 5 3 - Labs CBC & Chem 7: 06/17/21 05:21 06/16/21 03:48 Labs: Abnormal Lab Results - Last 24 Hours (Table) 06/17/21 Range/Units 20:35 POC Glucose (mg/dL) 104 H (75-99) mg/dL Assessment and Plan (1) Acute cholecystitis Current Visit: Yes Status: Acute Code(s): K81.0 - ACUTE CHOLECYSTITIS SNOMED Code(s): 69623634
--- NOTE | 2021-06-18 12:50 | P.PN ---
Subjective Progress Note Date: 06/18/21 HISTORY OF PRESENT ILLNESS: This is a pleasant 71-year-old with past medical history significant for COPD, stroke, seizure disorder, tobacco abuse who presented with right upper quadrant pain and was found to have acute cholecystitis. She underwent cholecystectomy and had been recovering well. She started feeling "unwell" and then had palpitations and fluttering of her chest. Telemetry revealed new tachycardia with heart rates in the 130s to 140s. Telemetry reveals intermittent atrial flutter with variable conduction. By the time EKG was performed only shows sinus rhythm with PACs however telemetry clearly shows atrial flutter. Unclear if typical or atypical. She is concerned about coming off of Plavix that she has been on this for her stroke however discussed that her stroke may have in fact been from atrial flutter in the past. 06/17/2021 Patient examined this morning at the bedside. She denies chest pain or pressure. Denies shortness of breath. Telemetry reveals sinus mechanism with frequent PACs. She has been started on Eliquis. However, her co-pay is $120 a month which she states she can not afford. 06/18/2021 Patient examined at the bedside. She denies chest pain or pressure. Denies shortness of breath. Telemetry reveals sinus mechanism with PACs. She remains anticoagulated with Eliquis. PHYSICAL EXAM: VITAL SIGNS: Reviewed. GENERAL: Well-developed in no acute distress. NECK: Supple. No JVD or thyromegaly LUNGS: Respirations even and unlabored. Lungs essentially clear to auscultation bilaterally. HEART: Telemetry reveals sinus mechanism with frequent PACs. Irregular rate and rhythm. S1 and S2 heard. EXTREMITIES: Normal range of motion. No clubbing or cyanosis. Peripheral pulses intact. No lower extremity edema ASSESSMENT: 1. New-onset paroxysmal atrial flutter, unclear if typical or atypical 2. Acute cholecystitis status post cholecystectomy 3. Hypertension 4. History of stroke 5. History of seizure disorder 6. COPD PLAN: Continue telemetry monitoring. Continue Eliquis. Patient will be given a 1 month supply of Eliquis at discharge. She is to follow up with Dr. Villalobos. Anticoagulation options can be discussed further at her follow up appointment. Stable for DC from cardiac standpoint. We will sign off. Please reconsult if needed. Nurse practitioner note has been reviewed by physician. Signing provider agrees with the documented findings, assessment, and plan of care. Objective - Vital Signs Vital signs: Vital Signs Temp 97.6 F 06/18/21 08:02 Pulse 80 06/18/21 11:48 Resp 18 06/18/21 08:02 BP 114/70 06/18/21 08:02 Pulse Ox 95 06/18/21 09:20 Intake & Output 06/17/21 06/18/21 06/18/21 18:59 06:59 18:59 Intake Total 600 Output Total 30 560 60 Balance 570 -560 -60 Weight 56.245 kg Intake: Intake, IV Titration 200 Amount Cefepime 2 gm In Sodium 100 Chloride 0.9% 100 ml @ 25 mls/hr IVPB Q8HR [facility] Rx# :[id number] metroNIDAZOLE-NS PMX 500 100 mg In Saline 1 100ml.bag @ 100 mls/hr IVPB Q8HR@ 0700,1500,2300 [facility] Rx#: [id number] Oral 400 Output: Drainage 30 60 60 Abdomen 30 60 60 Urine 500 Other: Voiding Method Toilet Toilet # Voids 5 3 - Labs CBC & Chem 7: 06/17/21 05:21 06/16/21 03:48 Labs: Abnormal Lab Results - Last 24 Hours (Table) 06/17/21 Range/Units 20:35 POC Glucose (mg/dL) 104 H (75-99) mg/dL
[2021-06-18 14:43] VITALS: BP 109/66; PULSE 85; RESP 16; TEMP 97.9
[2021-06-18] MEDS ORDERED: FAMOTIDINE 20 MG TAB PO SCH (21:00)
--- NOTE | 2021-06-19 00:01 | P.DS ---
Providers Date of admission: 06/11/21 17:50 Attending physician: Mau Akers Consults: 06/13/21 14:05 Consult Physician Routine Consulting Provider: Shay Bronson Consult Reason/Comments: acute Lucrecia Do you want consulting provider notified?: Already Contacted 06/16/21 10:07 Consult Physician Urgent Consulting Provider: Jeimy Leyva Consult Reason/Comments: abn V/Q scan for PE Do you want consulting provider notified?: Yes Primary care physician: Anup Ron Hospital Course: Diagnoses: Acute cholecystitis, status post laparoscopic cholecystectomy on 06/14 Intermediate to high probability for pulmonary embolism per VQ scan Nicotine dependence Small right adrenal mass is likely benign, patient was informed with recommendation to follow up with her PCP and she agrees COPD, mild postoperative acute exacerbation History of stroke with right hemiparesis Of seizure disorder Hospital course: This is a pleasant 71 years old female with past medical history of COPD, CVA/TIA with right hemiparesis, seizure disorder, cigarette smoker Presents because of right upper quadrant abdominal pain of one-day duration, found to have acute cholecystitis, she underwent laparoscopic cholecystectomy on 06/[address] cortes. Postoperatively patient was noticed to have episodes of tachycardia up to 126 and at times up to 150 with telemetry showing atrial fibrillation/atrial flutter Also she was mildly dyspneic secondary to COPD exacerbation as she is cigarette smoker. Been evaluated by pulp making plant operator and buyer renter She was started on Eliquis. Was about 120 color per month which she cannot afford, therefore a coupon of one month of free Eliquis is provided for the patient with recommendation to follow up with her pulp making plant operator in 1 week and primary doctor for further discussion regarding future anticoagulation, patient verbalized understanding and acceptance. Her heart rate was controlled with metoprolol 50 mg twice a day She was checked if she needs home oxygen with exertion, she does not qualify and she does not need home oxygen The last 2 days patient was eager to go home, her dyspnea is significantly improved and she was saturating 95-96% on room air. No chest pain. She to lerates diet well and minimal abdominal pain and she has regular bowel movements. explained to the patient risk of bleeding with antiplatelets and anti- coagulation medication including but not limited to the risk of bleeding into the brain, GI bleed, extensive bleeding secondary to trauma and/or and she verbalized understanding and acceptance to take these medications Also physical/occupational therapy requested prior to discharge and they found she can go home with home health care which was ordered Patient was cleared for discharge by all consultants including general surgery, pulp making plant operator and buyer renter Problems and management plan were discussed with the patient and he verbalized understanding and acceptance Patient was found stable and can be discharged home however he needs follow-up as an outpatient. Patient was instructed to follow up with PCP lithotomy within one week and patient agrees With appointments made for her on stating she will follow-up With the appointments made for her with buyer renter Dr. morris on 06/27. Patient was instructed to follow up with cardiology associates and her surgeon Dr. Bronson in one week and she agrees to call and make her on the appointments Physical exam Gen: patient is a AAOx3, no distress CVS: S1-S2, RRR, no murmur Lungs: B/L CTA, no wheezing -Abdomen: soft, no distention, no tenderness, positive bowel sounds. Puncture wounds in her abdomen from laparoscopic surgery are healing and closed Extremity: no leg edema or induration. Time spent more than 35 minutes Patient Condition at Discharge: Serious Plan - Discharge Summary Discharge Rx Participant: Yes New Discharge Prescriptions: New Metoprolol Tartrate [Lopressor] 50 mg PO BID #60 tab Famotidine [Pepcid] 20 mg PO BID #30 tab Apixaban [Eliquis] 5 mg PO BID #60 tab Albuterol Inhaler [Ventolin Hfa Inhaler] 1 puff INHALATION RT-QID #1 vial Continue Phenytoin Sodium Extended [Dilantin] 100 mg PO TID Clopidogrel [Plavix] 75 mg PO DAILY Aspirin EC [Ecotrin Low Dose] 81 mg PO DAILY Gabapentin [Neurontin] 100 mg PO QID Calcium Carb/Mag Ox/Zinc Sulf [Bpr-Zsx-Rdcg 334-134-5 mg Tab] 1 tab PO DAILY Ascorbic Acid [Vitamin C] 1,000 mg PO DAILY Ubidecarenone [Co Q-10] 100 mg PO DAILY L.acidoph,Paracasei, B.lactis [Probiotic] 1 cap PO DAILY Discharge Medication List Phenytoin Sodium Extended [Dilantin] 100 mg PO TID 08/09/15 [History] Clopidogrel [Plavix] 75 mg PO DAILY 12/21/16 [History] Aspirin EC [Ecotrin Low Dose] 81 mg PO DAILY 07/23/19 [History] Gabapentin [Neurontin] 100 mg PO QID 07/23/19 [History] Ascorbic Acid [Vitamin C] 1,000 mg PO DAILY 06/11/21 [History] Calcium Carb/Mag Ox/Zinc Sulf [Gkp-Znq-Ofdo 334-134-5 mg Tab] 1 tab PO DAILY 06/11/21 [History] L.acidoph,Paracasei, B.lactis [Probiotic] 1 cap PO DAILY 06/11/21 [History] Ubidecarenone [Co Q-10] 100 mg PO DAILY 06/11/21 [History] Apixaban [Eliquis] 5 mg PO BID #60 tab 06/17/21 [Rx] Albuterol Inhaler [Ventolin Hfa Inhaler] 1 puff INHALATION RT-QID #1 vial 06/18/21 [Rx] Famotidine [Pepcid] 20 mg PO BID #30 tab 06/18/21 [Rx] Metoprolol Tartrate [Lopressor] 50 mg PO BID #60 tab 06/18/21 [Rx] Follow up Appointment(s)/Referral(s): [facility] [Provider Group] - 1 Week (Office will call with appointment date and time.) Shay Bronson MD [Medical Doctor] - 1 Week Jimbo Macdonald MD [STAFF PHYSICIAN] - 06/27/21 1:00 pm [facility], [NON-STAFF] - Anup Ron DO [Primary Care Provider] - 06/20/21 2:00 pm (with Conchita) Activity/Diet/Wound Care/Special Instructions: heart healthy diet activity is restricted till you see your doctor Discharge Disposition: HOME WITH HOME HEALTH SERVICES
== END 2021-06-18 17:30 | disposition home health service (06) | DRG 418 ==
LOC: EC 14:32 → 4SSUR 17:50
PROVIDERS: ADMIT Hospitalist; ATTEND Hospitalist
PROC: 0FT44ZZ Resection of Gallbladder, Percutaneous Endoscopic Approach (ICD-10-PCS; principal; 2021-06-11)
DX: K81.0 Acute cholecystitis (principal); I48.92 Unspecified atrial flutter; I69.351 Hemiplegia and hemiparesis following cerebral infarction affecting right dominant side; J44.1 Chronic obstructive pulmonary disease with (acute) exacerbation; J90 Pleural effusion, not elsewhere classified; I49.1 Atrial premature depolarization; I10 Essential (primary) hypertension; I48.0 Paroxysmal atrial fibrillation; G89.29 Other chronic pain; M25.519 Pain in unspecified shoulder; Z20.822 Contact with and (suspected) exposure to COVID-19; E27.8 Other specified disorders of adrenal gland; F17.210 Nicotine dependence, cigarettes, uncomplicated; R16.0 Hepatomegaly, not elsewhere classified; G40.909 Epilepsy, unspecified, not intractable, without status epilepticus; R11.2 Nausea with vomiting, unspecified; R00.0 Tachycardia, unspecified; R09.89 Other specified symptoms and signs involving the circulatory and respiratory systems; Z79.01 Long term (current) use of anticoagulants; Z79.02 Long term (current) use of antithrombotics/antiplatelets; Z79.82 Long term (current) use of aspirin; Z79.899 Other long term (current) drug therapy; Z90.721 Acquired absence of ovaries, unilateral; Z91.041 Radiographic dye allergy status; Z88.0 Allergy status to penicillin; Z71.6 Tobacco abuse counseling; Z90.49 Acquired absence of other specified parts of digestive tract; Z87.01 Personal history of pneumonia (recurrent); Z98.51 Tubal ligation status
CPT/HCPCS: 36415; 51798; 71045; 71046; 74177; 76705; 78582; 80053; 81001; 82150; 83605; 83690; 83735; 84443; 84484; 85025; 85379; 85610; 85730; 88304; 93005; 93970; 94640; 96360; 96361; 96365; 96368; 96375; 99285

== ENCOUNTER 2021-07-11 17:17 | Observation (INO) | payer MEDICARE ==
[2021-07-11 17:21] LABS: Glucose,Whole Blood 97 mg/dL (75-99)
[2021-07-11] MEDS ORDERED: diphenhydrAMINE 50 MG/ML 1 ML VIAL IVP STA (17:31)
[2021-07-11] MEDS ORDERED: methylPREDNISolone SOD SUCCI 125 MG/2 ML VIAL IV STA (17:31)
[2021-07-11] MEDS ORDERED: FAMOTIDINE 20 MG/2 ML VIAL IV STA (17:31)
--- NOTE | 2021-07-11 17:40 | ED ---
Neuro HPI - General Chief Complaint: Neuro Symptoms/Deficit Stated Complaint: Possible stroke Time Seen by Provider: 07/11/21 17:24 Source: patient, EMS Mode of arrival: EMS - History of Present Illness Is the patient presenting with stroke symptoms?: Yes Initial Comments: 71-year-old female with past medical history of CVA, proximal A. fib, seizure disorder presents emergency room with reported stroke like symptoms. EMS provides most the history. They state that 1625 she had sudden onset of right- sided facial droop and right upper and lower extremity weakness. She has had previous history of stroke however regained most of her strength. Patient denies any visual complaints. No recent head trauma. No speech difficulties noted from the patient. She is on eliquis or her recent diagnosis of A. fib. Patient is currently wearing a heart monitor. Admits that she had sudden onset of palpitations and her strokelike symptoms came on. Recent fevers or chills. No other alleviating, precipitating or modifying factors - Related Data Home Medications: Home Medications Medication Instructions Recorded Confirmed Gabapentin [Neurontin] 100 mg PO QID 07/23/19 07/11/21 Ascorbic Acid [Vitamin C] 1,000 mg PO DAILY 06/11/21 07/11/21 Calcium Carb/Mag Ox/Zinc Sulf 1 tab PO DAILY 06/11/21 07/11/21 [Cdb-Tan-Kevx 334-134-5 mg Tab] L.acidoph,Paracasei, B.lactis 1 cap PO DAILY 06/11/21 07/11/21 [Probiotic] Ubidecarenone [Co Q-10] 100 mg PO DAILY 06/11/21 07/11/21 Metoprolol Tartrate [Lopressor] 50 mg PO BID 07/11/21 07/11/21 Previous Rx's Medication Instructions Recorded Apixaban [Eliquis] 5 mg PO BID #60 tab 06/17/21 Albuterol Inhaler [Ventolin Hfa 1 puff INHALATION RT-QID #1 vial 06/18/21 Inhaler] Famotidine [Pepcid] 20 mg PO BID #30 tab 06/18/21 Atorvastatin [Lipitor] 40 mg PO DAILY #30 tab 07/13/21 Phenytoin Sodium Extended 100 mg PO QID #120 cap 07/13/21 [Dilantin] Allergies/Adverse Reactions: Allergies Allergy/AdvReac Type Severity Reaction Status Date / Time Iodinated Contrast Media Allergy Anaphylaxis Verified 06/11/21 16:16 [Iodinated Contrast Media - IV Dye] Penicillins Allergy Swelling Verified 06/11/21 16:16 Review of Systems ROS Statement: Those systems with pertinent positive or pertinent negative responses have been documented in the HPI. ROS Other: All systems not noted in ROS Statement are negative. General Exam General appearance: alert, anxious Head exam: Present: atraumatic, normocephalic Eye exam: Present: normal appearance, PERRL, EOMI. Absent: scleral icterus, conjunctival injection, periorbital swelling ENT exam: Present: other (flattening right nasolabial fold) Respiratory exam: Present: normal lung sounds bilaterally. Absent: respiratory distress, wheezes, rales, rhonchi, stridor Cardiovascular Exam: Present: regular rate, normal rhythm, normal heart sounds. Absent: systolic murmur, diastolic murmur, rubs, gallop, clicks GI/Abdominal exam: Present: soft, normal bowel sounds. Absent: distended, tenderness, guarding, rebound, rigid Extremities exam: Present: other (2/5 strength RUE, 2/5 strength RLE) Neurological exam: Present: alert, CN II-XII intact, other (no dysarthia. no aphasia) Psychiatric exam: Present: anxious Skin exam: Present: warm, dry, intact, normal color. Absent: rash Stroke MDM - Lab Data Result diagrams: 07/12/21 07:55 07/12/21 07:55 Lab Results 07/11/21 07/11/21 07/11/21 Range/Units 17:19 17:26 17:26 WBC 7.8 (3.8-10.6) k/uL RBC 4.94 (3.80-5.40) m/uL Hgb 16.0 D (11.4-16.0) gm/dL Hct 46.8 H (34.0-46.0) % MCV 94.9 (80.0-100.0) fL MCH 32.5 (25.0-35.0) pg MCHC 34.2 (31.0-37.0) g/dL RDW 13.5 (11.5-15.5) % Plt Count 197 (150-450) k/uL MPV 8.5 Neutrophils % 50 % Lymphocytes % 37 % Monocytes % 7 % Eosinophils % 3 % Basophils % 1 % Neutrophils # 3.9 (1.3-7.7) k/uL Lymphocytes # 2.9 (1.0-4.8) k/uL Monocytes # 0.5 (0-1.0) k/uL Eosinophils # 0.2 (0-0.7) k/uL Basophils # 0.1 (0-0.2) k/uL PT 10.5 (9.0-12.0) sec INR 1.0 (<1.2) APTT 23.0 (22.0-30.0) sec Sodium (137-145) mmol/L Potassium (3.5-5.1) mmol/L Chloride (98-107) mmol/L Carbon Dioxide (22-30) mmol/L Anion Gap mmol/L BUN (7-17) mg/dL Creatinine (0.52-1.04) mg/dL Est GFR (CKD-EPI)AfAm (>60 ml/min/1.73 sqM) Est GFR (CKD-EPI)NonAf (>60 ml/min/1.73 sqM) Glucose (74-99) mg/dL POC Glucose (mg/dL) 97 (75-99) mg/dL POC Glu Radiologic Electronic Specialist ID [place] Calcium (8.4-10.2) mg/dL Total Bilirubin (0.2-1.3) mg/dL AST (14-36) U/L ALT (4-34) U/L Alkaline Phosphatase (38-126) U/L Troponin I (0.000-0.034) ng/mL Total Protein (6.3-8.2) g/dL Albumin (3.5-5.0) g/dL Triglycerides (0.0-149.0) mg/dL Cholesterol (0-200) mg/dL LDL Cholesterol, Calc (0.0-131.0) mg/dL VLDL Cholesterol, Calc (5.00-40.00) mg/dL HDL Cholesterol (40.0-60.0) mg/dL Cholesterol/HDL Ratio Phenytoin ug/mL 07/11/21 07/11/21 07/11/21 Range/Units 17:26 17:26 17:26 WBC (3.8-10.6) k/uL RBC (3.80-5.40) m/uL Hgb (11.4-16.0) gm/dL Hct (34.0-46.0) % MCV (80.0-100.0) fL MCH (25.0-35.0) pg MCHC (31.0-37.0) g/dL RDW (11.5-15.5) % Plt Count (150-450) k/uL MPV Neutrophils % % Lymphocytes % % Monocytes % % Eosinophils % % Basophils % % Neutrophils # (1.3-7.7) k/uL Lymphocytes # (1.0-4.8) k/uL Monocytes # (0-1.0) k/uL Eosinophils # (0-0.7) k/uL Basophils # (0-0.2) k/uL PT (9.0-12.0) sec INR (<1.2) APTT (22.0-30.0) sec Sodium 135 L (137-145) mmol/L Potassium 4.5 (3.5-5.1) mmol/L Chloride 103 (98-107) mmol/L Carbon Dioxide 26 (22-30) mmol/L Anion Gap 6 mmol/L BUN 8 (7-17) mg/dL Creatinine 0.52 (0.52-1.04) mg/dL Est GFR (CKD-EPI)AfAm >90 (>60 ml/min/1.73 sqM) Est GFR (CKD-EPI)NonAf >90 (>60 ml/min/1.73 sqM) Glucose 106 H (74-99) mg/dL POC Glucose (mg/dL) (75-99) mg/dL POC Glu Radiologic Electronic Specialist ID Calcium 9.3 (8.4-10.2) mg/dL Total Bilirubin 0.3 (0.2-1.3) mg/dL AST 34 (14-36) U/L ALT 34 (4-34) U/L Alkaline Phosphatase 120 (38-126) U/L Troponin I <0.012 (0.000-0.034) ng/mL Total Protein 6.7 (6.3-8.2) g/dL Albumin 3.9 (3.5-5.0) g/dL Triglycerides 107.0 (0.0-149.0) mg/dL Cholesterol 245 H (0-200) mg/dL LDL Cholesterol, Calc 170.6 H (0.0-131.0) mg/dL VLDL Cholesterol, Calc 21.40 (5.00-40.00) mg/dL HDL Cholesterol 53.0 (40.0-60.0) mg/dL Cholesterol/HDL Ratio 4.62 Phenytoin 6.2 ug/mL - Medical Decision Making The patient is placed in trauma 1. History and physical exam is performed. Patient does have an NIH of 15. Code stroke is activated. Patient sent over for a CT of her brain. CT angiography also performed after the patient received pretreatment. Laboratory studies are reviewed. CT the patient's brain and straits no evidence for acute intracranial hemorrhage midline shift or mass effect. CT angiography demonstrates no evidence of occlusion or significant stenosis within the cervical Meyers. Mild narrowing at the carotid bifurcations. I did speak with Dr. Marr. She is not a TPA candidate at this time as she is on anticoagulation. No large vessel occlusion for thrombectomy. Chest x-ray is also performed which demonstrates COPD and pulmonary arterial hypertension. Patient is given an aspirin. I am instructed to hold the patient's anticoagulation at this time. Patient will be admitted with Dr. Holland to consult. Spoke with Dr. noel who agreed to admit the patient. Patient did have rapidly improving symptom. patient taken to the floor in stable condition 07/11/21 17:40 EKG demonstrates normal sinus rhythm with a ventricular rate of 77. WI interval 122. QRS 78. QTC of 436. No acute ST segment elevations or depressions Past Medical History Past Medical History: COPD, CVA/TIA, Pneumonia, Seizure Disorder Additional Past Medical History / Comment(s): CVA 6 years ago with right sided weakness, epilepsy History of Any Multi-Drug Resistant Organisms: None Reported Past Surgical History: Appendectomy, Tubal Ligation Additional Past Surgical History / Comment(s): part of Right ovary removed Past Anesthesia/Blood Transfusion Reactions: No Reported Reaction Additional Past Anesthesia/Blood Transfusion Reaction / Comment(s): Never received blood Past Psychological History: No Psychological Hx Reported Smoking Status: Current every day smoker Past Alcohol Use History: None Reported Past Drug Use History: None Reported - Past Family History Mother Family Medical History: Respiratory Disorder Additional Family Medical History / Comment(s): Mother had pneumo's. She was a heavy smoker. She comitted suicide at 59yrs of age. Father Family Medical History: Congestive Heart Failure (CHF), Myocardial Infarction (PR), Renal Disease Additional Family Medical History / Comment(s): Father was an alcoholic. He had CHF and 7 PR's. He had one kidney that never developed after age 2yrs. He of kidney failure. Course Vital Signs 07/11/21 07/11/21 07/11/21 17:18 17:37 17:50 Temperature 97.9 F Pulse Rate 77 71 70 Respiratory 18 18 18 Rate Blood Pressure 143/79 125/85 138/65 O2 Sat by Pulse 96 97 96 Oximetry 07/11/21 07/11/21 07/11/21 18:05 18:20 18:35 Temperature Pulse Rate 73 71 73 Respiratory 18 18 16 Rate Blood Pressure 125/60 137/64 128/67 O2 Sat by Pulse 95 95 95 Oximetry 07/11/21 07/11/21 07/11/21 18:50 19:00 19:30 Temperature 98.0 F Pulse Rate 82 71 75 Respiratory 18 20 22 Rate Blood Pressure 122/85 111/63 123/75 O2 Sat by Pulse 96 95 95 Oximetry 07/11/21 07/11/21 20:00 20:15 Temperature Pulse Rate 77 67 Respiratory 20 18 Rate Blood Pressure 106/67 106/63 O2 Sat by Pulse 95 96 Oximetry Critical Care Time Critical Care Time: Yes Critical Care Time: 35 minutes for activation of code stroke Disposition Clinical Impression: CVA (cerebral infarction) Disposition: ADMITTED IP TO THIS [facility] Condition: Stable Is patient prescribed a controlled substance at d/c from ED?: No Decision to Admit Reason: Admit from EC Decision Date: 07/11/21 Decision Time: 19:27
[2021-07-11 17:41] LABS: Basophils # (A) 0.1 k/uL (0-0.2); Basophils % (A) 1 %; Eosinophils # (A) 0.2 k/uL (0-0.7); Eosinophils % (A) 3 %; HCT 46.8 % (34.0-46.0); Lymphocytes # (A) 2.9 k/uL (1.0-4.8); Lymphocytes % (A) 37 %; MCH 32.5 pg (25.0-35.0); MCHC 34.2 g/dL (31.0-37.0); MCV 94.9 fL (80.0-100.0); Mean Platelet Volume 8.5; Monocytes # (A) 0.5 k/uL (0-1.0); Monocytes % (A) 7 %; Neutrophils # (A) 3.9 k/uL (1.3-7.7); Neutrophils % (A) 50 %; Platelet Count 197 k/uL (150-450); RBC 4.94 m/uL (3.80-5.40); RDW 13.5 % (11.5-15.5); WBC 7.8 k/uL (3.8-10.6)
[2021-07-11 17:45] LABS: Prothrombin Time 10.5 sec (9.0-12.0)
[2021-07-11 17:46] LABS: ALT 34 U/L (4-34); AST 34 U/L (14-36); African American GFR (CKD) >90 (>60 ml/min/1.73 sqM); Albumin 3.9 g/dL (3.5-5.0); Alkaline Phosphatase 120 U/L (38-126); Anion Gap 6 mmol/L; Blood Urea Nitrogen 8 mg/dL (7-17); Calcium 9.3 mg/dL (8.4-10.2); Carbon Dioxide 26 mmol/L (22-30); Chloride 103 mmol/L (98-107); Glucose 106 mg/dL (74-99); Non-African American GFR(CKD) >90 (>60 ml/min/1.73 sqM); Phenytoin (Dilantin) 6.2 ug/mL; Potassium 4.5 mmol/L (3.5-5.1); Sodium 135 mmol/L (137-145); Total Bilirubin 0.3 mg/dL (0.2-1.3); Total Protein 6.7 g/dL (6.3-8.2)
--- NOTE | 2021-07-11 18:06 | CT ---
EXAMINATION TYPE: CT brain wo con for TPA DATE OF EXAM: 07/11/2021 COMPARISON: 07/23/2019 HISTORY: Right sided weakness. TECHNIQUE: CT scan of the head performed without contrast CT DLP: 1114.8 mGycm Automated exposure control for dose reduction was used. FINDINGS: Limited study due to streak artifact. No evidence for acute intracranial hemorrhage, midline shift or mass effect. Chaves-white matter differ entiation is preserved. Scattered white matter low attenuating lesions could represent lacunar infarcts. Again seen are findings related to chronic microvascular ischemic changes and brain volume loss. Ther e is no evidence for ventricular megaly. Posterior fossa contents are within normal limit. Minimal atherosclerotic calcifications are seen in the intracranial internal carotid arteries. No acute orbital, osseous or soft tissue abnormality. Mild mucosal thickening in the ethmoid sinuses. Remaining paranasal sinuses and mastoid air cells are aerated. IMPRESSION: NO EVIDENCE FOR ACUTE INTRACRANIAL HEMORRHAGE, MIDLINE SHIFT OR MASS EFFECT. CHRONIC CHANGES WITHOUT SIGNIFICANT CHANGE SINCE PRIOR, SEE BODY OF REPORT SCATTERED LOW ATTENUATING WHITE MATTER LESIONS COULD REPRESENT LACUNAR INFARCTS, RECOMMEND CORRELATIO N WITH NONCONTRAST ENHANCED MRI OF THE BRAIN, MAY BE PERFORMED ON OUTPATIENT BASIS.
--- NOTE | 2021-07-11 18:12 | CT ---
EXAMINATION TYPE: CT angio head neck DATE OF EXAM: 07/11/2021 HISTORY: Right sided weakness. COMPARISON: 06/04/2019 CT DLP: 362.5 mGycm. Automated Exposure Control for Dose Reduction was Utilized. TECHNIQUE: CTA scan of the neck is performed with IV Contrast, patient injected with 65 mL of Isovue 370, axial images are obtained, coronal and sagittal reformatted images are reviewed. Three-D recons tructed images are created on an independent workstation and reviewed. FINDINGS: Carotid/Vascular Structures: Atherosclerotic calcification seen in the arch of the aorta and at the r egion of the brachiocephalic, left common carotid and left subclavian arteries. Calcific and soft jama que are seen at the bilateral carotid bifurcation left greater than right, causes mild narrowing on t he left. Internal carotid arteries in the neck are patent. Tiny calcification seen at the region of t he right vertebral artery, both vertebral arteries are patent. The basilar artery is patent. Anterior cerebral arteries, proximal middle cerebral arteries and posterior cerebral arteries are pat ent. Other: Centrilobular advanced emphysema seen in the lungs. 1.3 cm pleural thickening in the left uppe r lobe seen. An enlarged thyroid gland. Parapharyngeal fat is maintained. No cervical lymphadenopathy . Patent airways with thickening along the anterior upper tracheal wall. IMPRESSION: 1. No evidence of occlusion or significant stenosis within eyak of Meyers. 2. Mild bilateral left greater than right narrowing at the carotid bifurcation. 3. Centrilobular emphysema, left upper lobe pleural thickening. 4. Thickening along the anterior upper tracheal wall.
[2021-07-11] MEDS ORDERED: ASPIRIN 325 MG TAB PO STA (18:28)
[2021-07-11] MEDS ORDERED: NALOXONE 0.4 MG/ML 1 ML VIAL IV PRN (19:27)
--- NOTE | 2021-07-11 20:05 | XR ---
EXAMINATION TYPE: XR chest 2V DATE OF EXAM: 07/11/2021 COMPARISON: 06/15/2021 HISTORY: 71-year-old female confusion, altered mental status TECHNIQUE: AP and lateral views FINDINGS: The heart is normal size. Atherosclerotic arch calcifications. Hyperinflation. Large caliber to the m ain right and left pulmonary arteries on the lateral view. No elayne consolidation or pleural effusion . IMPRESSION: COPD and pulmonary arterial hypertension. Otherwise, no definite acute process.
[2021-07-11] MEDS: ATORVASTATIN 40 MG TAB PO SCH (20:23)
[2021-07-11] MEDS: GABAPENTIN 100 MG CAP PO SCH (22:43)
[2021-07-11] MEDS: PHENYTOIN SODIUM EXTENDED 100 MG CAP PO SCH (22:43)
[2021-07-12 07:25] LABS: Glucose,Whole Blood 90 mg/dL (75-99)
[2021-07-12 08:13] LABS: Basophils % (A) 1 %; Eosinophils # (A) 0.1 k/uL (0-0.7); Eosinophils % (A) 1 %; HCT 46.3 % (34.0-46.0); HGB 15.1 gm/dL (11.4-16.0); Lymphocytes # (A) 2.4 k/uL (1.0-4.8); Lymphocytes % (A) 27 %; MCHC 32.7 g/dL (31.0-37.0); MCV 97.8 fL (80.0-100.0); Monocytes # (A) 0.6 k/uL (0-1.0); Monocytes % (A) 6 %; Neutrophils # (A) 5.6 k/uL (1.3-7.7); Neutrophils % (A) 63 %; Platelet Count 175 k/uL (150-450); RBC 4.74 m/uL (3.80-5.40); RDW 13.4 % (11.5-15.5); WBC 8.8 k/uL (3.8-10.6)
[2021-07-12 08:19] LABS: ALT 30 U/L (4-34); AST 29 U/L (14-36); African American GFR (CKD) >90 (>60 ml/min/1.73 sqM); Albumin 3.7 g/dL (3.5-5.0); Alkaline Phosphatase 112 U/L (38-126); Anion Gap 8 mmol/L; Blood Urea Nitrogen 11 mg/dL (7-17); Calcium 9.1 mg/dL (8.4-10.2); Carbon Dioxide 26 mmol/L (22-30); Chloride 103 mmol/L (98-107); Glucose 155 mg/dL (74-99); Magnesium 1.9 mg/dL (1.6-2.3); Non-African American GFR(CKD) >90 (>60 ml/min/1.73 sqM); Potassium 4.2 mmol/L (3.5-5.1); Sodium 137 mmol/L (137-145); Total Bilirubin 0.2 mg/dL (0.2-1.3); Total Protein 6.3 g/dL (6.3-8.2)
[2021-07-12] MEDS: METOPROLOL TARTRATE 50 MG TAB PO SCH ×2 (08:38→22:06)
[2021-07-12] MEDS: GABAPENTIN 100 MG CAP PO SCH ×4 (08:38→22:06)
[2021-07-12] MEDS: ATORVASTATIN 40 MG TAB PO SCH (08:38)
[2021-07-12] MEDS: PHENYTOIN SODIUM EXTENDED 100 MG CAP PO SCH (08:38)
[2021-07-12] MEDS ORDERED: ASPIRIN 325 MG TAB PO SCH (09:00)
[2021-07-12 10:18] LABS: Chol/HDL Ratio 4.62; LDL Cholesterol,Calculated 170.6 mg/dL (0.0-131.0); VLDL Calculation 21.4 mg/dL (5.00-40.00)
--- NOTE | 2021-07-12 15:16 | P.CNNES ---
History of Present Illness Consult date: 07/12/21 Requesting physician: Maribell Arcos Reason for Consult: transient right hemiparesis, suspected tia History of Present Illness: Patient is a 71-year-old right-handed female came to the hospital by ambulance yesterday at 5:15 PM for strokelike symptoms. Patient states that she was sitting in the chair watching TV when she noticed some pulling sensation towards the right involving her right side of the mouth. Her cheek, eyes and the mouth muscles felt pulling down. She couldn't talk. She was slurring words and then she notices her right side was numb, couldn't use her right arm or right leg. She felt her heart was racing. Her mentation was completely intact, with no alteration of level of consciousness or awareness. Due to the symptoms, patient called EMS. As per EMS flow sheet when they arrived patient was alert and oriented 4, complaining of stroke like symptoms that started at 4:25 PM. Patient has total right-sided weakness and slight right-sided facial droop. Patient has history of strokes and TIA. Patient's blood pressure at the scene was 168/92, pulse rate 81, respirations 18, saturation 97%, blood sugar 100. Patient's vital signs on arrival blood pressure 143/79, pulse rate 77, temper ature 97.9. Blood test shows normal CBC, PT/PTT, sodium 135 potassium 4.5, normal renal and hepatic panel. Troponin is negative. Patient's total cholesterol is 245, LDL 170, HDL 53 and triglycerides 107. Dilantin level is 6.2. Computed tomography scan of head showed no evidence for acute intracranial hemorrhage or midline shift or mass effect. Chronic changes without significant change since prior. Scattered low attenuating white matter lesions could represent lacunar infarcts, recommend correlation with noncontrast enhanced MRI of the brain. CTA of head and neck showed no evidence of occlusion or significant stenosis within the sun'aq of Meyers. Mild bilateral left greater than right narrowing of the carotid bifurcation. Centrilobular emphysema, left upper lobe pleural thickening. Thickening around the anterior upper tracheal wall. EKG shows normal sinus rhythm. Chest x-ray showed COPD and pulmonary arterial hypertension. Patient states that all her neurological symptoms resolved within 6-7 hours. This morning at 7:15 AM, while in the hospital, patient was eating breakfast, when she called the nurse and she was shaking all over, both sides of the body, spilled over the coffee. She could not stop tremoring. It lasted for about 5 minutes. Patient believes that this was not a seizure. However this event was witnessed by the nurse. Patient's home medications include Dilantin 100 mg 3 times a day, Plavix 75 mg, aspirin 81 mg, gabapentin 100 mg 4 times a day, Eliquis 5 mg twice a day, Pepcid, metoprolol. Patient states that she was hospitalized for cholecyst ectomy on 06/15/2021. She was also diagnosed with atrial flutter, and was started onEliquis. Patient states that she is not taking aspirin and Plavix, only taking Eliquis. Patient also has history of seizure disorder since she was 6 years old. She has been on Dilantin. She has history of grand mal seizures as well as petit mal seizure "loses time". Patient states that she has not had any grand mal seizure for "years and years. Likewise she has not had any petit mal seizure since 1988. 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 Review of Systems As above in detail. Denies any chest pain shortness or breath wheezing or cough. Denies abdominal pain, nausea vomiting diarrhea. No fever or chills. All other review of systems reviewed and noncontributory. Past Medical History Past Medical History: COPD, CVA/TIA, Pneumonia, Seizure Disorder Additional Past Medical History / Comment(s): CVA 6 years ago with right sided weakness, epilepsy History of Any Multi-Drug Resistant Organisms: None Reported Past Surgical History: Appendectomy, Tubal Ligation Additional Past Surgical History / Comment(s): part of Right ovary removed Past Anesthesia/Blood Transfusion Reactions: No Reported Reaction Additional Past Anesthesia/Blood Transfusion Reaction / Comment(s): Never received blood Past Psychological History: No Psychological Hx Reported Smoking Status: Current every day smoker Past Alcohol Use History: None Reported Past Drug Use History: None Reported - Past Family History Mother Family Medical History: Respiratory Disorder Additional Family Medical History / Comment(s): Mother had pneumo's. She was a heavy smoker. She comitted suicide at 59yrs of age. Father Family Medical History: Congestive Heart Failure (CHF), Myocardial Infarction (CT), Renal Disease Additional Family Medical History / Comment(s): Father was an alcoholic. He had CHF and [address] He had one kidney that never developed after age 2yrs. He of kidney failure. Medications and Allergies Home Medications Medication Instructions Recorded Confirmed Type Phenytoin Sodium Extended 100 mg PO TID 08/09/15 07/11/21 History [Dilantin] Clopidogrel [Plavix] 75 mg PO DAILY 12/21/16 07/11/21 History Aspirin EC [Ecotrin Low Dose] 81 mg PO DAILY 07/23/19 07/11/21 History Gabapentin [Neurontin] 100 mg PO QID 07/23/19 07/11/21 History Ascorbic Acid [Vitamin C] 1,000 mg PO DAILY 06/11/21 07/11/21 History Calcium Carb/Mag Ox/Zinc Sulf 1 tab PO DAILY 06/11/21 07/11/21 History [Ylv-Zuv-Veje 334-134-5 mg Tab] L.acidoph,Paracasei, B.lactis 1 cap PO DAILY 06/11/21 07/11/21 History [Probiotic] Ubidecarenone [Co Q-10] 100 mg PO DAILY 06/11/21 07/11/21 History Apixaban [Eliquis] 5 mg PO BID #60 tab 06/17/21 07/11/21 Rx Albuterol Inhaler [Ventolin Hfa 1 puff INHALATION RT-QID #1 vial 06/18/21 07/11/21 Rx Inhaler] Famotidine [Pepcid] 20 mg PO BID #30 tab 06/18/21 07/11/21 Rx Metoprolol Tartrate [Lopressor] 50 mg PO BID 07/11/21 07/11/21 History Allergies Allergy/AdvReac Type Severity Reaction Status Date / Time Iodinated Contrast Media Allergy Anaphylaxis Verified 06/11/21 16:16 [Iodinated Contrast Media - IV Dye] Penicillins Allergy Swelling Verified 06/11/21 16:16 Physical Examination - Vital Signs Vital Signs: Vital Signs Temp Pulse Pulse Resp BP BP Pulse Ox 07/12/21 08:00 98 18 07/12/21 07:15 97.6 F 98 18 169/83 94 L 07/12/21 03:04 79 17 158/68 93 L 07/11/21 23:31 97.9 F 74 17 99/63 94 L 07/11/21 20:55 97.6 F 76 16 109/76 94 L 07/11/21 20:15 67 18 106/63 96 07/11/21 20:00 77 20 106/67 95 07/11/21 19:30 98.0 F 75 22 123/75 95 07/11/21 19:00 71 20 111/63 95 07/11/21 18:50 82 18 122/85 96 07/11/21 18:35 73 16 128/67 95 07/11/21 18:20 71 18 137/64 95 07/11/21 18:05 73 18 125/60 95 07/11/21 17:50 70 18 138/65 96 07/11/21 17:37 71 18 125/85 97 07/11/21 17:18 97.9 F 77 18 143/79 96 Intake and Output 07/11/21 07/12/21 07/12/21 22:59 06:59 14:59 Output Total 200 200 Balance -200 -200 Output: Urine 200 200 Other: Voiding Method Toilet # Voids 1 1 Weight 53.615 kg 54.6 kg Patient is an elderly female, very pleasant, in no acute distress. Patient is alert awake oriented to time place and person. Speech and language functions are normal. Patient can name objects and repeat sentences without difficulty. No aphasia or dysarthria. Comprehension is intact. Attention, concentration and fund of knowledge is adequate. On cranial examination, pupils are round and reacting to light, visual love are full on confrontation, extraocular muscles are intact with no nystagmus. Patient has mild right-sided facial asymmetry, tongue protrudes to the midline. Palatal elevation and sensation normal, hearing and shoulder shrug normal, facial sensation normal. On muscle strength testing, there is very mild right pronator drift and the strength is normal in arms and legs distally and proximally. Deep tendon reflexes are (right/left) biceps 2/3, brachioradialis 2/3, knee 2/2, ankles 1/1, plantars are downgoing bilaterally. Sensory to touch is equal with no neglect on double simultaneous stimulation. Cerebellar function showed ataxia for [id number] testing on the right. Tone and bulk of muscles normal. Gait deferred. On general examination, there is no carotid bruit or murmur, S1-S2 audible. Abdomen is soft nontender. Chest is clear. Peripheral pulses are present. No edema. Results - Laboratory Findings CBC and BMP: 07/12/21 07:55 07/12/21 07:55 Abnormal Lab Findings: Abnormal Labs 07/11/21 07/11/21 07/11/21 17:26 17:26 17:26 Hct 46.8 H Sodium 135 L Creatinine Glucose 106 H Cholesterol 245 H LDL Cholesterol, Calc 170.6 H 07/12/21 07/12/21 07:55 07:55 Hct 46.3 H Sodium Creatinine 0.49 L Glucose 155 H Cholesterol LDL Cholesterol, Calc Assessment and Plan Assessment: * 71-year-old female, presenting with an episode of right hemiparesis, with sensation of pulling feeling in the right side of her face. Her symptoms have completely resolved, although patient has evidence of ataxia for [id number] on the right. Differential diagnosis is between stroke/TIA, versus ?focal seizure with post ictal Alexy's paralysis. * History of seizure disorder since childhood, on Dilantin. Dilantin level subtherapeutic. * History of CVA in May 2015 with very minimal deficits on the right. Plan: * Patient will undergo MRI of the brain to evaluate for an acute stroke. * EEG to rule out any epileptiform activity. * Continue Dilantin 100 mg 3 times a day. Patient claims she has not had any seizures for over a couple decades. * Patient has history of atrial fibrillation diagnosed a month ago. Resume Eliquis. * We will follow. Addendum 7 PM: MRI of the brain revealed nonspecific white matter demyelination, could be related to chronic small vessel ischemic changes. There is age-related atrophy. No subacute ischemia. EEG was abnormal due to presence of focal dysrhythmic activity involving the left posterior temporal region with some sharp-appearing waves in the same region. This is suggestive of focal cortical neuronal dysfunction, which may have underlying cortical irritability and tendency for seizures. No electrical graphics seizure was recorded. Patient possibly is having focal seizures. We will give an extra loading dose of Dilantin 500 mg IV. Recheck Dilantin level in the morning. Resume Eliquis.
--- NOTE | 2021-07-12 15:17 | MR ---
MR brain without contrast HISTORY: Stroke versus TIA, neuro deficit Correlation to MR brain 04/16/2016 Multiplanar multisequence imaging through the brain There is no restricted diffusion to suggest subacute ischemia. Scattered and confluent pericallosal, periventricular, subcortical white matter hyperintensities are present on inversion recovery T2-weigh viry sequences, increased signal also noted within the carter similar to prior exam. There has been slig ht interval increase in number of lesions, Jimenez's finger type lesions are present on axial image #2 2, the largest lesion in the left frontal lobe on axial image 22 measures approximately 11 mm which i s developed in the interval. There is no hemorrhage or hydrocephalus. Cortical atrophy is present. Th ere are expected vascular flow voids. Corpus callosum, pituitary, cervical medullary junction, cerebe llopontine angles are within normal limits. IMPRESSION: Nonspecific white matter demyelination could be related to chronic small vessel ischemic changes. There is age-related atrophy. No subacute ischemia.
[2021-07-12] MEDS ORDERED: [UNRECOGNIZED DRUG - OTHER] PO SCH ×3 (16:00→22:00)
--- NOTE | 2021-07-12 18:13 | EEG ---
ELECTROENCEPHALOGRAM REPORT DATE OF SERVICE: 07/12/2021 PREAMBLE: This is a 71-year-old female who has history of seizure disorder, came to the hospital for seizure versus TIA. This study is performed to evaluate for any epileptiform activity. EEG FINDINGS: This is a 21-channel routine EEG recording in a patient utilizing 10/20 international system with referential and bipolar montages. Background consists of well developed, well regulated, moderate voltage activity in 8-9 hertz alpha. Background is posterior- dominant and reactive to eye opening and closing. Photic driving response was not seen. There is frequent focal dysrhythmic activity seen in the left posterior temporal region. Some sharp-appearing waves were also seen in the same distribution. Different stages of sleep were not seen. No electrographic seizure was recorded. IMPRESSION: This is an abnormal EEG due to the presence of focal dysrhythmic activity involving the left posterior temporal region with some sharp-appearing waves in the same region. This is suggestive of focal cortical neural dysfunction, which may have underlying cortical irritability and tendency for seizures. No electrographic seizure was recorded. MMODL / IJN: [id number] /
[2021-07-12] MEDS ORDERED: PHENYTOIN SODIUM INJ 500 MG in SODIUM CHLORIDE 0.9% 100 ML IVPB STA (20:12)
[2021-07-12 20:15] VITALS: RESP 16
--- NOTE | 2021-07-12 21:32 | P.HPIM ---
History of Present Illness H&P Date: 07/12/21 Chief Complaint: Right-sided weakness Patient is a 71-year-old female with a known history of CVA/TIA with mild residual right-sided weakness, seizure disorder, COPD, atrial flutter on anticoagulation with Eliquis ongoing nicotine addiction and recent history of cholecystectomy presents to ER with complaints of sudden onset of right-sided facial droop followed by right-sided weakness/ numbness while she was watching TV. Patient's symptoms started around 4:40 PM yesterday evening. Patient letter was having heart racing or fast and symptoms lasted about 4 to 5 hours. Right-sided weakness gradually gets better. She was also having slurred speech and could not talk. Denied any loss of consciousness. Patient called EMS and was brought to the hospital. On admission blood pressure was 143/79 pulse is [address] head showed no acute intracranial hemorrhage, midline shift or mass-effect. Chronic changes without significant changes since prior study. CT angiogram of the head and neck showed no evidence of occlusion or significant stenosis within [place]. Mild bilateral left greater than right narrowing at the carotid bifurcation. Centrilobular emphysema, left upper lobe pleural thickening. Thickening along the anterior upper tracheal wall. EKG showed normal sinus rhythm Chest x-ray showed COPD and pulmonary arterial hypertension. Otherwise no definite acute process. Laboratory data showed WBC 7.8 hemoglobin 16.0 and platelets 197 Sodium 135 potassium 4.5 chloride 103 BUN 18 creatinine 0.52 LDL 170 Dilantin level 6.2 with therapeutic range 10.0-20.0 Review of Systems Constitutional: Patient denies any fever or chills . No generalized weakness or weight loss. Abdomen: Patient denied nausea vomiting and diarrhea and abdominal pain. Cardiovascular: Patient denies any chest pain or short of breath no palpitations. Respiratory: patient denied any cough or sputum production. No shortness of breath Neurologic: Patient denied any numbness or tingling headache. Musculoskeletal: Patient denies any complaints of joint swelling or deformity. Skin: Negative Psychiatric: Negative Endocrine: No heat or cold intolerance. No recent weight gain. Genitourinary: No dysuria or hematuria. All other 14 point ROS negative except the above Past Medical History Past Medical History: COPD, CVA/TIA, Pneumonia, Seizure Disorder Additional Past Medical History / Comment(s): CVA 6 years ago with right sided weakness, epilepsy History of Any Multi-Drug Resistant Organisms: None Reported Past Surgical History: Appendectomy, Tubal Ligation Additional Past Surgical History / Comment(s): part of Right ovary removed Past Anesthesia/Blood Transfusion Reactions: No Reported Reaction Additional Past Anesthesia/Blood Transfusion Reaction / Comment(s): Never received blood Past Psychological History: No Psychological Hx Reported Smoking Status: Current every day smoker Past Alcohol Use History: None Reported Past Drug Use History: None Reported - Past Family History Mother Family Medical History: Respiratory Disorder Additional Family Medical History / Comment(s): Mother had pneumo's. She was a heavy smoker. She comitted suicide at 59yrs of age. Father Family Medical History: Congestive Heart Failure (CHF), Myocardial Infarction (TX), Renal Disease Additional Family Medical History / Comment(s): Father was an alcoholic. He had CHF and 7 TX's. He had one kidney that never developed after age 2yrs. He of kidney failure. Medications and Allergies Home Medications Medication Instructions Recorded Confirmed Type Phenytoin Sodium Extended 100 mg PO TID 08/09/15 07/11/21 History [Dilantin] Clopidogrel [Plavix] 75 mg PO DAILY 12/21/16 07/11/21 History Aspirin EC [Ecotrin Low Dose] 81 mg PO DAILY 07/23/19 07/11/21 History Gabapentin [Neurontin] 100 mg PO QID 07/23/19 07/11/21 History Ascorbic Acid [Vitamin C] 1,000 mg PO DAILY 06/11/21 07/11/21 History Calcium Carb/Mag Ox/Zinc Sulf 1 tab PO DAILY 06/11/21 07/11/21 History [Hgl-Ujc-Lddy 334-134-5 mg Tab] L.acidoph,Paracasei, B.lactis 1 cap PO DAILY 06/11/21 07/11/21 History [Probiotic] Ubidecarenone [Co Q-10] 100 mg PO DAILY 06/11/21 07/11/21 History Apixaban [Eliquis] 5 mg PO BID #60 tab 06/17/21 07/11/21 Rx Albuterol Inhaler [Ventolin Hfa 1 puff INHALATION RT-QID #1 vial 06/18/21 07/11/21 Rx Inhaler] Famotidine [Pepcid] 20 mg PO BID #30 tab 06/18/21 07/11/21 Rx Metoprolol Tartrate [Lopressor] 50 mg PO BID 07/11/21 07/11/21 History Allergies Allergy/AdvReac Type Severity Reaction Status Date / Time Iodinated Contrast Media Allergy Anaphylaxis Verified 06/11/21 16:16 [Iodinated Contrast Media - IV Dye] Penicillins Allergy Swelling Verified 06/11/21 16:16 Physical Exam Vitals: Vital Signs Temp Pulse Pulse Resp BP BP Pulse Ox 07/12/21 08:00 98 18 07/12/21 07:15 97.6 F 98 18 169/83 94 L 07/12/21 03:04 79 17 158/68 93 L 07/11/21 23:31 97.9 F 74 17 99/63 94 L 07/11/21 20:55 97.6 F 76 16 109/76 94 L 07/11/21 20:15 67 18 106/63 96 07/11/21 20:00 77 20 106/67 95 07/11/21 19:30 98.0 F 75 22 123/75 95 07/11/21 19:00 71 20 111/63 95 07/11/21 18:50 82 18 122/85 96 07/11/21 18:35 73 16 128/67 95 07/11/21 18:20 71 18 137/64 95 07/11/21 18:05 73 18 125/60 95 07/11/21 17:50 70 18 138/65 96 07/11/21 17:37 71 18 125/85 97 07/11/21 17:18 97.9 F 77 18 143/79 96 Intake and Output 07/11/21 07/12/21 07/12/21 22:59 06:59 14:59 Output Total 200 200 Balance -200 -200 Output: Urine 200 200 Other: Voiding Method Toilet # Voids 1 1 Weight 53.615 kg 54.6 kg PHYSICAL EXAMINATION: Patient is lying in the bed comfortably, no acute distress, awake alert and oriented.. HEENT: Normocephalic. Neck is supple. Pupils reactive. Nostrils clear. Oral cavity is moist. Neck reveals no JVD, carotid bruits, or thyromegaly. CHEST EXAMINATION: Trachea is central. Symmetrical expansion. Lung love clear to auscultation and percussion. CARDIAC: Normal S1, S2 with no gallops. No murmurs ABDOMEN: Soft. Bowel sounds normal. No organomegaly. No abdominal bruits. Extremities: reveal no edema. No clubbing or cyanosis Neurologically awake, alert, oriented x3. Ataxia with finger-nose coordination. Mild right-sided weakness. Skin: No rash or skin lesions. Psychiatric: Coperative. Nonsuicidal Musculoskeletal: No joint swelling or deformity. Normal range of motion. Results CBC & Chem 7: 07/12/21 07:55 07/12/21 07:55 Labs: Abnormal Lab Results - Last 24 Hours (Table) 07/11/21 07/11/21 07/11/21 Range/Units 17:26 17:26 17:26 Hct 46.8 H (34.0-46.0) % Sodium 135 L (137-145) mmol/L Creatinine (0.52-1.04) mg/dL Glucose 106 H (74-99) mg/dL Cholesterol 245 H (0-200) mg/dL LDL Cholesterol, Calc 170.6 H (0.0-131.0) mg/dL 07/12/21 07/12/21 Range/Units 07:55 07:55 Hct 46.3 H (34.0-46.0) % Sodium (137-145) mmol/L Creatinine 0.49 L (0.52-1.04) mg/dL Glucose 155 H (74-99) mg/dL Cholesterol (0-200) mg/dL LDL Cholesterol, Calc (0.0-131.0) mg/dL Thrombosis Risk Factor Assmnt - DVT/VTE Prophylaxis DVT/VTE Prophylaxis: Pharmacologic Prophylaxis ordered - Choose All That Apply Each Risk Factor Represents 2 Points: Age 61-74 years Thrombosis Risk Factor Assessment Total Risk Factor Score: 2 Thrombosis Risk Factor Assessment Level: Low Risk Assessment and Plan Assessment: Right-sided hemiparalysis and facial droop. Possible acute CVA/TIA. Focal seizure with postictal Alexy's paralysis is in the differential. History of CVA in 2015 with minimal right-sided weakness. History of seizure disorder Subtherapeutic Dilantin level Hyperlipidemia Recent history of cholecystectomy Atrial flutter on anticoagulation with Eliquis. COPD not in exacerbation Ongoing nicotine addiction DVT prophylaxis patient is already on full anticoagulation Patient will be continued on telemetry monitoring. Continue with neurochecks, seizure precautions and neurology was consulted. Patient had stroke work-up including CT head and CTA of the head and neck was o done. EEG was ordered to rule out seizures. MRI of the was ordered.. Continue to follow closely. Neurology is on board. Time with Patient: Greater than 30
[2021-07-12] MEDS: APIXABAN 5 MG TAB PO SCH (22:05)
[2021-07-13 08:09] VITALS: TEMP 97.9
[2021-07-13] MEDS: METOPROLOL TARTRATE 50 MG TAB PO SCH (08:12)
[2021-07-13] MEDS: ATORVASTATIN 40 MG TAB PO SCH (08:12)
[2021-07-13] MEDS: GABAPENTIN 100 MG CAP PO SCH ×2 (08:12→13:09)
[2021-07-13] MEDS: APIXABAN 5 MG TAB PO SCH (08:12)
[2021-07-13] MEDS: [UNRECOGNIZED DRUG - OTHER] PO SCH ×2 (08:13→13:09)
[2021-07-13 15:48] VITALS: BP 115/61; PULSE 66
--- NOTE | 2021-07-14 09:57 | P.PN ---
Subjective Progress Note Date: 07/13/21 07/13/2021: This is a Tele-neurology follow-up performed on the patient today on 07/13/2021. Patient states she is feeling well. No new symptoms. She is back to baseline. She wants to go home. She lives with her and 2 daughters. She states her family takes care of her very well. No new focal symptoms. Objective - Vital Signs Vital signs: Vital Signs Temp 97.9 F 07/13/21 08:09 Pulse 63 07/13/21 11:00 Resp 16 07/13/21 11:00 BP 107/62 07/13/21 11:00 Pulse Ox 94 L 07/13/21 11:00 Intake & Output 07/12/21 07/13/21 07/13/21 18:59 06:59 18:59 Intake Total 1315 480 Output Total 200 Balance 1115 480 Weight 53.9 kg Intake: Oral 1315 480 Output: Urine 200 Other: Voiding Method Toilet Toilet Toilet # Voids 4 2 2 - Exam On examination patient is an elderly female, in no acute distress. She is alert and awake fully oriented. Speech and language functions are normal. Cranial nerves are all intact. Face is symmetric. Visual love full. On checking for pronator drift, her right arm starts trembling, but no definitive drift. Strength appears equal. - Labs CBC & Chem 7: 07/12/21 07:55 07/12/21 07:55 Assessment and Plan Assessment: * 71-year-old female, presenting with an episode of right hemiparesis, with sensation of pulling feeling in the right side of her face. Her symptoms have completely resolved, although patient has evidence of ataxia for [id number] on the right. Differential diagnosis is between stroke/TIA, versus ?focal seizure with post ictal Alexy's paralysis. * History of seizure disorder since childhood, on Dilantin. Dilantin level subtherapeutic. * History of CVA in May 2015 with very mild residual deficits on the right (ataxia). Plan: * MRI of the brain revealed nonspecific white matter demyelination, could be related to chronic small vessel ischemic changes. There is age-related atrophy. No subacute ischemia. * EEG was abnormal due to presence of focal dysrhythmic activity involving the left posterior temporal region with some sharp-appearing waves in the same region. This is suggestive of focal cortical neuronal dysfunction, which may have underlying cortical irritability and tendency for seizures. No electrical graphics seizure was recorded. * Patient's Dilantin level was subtherapeutic. Patient possibly is having focal seizures. Patient apparently declined the loading dose of Dilantin last night. Instead she was given one extra tablet of Dilantin. Patient was suggested to start taking Dilantin 100 mg capsules, 4 capsules on even days and 3 capsules in the odd days. In other words, she will take Dilantin 100 mg 3 times a day, and extra 100 mg tablet at bedtime only on even days of the month. She was recommended to have Dilantin level checked in 2 weeks at her primary physician's office. Her Dilantin level this morning has improved 8.6. * Continue Eliquis 5 mg twice a day for stroke prevention. 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 * Neurologically clear for discharge.
--- NOTE | 2021-08-05 23:44 | P.DS ---
Providers Date of admission: 07/11/21 19:27 Expected date of discharge: 07/13/21 Attending physician: Pao Rowe Consults: 07/11/21 19:27 Consult Physician Urgent Consulting Provider: Deepthi Schmid Consult Reason/Comments: transient right hemiparesis, suspected tia Do you want consulting provider notified?: Yes [facility] Course: Discharge diagnosis Right-sided hemiparalysis and facial droop. liklely focal seizure with postictal Alexy's paralysis.CVA/TIA is in the differential. MRI showed no acute infract, History of CVA in 2015 with minimal right-sided weakness. History of seizure disorder Subtherapeutic Dilantin level Hyperlipidemia Recent history of cholecystectomy Atrial flutter on anticoagulation with Eliquis. COPD not in exacerbation Ongoing nicotine addiction DVT prophylaxis patient is already on full anticoagulation Hospital course Patient is a 71-year-old female with a known history of CVA/TIA with mild residual right-sided weakness, seizure disorder, COPD, atrial flutter on anticoagulation with Eliquis ongoing nicotine addiction and recent history of cholecystectomy presents to ER with complaints of sudden onset of right-sided facial droop followed by right-sided weakness/ numbness while she was watching TV. Patient's symptoms started around 4:40 PM yesterday evening. Patient letter was having heart racing or fast and symptoms lasted about 4 to 5 hours. Right-sided weakness gradually gets better. She was also having slurred speech and could not talk. Denied any loss of consciousness. Patient called EMS and was brought to the hospital. On admission blood pressure was 143/79 pulse is [address] head showed no acute intracranial hemorrhage, midline shift or mass-effect. Chronic changes without significant changes since prior study. CT angiogram of the head and neck showed no evidence of occlusion or significant stenosis within [place]. Mild bilateral left greater than right narrowing at the carotid bifurcation. Centrilobular emphysema, left upper lobe pleural thickening. Thickening along the anterior upper tracheal wall. EKG showed normal sinus rhythm Chest x-ray showed COPD and pulmonary arterial hypertension. Otherwise no definite acute process. Laboratory data showed WBC 7.8 hemoglobin 16.0 and platelets 197 Sodium 135 potassium 4.5 chloride 103 BUN 18 creatinine 0.52 LDL 170 Dilantin level 6.2 with therapeutic range 10.0-20.0 Patient had stroke work-up including CT head and CTA of the head and neck was done. Patient was continued telemetry monitoring and neuro checks. Stroke work-up including MRI of the head was done showed no acute ischemia noted. EEG was abnormal due to presence of focal dysthymic activity involving the left posterior temporal region with some sharp appearing waves in the region. Patient's Dilantin level was subtherapeutic on admission. Her symptoms are most likely due to focal seizures. Patient declined loading dose of Dilantin last night and was given extra dose of Dilantin tablet. Patient was advised to take 4 capsules of 100 mg on even days and 3 capsules in the ER days. She was recommended to follow-up with neurology and primary care physician in the next 2 weeks., To recheck Dilantin levels. Continue with Eliquis for stroke prophylaxis. 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 Otherwise patient is improved clinically and no focal weakness noted today. Patient is cleared from neurology standpoint. And is being discharged home today. PHYSICAL EXAMINATION: Patient is lying in the bed comfortably, no acute distress, awake alert and oriented.. HEENT: Normocephalic. Neck is supple. Pupils reactive. Nostrils clear. Oral cavity is moist. Neck reveals no JVD, carotid bruits, or thyromegaly. CHEST EXAMINATION: Trachea is central. Symmetrical expansion. Lung love clear to auscultation and percussion. CARDIAC: Normal S1, S2 with no gallops. No murmurs ABDOMEN: Soft. Bowel sounds normal. No organomegaly. No abdominal bruits. Extremities: reveal no edema. No clubbing or cyanosis Neurologically awake, alert, oriented x3. Ataxia with finger-nose coordination. no focal weakness. Skin: No rash or skin lesions. Psychiatric: Coperative. Nonsuicidal Musculoskeletal: No joint swelling or deformity. Normal range of motion. Vital signs: Vital Signs Temp 97.9 F 07/13/21 08:09 Pulse 63 07/13/21 11:00 Resp 16 07/13/21 11:00 BP 107/62 07/13/21 11:00 Pulse Ox 94 L 07/13/21 11:00 Intake & Output 07/12/21 07/13/21 07/13/21 18:59 06:59 18:59 Intake Total 1315 480 Output Total 200 Balance 1115 480 Weight 53.9 kg Intake: Oral 1315 480 Output: Urine 200 Other: Voiding Method Toilet Toilet Toilet # Voids 4 2 2 Patient Condition at Discharge: Stable Plan - Discharge Summary Discharge Rx Participant: No New Discharge Prescriptions: New Atorvastatin [Lipitor] 40 mg PO DAILY #30 tab Continue Gabapentin [Neurontin] 100 mg PO QID Calcium Carb/Mag Ox/Zinc Sulf [Mep-Spg-Tjlo 334-134-5 mg Tab] 1 tab PO DAILY Ascorbic Acid [Vitamin C] 1,000 mg PO DAILY Ubidecarenone [Co Q-10] 100 mg PO DAILY Famotidine [Pepcid] 20 mg PO BID #30 tab L.acidoph,Paracasei, B.lactis [Probiotic] 1 cap PO DAILY Apixaban [Eliquis] 5 mg PO BID #60 tab Albuterol Inhaler [Ventolin Hfa Inhaler] 1 puff INHALATION RT-QID #1 vial Metoprolol Tartrate [Lopressor] 50 mg PO BID Changed Phenytoin Sodium Extended [Dilantin] 100 mg PO QID #120 cap Discontinued Clopidogrel [Plavix] 75 mg PO DAILY Aspirin EC [Ecotrin Low Dose] 81 mg PO DAILY Discharge Medication List Gabapentin [Neurontin] 100 mg PO QID 07/23/19 [History] Ascorbic Acid [Vitamin C] 1,000 mg PO DAILY 06/11/21 [History] Calcium Carb/Mag Ox/Zinc Sulf [Irx-Rex-Cydl 334-134-5 mg Tab] 1 tab PO DAILY 06/11/21 [History] L.acidoph,Paracasei, B.lactis [Probiotic] 1 cap PO DAILY 06/11/21 [History] Ubidecarenone [Co Q-10] 100 mg PO DAILY 06/11/21 [History] Apixaban [Eliquis] 5 mg PO BID #60 tab 06/17/21 [Rx] Albuterol Inhaler [Ventolin Hfa Inhaler] 1 puff INHALATION RT-QID #1 vial 06/18/21 [Rx] Famotidine [Pepcid] 20 mg PO BID #30 tab 06/18/21 [Rx] Metoprolol Tartrate [Lopressor] 50 mg PO BID 07/11/21 [History] Atorvastatin [Lipitor] 40 mg PO DAILY #30 tab 07/13/21 [Rx] Phenytoin Sodium Extended [Dilantin] 100 mg PO QID #120 cap 07/13/21 [Rx] Follow up Appointment(s)/Referral(s): [facility], [NON-STAFF] - Anup Ron DO [Primary Care Provider] - 1-2 days Patient Instructions/Handouts: Seizure/Epilepsy Discharge Instructions & Follow-Up Activity/Diet/Wound Care/Special Instructions: Continue Dilantin, take 3 capsules on odd days, and 4 capsules on even days. Follow up with your primary doctor in 1-2 weeks to have your levels checked. Continue wearing your holter monitor as ordered. Discharge Disposition: HOME SELF-CARE
== END 2021-07-13 17:03 | disposition home or self-care (01) ==
LOC: EC 17:17 → 3SCARD 19:27 → INTOOBSV 19:27 → 3SCARD 20:06 → UNDODISIN 07-13 17:03
PROVIDERS: ADMIT Internal Medicine; ATTEND Internal Medicine
DX: R29.810 Facial weakness (principal); I69.351 Hemiplegia and hemiparesis following cerebral infarction affecting right dominant side; G40.409 Other generalized epilepsy and epileptic syndromes, not intractable, without status epilepticus; E78.5 Hyperlipidemia, unspecified; I48.92 Unspecified atrial flutter; I48.91 Unspecified atrial fibrillation; J43.2 Centrilobular emphysema; R20.0 Anesthesia of skin; R47.81 Slurred speech; R27.0 Ataxia, unspecified; R00.2 Palpitations; F17.200 Nicotine dependence, unspecified, uncomplicated; Z90.49 Acquired absence of other specified parts of digestive tract; Z87.01 Personal history of pneumonia (recurrent); Z79.899 Other long term (current) drug therapy; Z79.82 Long term (current) use of aspirin; Z79.01 Long term (current) use of anticoagulants; Z79.02 Long term (current) use of antithrombotics/antiplatelets; Z88.0 Allergy status to penicillin; Z91.041 Radiographic dye allergy status; Z90.721 Acquired absence of ovaries, unilateral; Z83.6 Family history of other diseases of the respiratory system; Z81.8 Family history of other mental and behavioral disorders; Z82.49 Family history of ischemic heart disease and other diseases of the circulatory system; Z81.1 Family history of alcohol abuse and dependence; Z84.1 Family history of disorders of kidney and ureter
CPT/HCPCS: 96374; 96375; 99291; 36415; 94760; 95816; 93005; 97162; 97166; 80061; 80053 ×2; 80185 ×2; 83735; 84484; 85025 ×2; 85610; 85730; 71046; 70496; 70450; 70498; 70551; G0378 ×3; J1200; J2930; Q9967; 99285